=== PATIENT | female | born 1945 | race Caucasian/White ===

== ENCOUNTER 2023-08-15 18:01 | Inpatient (IN) | payer OTHER, SELFPAY ==
--- NOTE | ~2023-08-15 | XR_ITS ---
EXAMINATION: XR CHEST CLINICAL INFORMATION: Tachycardia, rule out pneumonia COMPARISON: None available. TECHNIQUE: Frontal view of the chest was obtained. FINDINGS: The heart and mediastinal borders are normal. No pleural effusion. No focal consolidation. Bilateral glenohumeral degenerative changes. XR/XR chest 1V IMPRESSION: No focal consolidation to suggest pneumonia.
[2023-08-15 18:45] VITALS: BP 177/85; PULSE 82; RESP 15; TEMP 36.7; O2SAT 97
[2023-08-15 18:50] VITALS: BMI 29.1
[2023-08-15 20:00] VITALS: BP 139/69; PULSE 82; RESP 18; TEMP 36.8; O2SAT 97
--- NOTE | 2023-08-15 22:15 | PC.ADMIT ---
patient arrived on unit via stretcher 08/15/23 at 1842, patient had been endorsing SI before arriving at [facility], Patient says Zoloft had not been helping with her depression, she says she feels depressed, patient said she had a fall last week, got stuck and couldn't get up. she said she was laying there thinking how she could end her life. she says she gas been upset since. Med Hx RA, Glaucoma, patient contracts for safety, says she wants to sleep and will do assessments in morning.
--- NOTE | 2023-08-16 | ECG_ITS ---
Test Reason : R/O qtc elongation Blood Pressure : / mmHG Vent. Rate : 171 BPM Atrial Rate : 000 BPM P-R Int : 000 ms QRS Dur : 064 ms QT Int : 232 ms P-R-T Axes : 000 046 -88 degrees QTc Int : [address] depression, consider subendocardial injury Nonspecific T wave abnormality Abnormal ECG No previous ECGs available Referred By: Espinoza Ferguson Electronically Signed By:CHRISTY YU MD
--- NOTE | 2023-08-16 07:05 | HO.PSYADMNOT ---
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 She was rushed to [facility] medically cleared. Apparently the patient had been more depressed and in the last days her psychiatrist started on a low dose of Zoloft but apparently worked only for the 1st days and she felt more depressed. While she was at [facility] she disclosed suicidal ideation without a clear plan or intent and she was transferring to this facility for psychiatric stabilization. On the intake interview, the patient reported that she had been feeling depressed with depressed mood, anhedonia, lack of energy, feelings of hopelessness and recently with suicidal ideation after a short trial of Zoloft 25 p.o. daily. She denies prior psychiatric history, she adamantly denies psychotic symptoms and she is able to contract for safety in the facility. While we were interviewing her, she reported that she was feeling very dizzy even though that her vital signs were stable. We order CBC, UA and an EKG on top of her regular blood work that was done today in the morning. We discussed risks, benefits, side-effects and alternatives and she agreed to continue treatment. We will try to gather more collateral information. Past Psychiatric History: She denies prior psychiatric admissions, she started Zoloft recently by his primary care physician. Medical Evaluation Reviewed: Hospitalist Jean Pending [facility] Family History: Denies Social History: The patient is the 2nd of 3 children, her milestones were achieved at expected age and she was raised by her parents. 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 She has never been she does not have any children. Substance History: Denies current substance abuse Trauma History: Denies Diagnostics Vital Signs (24Hr): Vital Signs - 24 hr 08/15/23 18:45 08/15/23 20:00 Temperature 98.1 F 98.3 F Pulse Rate 82 82 Respiratory Rate 15 18 Blood Pressure 177/85 H 139/69 Pulse Oximetry 97 97 Oxygen Delivery Method Room Air Room Air BMI result Body Mass Index 29.1 Labs 08/16/23 06:51 Meds/Allergies Meds Home Medications ?Medication ?Instructions ?Recorded ?Confirmed ?Type aspirin 325 mg tablet 325 mg PO BID 08/15/23 08/15/23 History celecoxib 200 mg capsule 200 mg PO DAILY 08/15/23 08/15/23 History docusate sodium 100 mg capsule 100 mg PO 08/15/23 History (Colace) folic acid 1 mg tablet 1 mg PO DAILY 08/15/23 08/15/23 History latanoprost 0.005 % eye drops 1 drp ophthalmic (eye) BEDTIME 08/15/23 08/15/23 History leflunomide 20 mg tablet 20 mg PO DAILY 08/15/23 08/15/23 History methotrexate 25 subcut QWEEK 08/15/23 History pantoprazole 40 mg tablet,delayed 40 mg PO DAILY 08/15/23 08/15/23 History release polyethylene glycol 3350 PO DAILY 08/15/23 History senna 187 mg tablet mg PO 08/15/23 History Allergies Allergies Allergy/AdvReac Type Severity Reaction Status Date / Time etanercept [From Enbrel] Allergy Unknown Unknown Verified 08/15/23 18:23 Mental Status Exam Mental Status Exam Patient Appearance: Well Grooomed and Appropriate (On hospital gowns) Patient Orientation: Person, Place and Situation Level of Consciousness: Awake and Appropriate Patient Behavior: Appropriate and Passive Mood Description: Calm Affect Description: Constricted Patient Cognition Impaired: No Ability to Follow Directions: Good Speech Pattern: Clear Hallucinations: None Delusions: Not Present Thought Process: Distracted and Slowed Thinking Thought Content: positive for Keavy and positive for Circumstantial Judgement: Fair Assessment & Plan Assessment & Plan (1) Major depressive disorder: Status: Acute Code(s): F32.9 - Major depressive disorder, single episode, unspecified Plan The patient is an elderly female single, with no children with no prior psychiatric history who was referred from another hospital for suicidal ideation in the context of exacerbation of depressive symptoms. She was recently started on a low dose of Zoloft. On intake, she adamantly denies psychotic symptoms and she was able to contract for safety. Plan 1. Gather collateral information. 2. The patient agreed to contract for safety and we will change her observation to 15 minutes checks. 3. Continue Zoloft 25 p.o. daily. 4. Medical workout. We are ordering CBC, EKG and a UA since the patient was feeling dizzy the moment of the interview. 5. Reassessment with results. Patient educated on: diagnosis and therapeutic strategies Informed Consent: understands Reason for continued inpatient stay Substantial Risk for: inability to function, rapid decompensation and med/psych decompensation Statement Statement: I have reviewed the history and physical and performed a pertinent examination on my patient. No changes have occurred unless specified. If the History and Physical was not performed prior to admission, the Hospitalist's service will be consulted for completing the admission physical. Time Spent With Patient Time: Total time managing care of this patient today __45__ minutes.
[2023-08-16 07:55] LABS: Alanine Aminotransferase 22 U/L (0-31); Albumin Level 2.9 g/dL (3.5-5.0); Alkaline Phosphatase 85 U/L (39-117); Anion Gap 14 (12-20); Aspartate Amino Transferase 31 U/L (5-31); Bilirubin Total 0.7 mg/dL (0.0-1.0); Blood Urea Nitrogen 10 mg/dL (9-16); Carbon Dioxide 19 mmol/L (22-29); Chloride 105 mmol/L (96-108); Cholesterol 117 mg/dL (<200); Creatinine Clr Calc Pharmacy 56.8; Estimated Glomerular Filt Rate > 60; Glucose Fasting 131 mg/dL (60-99); HDL Cholesterol 37 mg/dL (>40); LDL Cholesterol Calculated 66 mg/dL (<100); Potassium 4.1 mmol/L (3.3-5.1); Sodium 134 mmol/L (135-145); Triglycerides 71 mg/dL (<150)
[2023-08-16 08:28] VITALS: BP 99/56; PULSE 81; RESP 15; TEMP 36.9; O2SAT 96
[2023-08-16] MEDS: Leflunomide 10 MG TABLET 20 MG PO (08:33)
[2023-08-16] MEDS: Folic Acid 1 MG TABLET PO (08:33)
[2023-08-16] MEDS: Celecoxib 200 MG CAPSULE PO (08:33)
[2023-08-16] MEDS: Aspirin 325 MG TABLET PO ×2 (08:46→20:53)
--- NOTE | 2023-08-16 10:02 | PC.NURSE ---
Pt suddenly became very sweaty, dizzy, and reported that she felt liike she was going to pass out . VSS. Reported to Dr. Ferguson who came out to see pt and stated he will order blood and urine work.
[2023-08-16 10:03] VITALS: BP 122/62; PULSE 90; RESP 16; TEMP 36.9; O2SAT 94
[2023-08-16 11:10] LABS: Hematocrit 37.8 % (37.0-47.0); Hemoglobin 12.4 g/dl (12.0-16.0); Mean Corpuscular HGB Conc 32.8 g/dl (31.0-35.0); Mean Corpuscular Hemoglobin 29.7 pg (27.0-33.0); Mean Corpuscular Volume 90.6 fL (80.0-98.0); Mean Platelet Volume 10.5 fL (9.4-12.3); Platelet Count 232 X10*3/uL (160-400); Red Blood Count 4.17 X10*6/uL (4.20-5.50); Red Cell Distribution Width 17.1 % (11.0-16.0); White Blood Count 10.8 X10*3/uL (4.8-10.8)
[2023-08-16 11:42] LABS: Appearance Urine Clear; Color Urine Yellow; Glucose Urine UA Negative (Negative); Leukocyte Esterase Urine Moderate (2+) (Negative); Nitrite Urine Negative (Negative); PH 6.5 (5.0-9.0); UMIC TRIGGER UACC YES; Urine Blood Negative (Negative); Urine Ketones Negative (Negative); Urine Protein Trace mg/dL (Neg-Trace)
[2023-08-16 11:50] LABS: SLIDE REVIEW MANUAL DIFF
[2023-08-16] MEDS: LORazepam 0.5 MG TABLET 0.25 MG PO (12:11)
[2023-08-16 12:12] VITALS: BP 101/60; PULSE 76
[2023-08-16] MEDS: Metoprolol Tartrate 25 MG TABLET PO (12:12)
[2023-08-16 12:15] LABS: Atypical Lymph Absolute Manual 0.4 x10*3/uL; Atypical Lymphs Percent Manual 4 % (0-6); Band Neutrophils Percent 4 % (3-5); Lymphocytes Absolute Manual 2.5 X10*3/uL (1.2-4.9); Lymphocytes Percent Manual 23 % (20-40); Metamyelocytes Absolute 0.1 X10*3/uL; Metamyelocytes Percent 1 %; Monocytes Absolute Manual 0.2 X10*3/uL (0.1-1.2); Monocytes Percent Manual 2 % (2-11); Neutrophils Absolute Manual 7.6 X10*3/uL (2.0-8.3); Neutrophils Percent Manual 66 % (45-73)
[2023-08-16 12:16] LABS: Platelet Estimate NORMAL (NORMAL); Platelet Morphology Comment NORMAL; RBC Morphology NORMAL; Smudge Cells PRESENT
--- NOTE | 2023-08-16 12:20 | PC.NURSE ---
Pt had EKG in response to symptoms-see previous note for additional information. EKG showed several concerns (see cardiac for reading) and a rapid response was called. This commercial insurance underwriter as well as Rocio Estrada (nursing sup dungeon master) questioned Niki Quinn with his decision to not send pt to [facility] for additional monitoring. He decided to keep pt on this floor. Pt will continue to be monitored.
[2023-08-16 12:53] LABS: Bacteria Urine Trace (None Seen); Hyaline Casts Urine 0-2 /LPF (0-2); RBC Urine 0-2 /HPF (0-2); UACC Culture Trigger YES
--- NOTE | 2023-08-16 13:07 | P.CONHOSP_ITS ---
History of Present Illness Data of Consult Service Date: 08/16/23 Primary Care Provider: Noe Dejesus MD HPI Reason for consult: Admission H&P and Rapid Response for abdnormal EKG Pt is a 77-year-old female with a PMH significant for?mild intermittent astham, rheumatoid arthritis, glaucoma, and depression who is admitted to [facility] for increasing depression with SI with plans for overdosing on her home medications. Initial medical consult for admission H&P. ?However, before patient could be seen a rapid response was called for abnormal EKG and elevated heart rate. Patient was sitting in the common area when she began to feel hot, diaphoretic, lightheaded, and felt like her heart was racing. Nursing noted elevated heart rate and EKG was done which showed sinus tachycardia of 171 but no evidence of significant ischemia. During this time patient denied chest pain or pressure and other vitals were stable, including BP. No shortness a breath or difficulty breathing. Repeat EKG was taken which showed sinus rhythm of 86 with PACs. Patient was given metoprolol 25 mg p.o. patient denies any other acute medical complaints. No nausea, vomiting, abdominal pain. No shortness a breath or difficulty breathing. No orthopnea. Denies polyuria or dysuria. States she was recently started on Zoloft last and initially had some improvement which did not last and she stopped taking it. Also notes she is on leflunomide and methotrexate for rheumatoid arthritis, though has missed her past two methotrexate weekly injections due to scheduling conflicts. Denies any significant cardiovascular history. Denies experiencing similar feelings before. Review of [facility] records show EKG with sinus rhythm of 83 with PACs, similar to repeat EKG here. Review of Systems 2 Review of Systems: Hot, diaphoretic Lightheadedness Palpitations/racing heart Denies chest pain/pressure No nausea, vomiting, abdominal pain Denies shortness of breath or difficulty breathing No headache or acute vision changes Denies changes to bowel or bladder habits. PMFSH Social History Household Members: None Housing: House Do you presently have visiting nurse or other home services: No Patient Tobacco Use Status: Never used Tobacco e-Cigarette/Vaping Use: Never Used Patient Interested in Nicotine Replacement: No Substance Use Type: Marijuana Substance Use Frequency: Monthly Last Used Substance: Weeks (ago) Currently Displaying Signs/Symptoms of Drug Intoxication Withdrawal: No Any prior treatment program specific to substance use: No Have you been hit, kicked, punched, or otherwise hurt by someone within the past year? If so, by whom?: No Do you feel safe in your current relationship?: No Current Relationship Is there a partner from a previous relationship who is making you feel unsafe now?: No Are you made to feel afraid or neglected: No Spiritual Healthcare Practices: Yoga Advance Directives: No Advance Directives Information Provided: No Do you have thoughts of harming others: None Do you have a plan to hurt others: No Plan Recently lost weight without trying: Yes How much weight loss: 2-13 pounds Eating poorly because of decreased appetite: Yes Nutrition screen score: 4 Nutrition Risks: No Nutritional Risk Patient : No : No Poor oral hygiene: No Meds Allergies Allergy/AdvReac Type Severity Reaction Status Date / Time etanercept [From Enbrel] Allergy Unknown Unknown Verified 08/15/23 18:23 Active Medications: Current Medications Acetaminophen (Acetaminophen 325 Mg Tablet) 650 mg PO Q6H PRN PRN Reason: Headache/Pain Mild Scale (1-3) Al Hydroxide/Mg Hydroxide (Magnesium Hydrox/Alum Hydrox 30 Ml Oral.Susp) 30 ml PO Q6H PRN PRN Reason: Heartburn/Nausea Aspirin (Aspirin 325 Mg Tablet) 325 mg PO BID [facility] Last Admin: 08/16/23 08:46 Dose: 325 mg Celecoxib (Celecoxib 200 Mg Capsule) 200 mg PO DAILY [facility] Last Admin: 08/16/23 08:33 Dose: 200 mg Folic Acid (Folic Acid 1 Mg Tablet) 1 mg PO DAILY [facility] Last Admin: 08/16/23 08:33 Dose: 1 mg Hydroxyzine HCl (Hydroxyzine Hcl 25 Mg Tablet) 25 mg PO Q6H PRN PRN Reason: Anxiety Latanoprost (Latanoprost 0.005 % Ophth Susana 2.5 Ml Drops) 1 drop EYE-BOTH BEDTIME [facility] Leflunomide (Leflunomide 10 Mg Tablet) 20 mg PO DAILY [facility] Last Admin: 08/16/23 08:33 Dose: 20 mg Magnesium Hydroxide (Milk Of Magnesia 30 Ml Oral.Susp) 30 ml PO DAILY PRN PRN Reason: Constipation Omeprazole (Omeprazole 20 Mg Capsule.Dr) 40 mg PO DAILY [facility] Last Admin: 08/16/23 08:31 Dose: Not Given Trazodone HCl (Trazodone Hcl 50 Mg Tablet) 50 mg PO BEDTIME MRX1 PRN PRN Reason: Insomnia Home Medications ?Medication ?Instructions ?Recorded ?Confirmed ?Last Taken ?Type aspirin 325 mg tablet 325 mg PO BID 08/15/23 08/15/23 Unknown History celecoxib 200 mg capsule 200 mg PO DAILY 08/15/23 08/15/23 Unknown History docusate sodium 100 mg capsule 100 mg PO 08/15/23 Unknown History (Colace) folic acid 1 mg tablet 1 mg PO DAILY 08/15/23 08/15/23 Unknown History latanoprost 0.005 % eye drops 1 drp ophthalmic (eye) BEDTIME 08/15/23 08/15/23 Unknown History leflunomide 20 mg tablet 20 mg PO DAILY 08/15/23 08/15/23 Unknown History methotrexate 25 subcut QWEEK 08/15/23 Unknown History pantoprazole 40 mg tablet,delayed 40 mg PO DAILY 08/15/23 08/15/23 Unknown History release polyethylene glycol 3350 PO DAILY 08/15/23 Unknown History senna 187 mg tablet mg PO 08/15/23 Unknown History Physical Exam 2 Vital Signs and Narrative: Vital Signs: Last Vital Signs Temp 98.4 F 08/16/23 10:03 Pulse 76 08/16/23 12:12 Resp 16 08/16/23 10:03 BP 101/60 08/16/23 12:12 Pulse Ox 94 08/16/23 10:03 O2 Del Method Room Air 08/16/23 10:03 BMI result Body Mass Index 29.1 General: AOx3, no acute distress Resp: CTA bilaterally CVS: S1, S2, RRR GI: +BS, NT, no distention Skin: Warm, dry Neuro: Cranial nerves II-XII grossly intact bilaterally. Motor grossly intact bilaterally Extremities: 1+ pitting edema Psych: Appropriate affect Results Labs 08/16/23 10:58 08/16/23 06:51 Labs: Laboratory Results - last 24 hr 08/16/23 08/16/23 08/16/23 06:51 10:58 11:10 MCV 90.6 MCH 29.7 MCHC 32.8 RDW 17.1 H Plt Count 232 MPV 10.5 Immature Gran % (Auto) Cancelled Neut % (Auto) Cancelled Lymph % (Auto) Cancelled Larimer % (Auto) Cancelled Eos % (Auto) Cancelled Baso % (Auto) Cancelled Lymph # (Auto) Cancelled Larimer # (Auto) Cancelled Eos # (Auto) Cancelled Baso # (Auto) Cancelled Abs Immat Gran (auto) Cancelled Absolute Neuts (auto) Cancelled Absolute Nucleated RBC 0.000 Nucleated RBC % (auto) 0.0 Neutrophils % (Manual) 66 Band Neutrophils % 4 Lymphocytes % (Manual) 23 Atypical Lymphs % (Man) 4 Monocytes % (Manual) 2 Metamyelocytes % 1 Abs Neuts (Manual) 7.6 Lymphocytes # (Manual) 2.5 Atyp Lymphs # (Manual) 0.4 Monocytes # (Manual) 0.2 Metamyelocytes # 0.1 Smudge Cells PRESENT Platelet Estimate NORMAL Plt Morphology Comment NORMAL RBC Morphology NORMAL Smear Tech's Comments MANUAL DIFF Anion Gap 14 Estim Creat Clear Calc 56.8 Estimated GFR > 60 Fasting Glucose 131 H Calcium 8.0 L Total Bilirubin 0.7 AST 31 ALT 22 Alkaline Phosphatase 85 Total Protein 6.0 L Albumin 2.9 L Triglycerides 71 Cholesterol 117 LDL Cholesterol, Calc 66 HDL Cholesterol 37 L Urine Color Yellow Urine Appearance Clear Urine pH 6.5 Ur Specific Ulysses 1.010 Urine Protein Trace Urine Glucose (UA) Negative Urine Ketones Negative Urine Blood Negative Urine Nitrite Negative Ur Leukocyte Esterase Moderate (2+) H Urine RBC 0-2 Urine WBC 11-20 H Ur Squamous Epith Cells 3-5 Urine Bacteria Trace Hyaline Casts 0-2 Assessment and Plan (1) Tachycardia: Status: Acute Plan Pt is a 77-year-old female with a PMH significant for?mild intermittent asthma, rheumatoid arthritis, glaucoma, and depression who is admitted to [facility] for increasing depression with SI with plans for overdosing on her home medications. Initial medical consult for admission H&P. ?However, before patient could be seen a rapid response was called for abnormal EKG and elevated heart rate. Tachycardia/abnormal EKG Pt with episode of diaphoresis, lightheadedness, palpitations Initial EKG sinus tachycardia into 170s without evidence of significant ischemia Subsequent EKG showed sinus rhythm of 86 with PACs, similar to prior EKG at [facility] Patient was given 25 mg metoprolol p.o. CBC, CMP grossly unremarkable TSH 1.58 at [facility] yesterday UA today positive for leukocyte esterase, WBCs 11-20, epithelial cells 3-5, and trace bacteria UA yesterday at [facility] negative Will empirically treat with Ceftin 250mg p.o. bid x3 days Follow urine cultures Mood disorder Plan as per psychiatry Rheumatoid arthritis Continue leflunomide, methotrexate Glaucoma Continue latanoprost GERD Continue PPI Mild intermittent asthma Not in acute exacerbation Patient not on home inhalers Patient appears stable and back to baseline. Currently no need to bring patient to the medical floor. We will continue following for now and monitoring patient's heart rate and other vitals along with you. If additional episode of tachycardia and palpitations occur, will have a low threshold for admitting to medicine.
[2023-08-16] MEDS: cefuroxime axetiL 250 MG TABLET PO (14:51)
[2023-08-16 16:23] LABS: Glucose, Whole Blood 142 mg/dL (60-115)
[2023-08-16 17:30] LABS: Amphetamine Screen Urine Not Detected (Not Detect); Barbiturates, Urine Not Detected (Not Detect); Benzodiazepines Screen Urine Not Detected (Not Detect); Buprenorphine Scr Not Detected (Not Detect); Cannabinoid Screen Urine Not Detected (Not Detect); Cocaine Screen Urine Not Detected (Not Detect); Fentanyl, urine Not Detected (Not Detect); Methadone Screen, Urine Not Detected (Not Detect); Opiate Screen Urine Not Detected (Not Detect); Oxycodone Screen Urine Not Detected (Not Detect); Phencyclidine Screen Urine Not Detected (Not Detect)
[2023-08-16 20:00] VITALS: BP 121/66; PULSE 79; RESP 18; TEMP 36.3; O2SAT 97
[2023-08-16] MEDS: Latanoprost 0.005 % Ophth Sol 2.5 ML DROPS 1 DROP EYE-BOTH (20:54)
[2023-08-17] MEDS: cefuroxime axetiL 250 MG TABLET PO ×2 (03:49→13:26)
[2023-08-17 06:52] LABS: Thyroid Stimulating Hormone 1.46 uIU/mL (0.32-4.0)
[2023-08-17 08:06] VITALS: BP 123/63; PULSE 90; RESP 18; TEMP 36.2; O2SAT 97
--- NOTE | 2023-08-17 09:26 | HO.PSYCHPN ---
Subjective Subjective Date of Service: 08/17/23 Reason For Visit: Unspecified depressive disorder Subjective Notes: Section 12B Interim History: The nursing staff reported the patient slept well last night. Yesterday we had a code because she was feeling dizzy and the EKG showed SVT she received 1 time metoprolol with resolution of symptoms and Ativan 0.25. Later on she stated that Ativan helped for a lot and requested for more. Later on yesterday, a friend came and visited her and provided some collateral information. Apparently she had been abusing of marijuana in the past and probably she was psychotic due to THC. On interview the patient reported that she slept well she was mildly anxious after the SVT episode. We are going to follow her closely. Mental Status Exam Mental Status Exam Patient Appearance: Well Grooomed and Appropriate Patient Orientation: Person and Situation Level of Consciousness: Awake and Appropriate Patient Behavior: Guarded and Passive Mood Description: Withdrawn Affect Description: Constricted Patient Cognition Impaired: Yes Ability to Follow Directions: Good Speech Pattern: Clear Hallucinations: None Delusions: Ideas of Reference Thought Process: Distracted and Slowed Thinking Thought Content: positive for [place] and positive for Poverty of Content Judgement: Fair Diagnostics Vital Signs (24Hr): Vital Signs - 24 hr 08/16/23 10:03 08/16/23 12:12 08/16/23 20:00 Temperature 98.4 F 97.4 F Pulse Rate 90 76 79 Respiratory Rate 16 18 Blood Pressure 122/62 101/60 121/66 Pulse Oximetry 94 97 Oxygen Delivery Method Room Air Room Air BMI result Body Mass Index 29.1 Labs 08/16/23 10:58 08/16/23 06:51 Labs: Laboratory Results - last 48 hr 08/16/23 08/16/23 08/16/23 06:51 10:58 11:10 WBC 10.8 RBC 4.17 L Hgb 12.4 Hct 37.8 MCV 90.6 MCH 29.7 MCHC 32.8 RDW 17.1 H Plt Count 232 MPV 10.5 Immature Gran % (Auto) Cancelled Neut % (Auto) Cancelled Lymph % (Auto) Cancelled [place] % (Auto) Cancelled Eos % (Auto) Cancelled Baso % (Auto) Cancelled Lymph # (Auto) Cancelled [place] # (Auto) Cancelled Eos # (Auto) Cancelled Baso # (Auto) Cancelled Abs Immat Gran (auto) Cancelled Absolute Neuts (auto) Cancelled Absolute Nucleated RBC 0.000 Nucleated RBC % (auto) 0.0 Neutrophils % (Manual) 66 Band Neutrophils % 4 Lymphocytes % (Manual) 23 Atypical Lymphs % (Man) 4 Monocytes % (Manual) 2 Metamyelocytes % 1 Abs Neuts (Manual) 7.6 Lymphocytes # (Manual) 2.5 Atyp Lymphs # (Manual) 0.4 Monocytes # (Manual) 0.2 Metamyelocytes # 0.1 Smudge Cells PRESENT Platelet Estimate NORMAL Plt Morphology Comment NORMAL RBC Morphology NORMAL Smear Tech's Comments MANUAL DIFF Hold Purple Top Sodium 134 L Potassium 4.1 Chloride 105 Carbon Dioxide 19 L Anion Gap 14 BUN 10 Creatinine 0.66 Estim Creat Clear Calc 56.8 Estimated GFR > 60 POC Glucose Fasting Glucose 131 H Calcium 8.0 L Total Bilirubin 0.7 AST 31 ALT 22 Alkaline Phosphatase 85 Total Protein 6.0 L Albumin 2.9 L Triglycerides 71 Cholesterol 117 LDL Cholesterol, Calc 66 HDL Cholesterol 37 L TSH Free T4 Cancelled Urine Color Yellow Urine Appearance Clear Urine pH 6.5 Ur Specific [place] 1.010 Urine Protein Trace Urine Glucose (UA) Negative Urine Ketones Negative Urine Blood Negative Urine Nitrite Negative Ur Leukocyte Esterase Moderate (2+) H Urine RBC 0-2 Urine WBC 11-20 H Ur Squamous Epith Cells 3-5 Urine Bacteria Trace Hyaline Casts 0-2 Urine Opiates Screen Not Detected Ur Buprenorphine Scrn Not Detected Ur Oxycodone Screen Not Detected Urine Methadone Screen Not Detected Urine Fentanyl Screen Not Detected Ur Barbiturates Screen Not Detected Ur Phencyclidine Scrn Not Detected Ur Amphetamines Screen Not Detected U Benzodiazepines Scrn Not Detected Urine Cocaine Screen Not Detected U Marijuana (THC) Screen Not Detected 08/16/23 08/17/23 08/17/23 11:31 06:03 06:08 WBC RBC Hgb Hct MCV MCH MCHC RDW Plt Count MPV Immature Gran % (Auto) Neut % (Auto) Lymph % (Auto) [place] % (Auto) Eos % (Auto) Baso % (Auto) Lymph # (Auto) [place] # (Auto) Eos # (Auto) Baso # (Auto) Abs Immat Gran (auto) Absolute Neuts (auto) Absolute Nucleated RBC Nucleated RBC % (auto) Neutrophils % (Manual) Band Neutrophils % Lymphocytes % (Manual) Atypical Lymphs % (Man) Monocytes % (Manual) Metamyelocytes % Abs Neuts (Manual) Lymphocytes # (Manual) Atyp Lymphs # (Manual) Monocytes # (Manual) Metamyelocytes # Smudge Cells Platelet Estimate Plt Morphology Comment RBC Morphology Smear Tech's Comments Hold Purple Top SEE NOTE Sodium Potassium Chloride Carbon Dioxide Anion Gap BUN Creatinine Estim Creat Clear Calc Estimated GFR POC Glucose 142 H Fasting Glucose Calcium Total Bilirubin AST ALT Alkaline Phosphatase Total Protein Albumin Triglycerides Cholesterol LDL Cholesterol, Calc HDL Cholesterol TSH 1.46 Free T4 Urine Color Urine Appearance Urine pH Ur Specific [place] Urine Protein Urine Glucose (UA) Urine Ketones Urine Blood Urine Nitrite Ur Leukocyte Esterase Urine RBC Urine WBC Ur Squamous Epith Cells Urine Bacteria Hyaline Casts Urine Opiates Screen Ur Buprenorphine Scrn Ur Oxycodone Screen Urine Methadone Screen Urine Fentanyl Screen Ur Barbiturates Screen Ur Phencyclidine Scrn Ur Amphetamines Screen U Benzodiazepines Scrn Urine Cocaine Screen U Marijuana (THC) Screen Imaging Radiology Impressions: ITS Impressions Chest X-Ray 08/16/23 12:05 IMPRESSION: No focal consolidation to suggest pneumonia. Medications Medications Current Medications Acetaminophen (Acetaminophen 325 Mg Tablet) 650 mg PO Q6H PRN PRN Reason: Headache/Pain Mild Scale (1-3) Al Hydroxide/Mg Hydroxide (Magnesium Hydrox/Alum Hydrox 30 Ml Oral.Susp) 30 ml PO Q6H PRN PRN Reason: Heartburn/Nausea Aspirin (Aspirin 325 Mg Tablet) 325 mg PO BID [facility] Last Admin: 08/16/23 20:53 Dose: 325 mg Cefuroxime Axetil (Cefuroxime Axetil 250 Mg Tablet) 250 mg PO Q12H [facility] Stop: 08/19/23 13:59 Last Admin: 08/17/23 03:49 Dose: 250 mg Celecoxib (Celecoxib 200 Mg Capsule) 200 mg PO DAILY [facility] Last Admin: 08/16/23 08:33 Dose: 200 mg Folic Acid (Folic Acid 1 Mg Tablet) 1 mg PO DAILY [facility] Last Admin: 08/16/23 08:33 Dose: 1 mg Hydroxyzine HCl (Hydroxyzine Hcl 25 Mg Tablet) 25 mg PO Q6H PRN PRN Reason: Anxiety Latanoprost (Latanoprost 0.005 % Ophth Susana 2.5 Ml Drops) 1 drop EYE-BOTH BEDTIME [facility] Last Admin: 08/16/23 20:54 Dose: 1 drop Leflunomide (Leflunomide 10 Mg Tablet) 20 mg PO DAILY [facility] Last Admin: 08/16/23 08:33 Dose: 20 mg Magnesium Hydroxide (Milk Of Magnesia 30 Ml Oral.Susp) 30 ml PO DAILY PRN PRN Reason: Constipation Omeprazole (Omeprazole 20 Mg Capsule.Dr) 40 mg PO DAILY [facility] Last Admin: 08/16/23 08:31 Dose: Not Given Trazodone HCl (Trazodone Hcl 50 Mg Tablet) 50 mg PO BEDTIME MRX1 PRN PRN Reason: Insomnia Allergies Allergies Allergy/AdvReac Type Severity Reaction Status Date / Time etanercept [From Enbrel] Allergy Unknown Unknown Verified 08/15/23 18:23 Assessment & Plan Assessment & Plan (1) Tachycardia: Status: Acute Code(s): R00.0 - Tachycardia, unspecified Plan Pt is a 77-year-old female with a PMH significant for?mild intermittent asthma, rheumatoid arthritis, glaucoma, and depression who is admitted to [facility] for increasing depression with SI with plans for overdosing on her home medications. Initial medical consult for admission H&P. ?However, before patient could be seen a rapid response was called for abnormal EKG and elevated heart rate. Tachycardia/abnormal EKG Pt with episode of diaphoresis, lightheadedness, palpitations Initial EKG sinus tachycardia into 170s without evidence of significant ischemia Subsequent EKG showed sinus rhythm of 86 with PACs, similar to prior EKG at [facility] Patient was given 25 mg metoprolol p.o. CBC, CMP grossly unremarkable TSH 1.58 at [facility] yesterday UA today positive for leukocyte esterase, WBCs 11-20, epithelial cells 3-5, and trace bacteria UA yesterday at [facility] negative Will empirically treat with Ceftin 250mg p.o. bid x3 days Follow urine cultures Mood disorder Plan as per psychiatry Rheumatoid arthritis Continue leflunomide, methotrexate Glaucoma Continue latanoprost GERD Continue PPI Mild intermittent asthma Not in acute exacerbation Patient not on home inhalers Patient appears stable and back to baseline. Currently no need to bring patient to the medical floor. We will continue following for now and monitoring patient's heart rate and other vitals along with you. If additional episode of tachycardia and palpitations occur, will have a low threshold for admitting to medicine. Plan 1. Gather collateral information. 2. Continue with Zoloft 25 mg p.o. daily. 3. Apparently the patient had an SVT episode and we will follow closely with Medicine. Reason for continued inpatient stay Substantial Risk for: inability to function, rapid decompensation and med/psych decompensation Time Spent With Patient Time: Total time managing care of this patient today __20__ minutes.
[2023-08-17] MEDS: Omeprazole 20 MG CAPSULE.DR 40 MG PO (09:40)
[2023-08-17] MEDS: Aspirin 325 MG TABLET PO (09:40)
[2023-08-17] MEDS: Celecoxib 200 MG CAPSULE PO (09:40)
[2023-08-17] MEDS: Folic Acid 1 MG TABLET PO (09:40)
[2023-08-17] MEDS: Leflunomide 10 MG TABLET 20 MG PO (09:41)
[2023-08-17 12:50] VITALS: BP 113/71; PULSE 173; RESP 18; TEMP 36.7; O2SAT 97
--- NOTE | 2023-08-17 13:03 | ECG_ITS ---
Test Reason : Tachycardia Blood Pressure : / mmHG Vent. Rate : 168 BPM Atrial Rate : 000 BPM P-R Int : 000 ms QRS Dur : 070 ms QT Int : 280 ms P-R-T Axes : 000 050 090 degrees QTc Int : 468 ms Supraventricular tachycardia Nonspecific ST and T wave abnormality Abnormal ECG When compared with ECG of 17-AUG-2023 13:00, No significant changes seen Referred By: Espinoza Ferguson Electronically Signed By:GUY ABBOTT
[2023-08-17 13:26] VITALS: BP 113/71; PULSE 99
[2023-08-17] MEDS: Metoprolol Tartrate 25 MG TABLET PO (13:26)
--- NOTE | 2023-08-17 13:26 | PM.PSYDC ---
DS: Providers Provider Date of Service: 08/17/23 Date of admission: 08/15/23 18:01 Date of discharge: 08/17/23 Primary care physician: Noe Dejesus MD Consults: 08/15/23 18:23 Consult to Hospitalist Routine Comment: Consulting Provider: Hospitalist Reason For Exam: Direct admission DS: Diagnosis Discharge Diagnosis (1) Tachycardia: Status: Acute DS: Medications Discharge Medications Home Medications: Home Medications ?Medication ?Instructions ?Recorded ?Confirmed aspirin 325 mg tablet 325 mg PO BID 08/15/23 08/15/23 celecoxib 200 mg capsule 200 mg PO DAILY 08/15/23 08/15/23 docusate sodium 100 mg capsule 100 mg PO 08/15/23 (Colace) folic acid 1 mg tablet 1 mg PO DAILY 08/15/23 08/15/23 latanoprost 0.005 % eye drops 1 drp ophthalmic (eye) BEDTIME 08/15/23 08/15/23 leflunomide 20 mg tablet 20 mg PO DAILY 08/15/23 08/15/23 methotrexate 25 subcut QWEEK 08/15/23 pantoprazole 40 mg tablet,delayed 40 mg PO DAILY 08/15/23 08/15/23 release polyethylene glycol 3350 PO DAILY 08/15/23 senna 187 mg tablet mg PO 08/15/23 Mental Status Exam Mental Status Exam Patient Appearance: Well Grooomed and Appropriate Patient Orientation: Person, Place, Time and Situation Level of Consciousness: Awake and Appropriate Patient Behavior: Appropriate and Cooperative Mood Description: Withdrawn Affect Description: Constricted Patient Cognition Impaired: No Ability to Follow Directions: Good Speech Pattern: Clear Hallucinations: None Delusions: Not Present Thought Process: Distracted and Linear Thought Content: positive for Circumstantial Judgement: Fair Data Data Completed and Pending Completed studies during hospitalization [Text1]: 08/16/23 08/16/23 08/16/23 06:51 10:58 11:10 WBC 10.8 RBC 4.17 L Hgb 12.4 Hct 37.8 MCV 90.6 MCH 29.7 MCHC 32.8 RDW 17.1 H Plt Count 232 MPV 10.5 Immature Gran % (Auto) Cancelled Neut % (Auto) Cancelled Lymph % (Auto) Cancelled [place] % (Auto) Cancelled Eos % (Auto) Cancelled Baso % (Auto) Cancelled Lymph # (Auto) Cancelled [place] # (Auto) Cancelled Eos # (Auto) Cancelled Baso # (Auto) Cancelled Abs Immat Gran (auto) Cancelled Absolute Neuts (auto) Cancelled Absolute Nucleated RBC 0.000 Nucleated RBC % (auto) 0.0 Neutrophils % (Manual) 66 Band Neutrophils % 4 Lymphocytes % (Manual) 23 Atypical Lymphs % (Man) 4 Monocytes % (Manual) 2 Metamyelocytes % 1 Abs Neuts (Manual) 7.6 Lymphocytes # (Manual) 2.5 Atyp Lymphs # (Manual) 0.4 Monocytes # (Manual) 0.2 Metamyelocytes # 0.1 Smudge Cells PRESENT Platelet Estimate NORMAL Plt Morphology Comment NORMAL RBC Morphology NORMAL Smear Tech's Comments MANUAL DIFF Hold Purple Top Sodium 134 L Potassium 4.1 Chloride 105 Carbon Dioxide 19 L Anion Gap 14 BUN 10 Creatinine 0.66 Estim Creat Clear Calc 56.8 Estimated GFR > 60 POC Glucose Fasting Glucose 131 H Calcium 8.0 L Total Bilirubin 0.7 AST 31 ALT 22 Alkaline Phosphatase 85 Total Protein 6.0 L Albumin 2.9 L Triglycerides 71 Cholesterol 117 LDL Cholesterol, Calc 66 HDL Cholesterol 37 L TSH Free T4 Cancelled Urine Color Yellow Urine Appearance Clear Urine pH 6.5 Ur Specific [place] 1.010 Urine Protein Trace Urine Glucose (UA) Negative Urine Ketones Negative Urine Blood Negative Urine Nitrite Negative Ur Leukocyte Esterase Moderate (2+) H Urine RBC 0-2 Urine WBC 11-20 H Ur Squamous Epith Cells 3-5 Urine Bacteria Trace Hyaline Casts 0-2 Urine Opiates Screen Not Detected Ur Buprenorphine Scrn Not Detected Ur Oxycodone Screen Not Detected Urine Methadone Screen Not Detected Urine Fentanyl Screen Not Detected Ur Barbiturates Screen Not Detected Ur Phencyclidine Scrn Not Detected Ur Amphetamines Screen Not Detected U Benzodiazepines Scrn Not Detected Urine Cocaine Screen Not Detected U Marijuana (THC) Screen Not Detected 08/16/23 08/17/23 08/17/23 11:31 06:03 06:08 WBC RBC Hgb Hct MCV MCH MCHC RDW Plt Count MPV Immature Gran % (Auto) Neut % (Auto) Lymph % (Auto) [place] % (Auto) Eos % (Auto) Baso % (Auto) Lymph # (Auto) [place] # (Auto) Eos # (Auto) Baso # (Auto) Abs Immat Gran (auto) Absolute Neuts (auto) Absolute Nucleated RBC Nucleated RBC % (auto) Neutrophils % (Manual) Band Neutrophils % Lymphocytes % (Manual) Atypical Lymphs % (Man) Monocytes % (Manual) Metamyelocytes % Abs Neuts (Manual) Lymphocytes # (Manual) Atyp Lymphs # (Manual) Monocytes # (Manual) Metamyelocytes # Smudge Cells Platelet Estimate Plt Morphology Comment RBC Morphology Smear Tech's Comments Hold Purple Top SEE NOTE Sodium Potassium Chloride Carbon Dioxide Anion Gap BUN Creatinine Estim Creat Clear Calc Estimated GFR POC Glucose 142 H Fasting Glucose Calcium Total Bilirubin AST ALT Alkaline Phosphatase Total Protein Albumin Triglycerides Cholesterol LDL Cholesterol, Calc HDL Cholesterol TSH 1.46 Free T4 Urine Color Urine Appearance Urine pH Ur Specific [place] Urine Protein Urine Glucose (UA) Urine Ketones Urine Blood Urine Nitrite Ur Leukocyte Esterase Urine RBC Urine WBC Ur Squamous Epith Cells Urine Bacteria Hyaline Casts Urine Opiates Screen Ur Buprenorphine Scrn Ur Oxycodone Screen Urine Methadone Screen Urine Fentanyl Screen Ur Barbiturates Screen Ur Phencyclidine Scrn Ur Amphetamines Screen U Benzodiazepines Scrn Urine Cocaine Screen U Marijuana (THC) Screen 08/16/23 Unknown Urine clean catch - Urine desai top Urine Culture - Final Imaging Diagnostic Imaging Impressions Chest X-Ray 08/16/23 12:05 IMPRESSION: No focal consolidation to suggest pneumonia. DS: Summary Hospital Course Hospital Course: The patient is a 77-year-old female with a past history of depression who was recently started on Zoloft. The patient reported that she felt ECT on her home and she felt more dysphoric with suicidal ideation. She was assessed in the emergency room of another hospital medically stabilized and transferring to this facility for psychiatric stabilization. On the intake, the patient was able to contract for safety she reported that she was feeling depressed but there were no evidence of psychosis. On the 1st 24 hours of admission the patient had an episode of dizziness with tachycardia, a code was called and it was clear that the patient had an SVT. Later on 24 hours after she had a similar episode in the medical team decided to transfer her to Medicine. Time spent discussing smoking cessation with patient: 3 to 10 minutes Status at Discharge Cognitive/behavioral status at discharge: At baseline Functional status at discharge: independent ambulation Overall status at discharge: other (The patient had an episode of dizziness and EKG showed SVTs, needs to be monitored in Medicine) Time Spent with Patient Time attestation: Total time managing care of this patient today ___30_ minutes. Time spent: Less than 30 minutes Discharge Plan Discharge Anticipated Discharge Date/Time: 08/17/23 13:29 Patient Disposition: Xfer Acute Care Hospital Discharge Diagnosis: Major depressive disorder SVT Referrals: Noe Dejesus MD [Primary Care Provider] - 1 Week Discharge Medications: New cefuroxime axetil 250 mg Tablet 250 mg PO Q12H 5 Days Qty: 10 0RF Continued celecoxib 200 mg Capsule 200 mg PO DAILY 30 Days Qty: 30 0RF latanoprost 0.005 % drops 1 drp ophthalmic (eye) BEDTIME 30 Days Qty: 5 0RF aspirin 325 mg Tablet 325 mg PO BID Qty: 60 0RF leflunomide 20 mg tablet 20 mg PO DAILY 30 Days Qty: 30 0RF pantoprazole 40 mg Tablet,Delayed Release (Dr/Ec) 40 mg PO DAILY 30 Days Qty: 30 0RF folic acid 1 mg tablet 1 mg PO DAILY 30 Days Qty: 30 0RF Discontinued docusate sodium [Colace] 100 mg Capsule 100 mg PO Rx Instructions: hold for loose stools methotrexate 25 mg 25 subcut QWEEK polyethylene glycol 3350 PO DAILY senna 187 mg Tablet PO Discharge Orders: Discharge Order (Routine); Ordered 08/17/23 Ordered By: Espinoza Ferguson Diet: Advance to usual diet Activity on Discharge: As tolerated Stand Alone Forms: Patient Portal Discharge page Print Language: Greenlandic Care Plan Goals: The patient was transferred to Medicine since she had another SVT Health Concerns: The patient was transferred to Medicine since she had another SVT Plan of Treatment: The patient was transferred to Medicine since she had another SVT Assessment: The patient is an elderly female with a past history of major depressive disorder was transferring to this facility for suicidality but while she was in the unit she presented with SVTs twice and on the 2nd occasion 24 hours after the 1st 1, the medical team decided to transfer her to Medicine for monitoring.
--- NOTE | 2023-08-17 14:16 | PC.NURSE ---
This narrative writer was notified by another RN that Fatmata felt hot and funny like she did the day previously with the incident where she was in SVT. Her HR was in the 170s however her other vital signs were stable and she denied chest pain, dizziness/lightheadedness and shortness of breath. Temp 98, RR 18, BP 113/71, and o2 sat 97%. MD Ferguson notified and airflight attendants supervisor Rocio Dotson was on the unit and contacted hospitalist and Tessa Cadena came to bedside to assess patient and stat EKG performed. HR in and out of 150s-170s and appeared irregular at times. She was given metoprolol 25mg x 1 and sent to medical telemetry unit. Report given to CEZAR Tapia on [employer].
== END 2023-08-17 13:42 | disposition short-term general hospital (02) | DRG 881 ==
PROVIDERS: Student in an Organized Health Care Education/Training Program; Admitting Provider Psychiatry & Neurology Psychiatry; PCP Internal Medicine; Visit Provider Psychiatry & Neurology Psychiatry
DX: F32.9 Major depressive disorder, single episode, unspecified (principal); I47.10 Supraventricular tachycardia, unspecified; M06.9 Rheumatoid arthritis, unspecified; K21.9 Gastro-esophageal reflux disease without esophagitis; H40.9 Unspecified glaucoma; J45.20 Mild intermittent asthma, uncomplicated; Z79.82 Long term (current) use of aspirin; Z79.631 Long term (current) use of antimetabolite agent; Z79.899 Other long term (current) drug therapy
CPT/HCPCS: 36415; 71045; 80053; 80061; 80307; 81001; 82947; 84443; 85007; 85027; 87086; 93005

== ENCOUNTER 2023-08-15 18:01 | Outpatient (BNV) | payer MEDICARE, SELFPAY | END 2023-08-16 11:22 | PROVIDERS: Admitting Provider Psychiatry & Neurology Psychiatry; PCP Internal Medicine; Visit Provider Internal Medicine Cardiovascular Disease | DX: I47.10 Supraventricular tachycardia, unspecified (principal); R94.31 Abnormal electrocardiogram [ECG] [EKG] | CPT/HCPCS: 93010 ==

== ENCOUNTER → 2023-08-15 18:01 | Outpatient (BNV) | payer MEDICARE, SELFPAY | PROVIDERS: Admitting Provider Psychiatry & Neurology Psychiatry; PCP Internal Medicine; Visit Provider Student in an Organized Health Care Education/Training Program | DX: R00.0 Tachycardia, unspecified (principal) | CPT/HCPCS: 99222 ==

== ENCOUNTER → 2023-08-15 18:01 | Outpatient (BNV) | payer MEDICARE, SELFPAY | PROVIDERS: Admitting Provider Psychiatry & Neurology Psychiatry; PCP Internal Medicine; Visit Provider Psychiatry & Neurology Psychiatry | DX: F32.2 Major depressive disorder, single episode, severe without psychotic features (principal) | CPT/HCPCS: 90792; 99238; 99499 ==

== ENCOUNTER 2023-08-17 13:45 | Inpatient (IN) | payer MEDICARE, SELFPAY ==
--- NOTE | ~2023-08-17 | XR_ITS ---
EXAMINATION: PORTABLE CHEST 1 VIEW CLINICAL INFORMATION: fever. COMPARISON: No recent pertinent prior studies are available for comparison. TECHNIQUE: Portable frontal view of the chest was obtained. FINDINGS: The lungs are hypoexpanded. No focal infiltrate, effusion, edema, or pneumothorax. Cardiac and mediastinal silhouettes are within normal limits for technique. Degenerative changes in the spine and shoulders. No acute bony abnormality seen. XR/XR chest 1V IMPRESSION: Hypoexpanded but otherwise no evidence of acute disease.
--- NOTE | ~2023-08-17 | CT_ITS ---
EXAMINATION: CT HEAD WITHOUT CONTRAST CLINICAL INFORMATION: Fall, fever COMPARISON: None available. TECHNIQUE: Contiguous axial imaging was performed from the skull base to vertex without intravenous administration of contrast. This CT examination was performed using dose optimization techniques as appropriate, variously including the following: *Automated exposure control *Adjustment of mA and/or kV according to patient size (this includes techniques or standardized protocols for targeted exams where dose is matched to indication/reason for exam; i.e. extremities or head) *Use of iterative reconstruction technique DLP: 633 mGy-cm FINDINGS: CT examination of the brain shows age-related involutional changes with prominence of the ventricles and sulci. Periventricular white matter hypodensities are evident, likely on the basis of chronic microvascular ischemic disease. There is an old right anterior internal capsule lacunar infarct. No acute hemorrhage, mass effect or shift is evident. In the posterior fossa, the brainstem, cerebellum and fourth ventricle are unremarkable. The bony calvarium is intact. Mucosal thickening is evident within the left sphenoid sinus. No air-fluid levels are evident. The mastoid air cells are well pneumatized and clear. The orbits are aphakic. CT/CT head/brain wo IV con IMPRESSION: 1. Age-related involutional changes and microvascular disease. Old right lacunar infarct. 2. No acute hemorrhage, mass effect, shift or acute intracranial pathology.
[2023-08-17 13:59] VITALS: BP 128/60; PULSE 78; RESP 18; TEMP 36.7; O2SAT 99
[2023-08-17 14:16] VITALS: BMI 28.9
--- NOTE | 2023-08-17 14:33 | PHA.MEDREC ---
Pharmacy Consult ? Medication Reconciliation Pharmacy has completed the medication reconciliation. Patient is direct admit from Psych. Utilized Dr. Ferguson's discharge summary.
--- NOTE | 2023-08-17 15:23 | PC.NURSE ---
Direct admission from [facility] to room 443 . Pt arrived by stretcher, transferred to bed with 1 assist , steady gait, alert and oriented x4 calm ,cooperative denied sob, no chest pain no palpitation , bus monitor applied :NSR HR 70's . LS clear , positive BS x Quad , last BM today. Skin intact , some bruises to right lower arm . IV #20 placed to lt hand. Ambulated to the bathroom with supervision
[2023-08-17] MEDS: Enoxaparin Sodium 40 MG/0.4 ML SYRINGE SUBCUT (15:38)
[2023-08-17] MEDS: 0.9 % Sodium Chloride Flush 3 ML SYRINGE IVFLUSH ×2 (15:39→22:22)
--- NOTE | 2023-08-17 15:47 | PM.IMHP ---
History of Present Illness Date of Service: 08/17/23 Attending physician on admission: Niki Quinn Chief Complaint: Palpitations Pt is a 77-year-old female with a PMH significant for?mild intermittent asthma, rheumatoid arthritis, glaucoma, and depression who was admitted to [facility] for increasing depression with SI with plans for overdosing on home medications. Yesterday patient was seen and evaluated for rapid response for abnormal EKG and elevated heart rate. Initial EKG showed supraventricular with mild, diffuse ST depressions, and repeat EKG showed sinus rhythm of wine a 6 with PACs, similar to previous [place] [facility] [place] Patient was given metoprolol 25 mg p.o.. During this time patient remained largely asymptomatic: Reports still felt flushed, but denied chest pain or pressure. No shortness of breath or difficulty breathing. This afternoon after lunch, patient had repeat episode of feeling hot, lightheaded, diaphoretic, ?spacey?, and like her was racing. EKG was taken which showed AFib with RVR 117. Patient was placed on continuous monitoring on EKG machine, and rhythm strip occasionally going in and out of what appeared to be other episodes of SVT into the 160s. Patient again denied chest pain or pressure during this time. Denies any significant past cardiac history or similar episodes. Was again given metoprolol 25 mg p.o.. Lab work yesterday showed low albumin of 2.9 and slightly low sodium of 134, otherwise grossly unremarkable. No leukocytosis. Stable H&H. No significant electrolyte abnormalities. UA negative for UTI. Tox screen negative. CXR negative for focal consolidation. Given repeat episodes of symptomatic tachycardia, patient will be brought to the hospital floor for further treatment and evaluation of intermittent SVT versus new onset AFib. Review of Systems Review of Systems: Feeling flushed, diaphoretic Palpitations Lightheaded Denies chest pain/pressure, palpitations No shortness a breath or difficulty breathing Denies fever, chills, nausea, vomiting, abdominal pain PMFSH Medical History Depression Macular degeneration Glaucoma Urinary tract infection Asthma Family History (Updated 08/18/23 @ 09:25 by Omar Gimenez MD) Father H/O heart surgery Surgical History History of hysterectomy History of total knee replacement Social History Household Members: None Housing: House Do you presently have visiting nurse or other home services: No Patient Tobacco Use Status: Never used Tobacco e-Cigarette/Vaping Use: Never Used Use of substances other than those prescribed or required for medical reasons: Yes Substance Use Type: Marijuana Substance Use Frequency: Occasionally Last Used Substance: Weeks (ago) Currently Displaying Signs/Symptoms of Drug Intoxication Withdrawal: No Have you been hit, kicked, punched, or otherwise hurt by someone within the past year? If so, by whom?: No Do you feel safe in your current relationship?: Yes Is there a partner from a previous relationship who is making you feel unsafe now?: No Are you made to feel afraid or neglected: No Advance Directives: No Advance Directives Information Provided: No Do you have a plan to hurt others: No Plan Recently lost weight without trying: Yes How much weight loss: 2-13 pounds Eating poorly because of decreased appetite: Yes Nutrition screen score: 4 Nutrition Risks: No Nutritional Risk Patient : No : No Poor oral hygiene: No service: No Meds Allergies Allergy/AdvReac Type Severity Reaction Status Date / Time etanercept [From Enbrel] Allergy Unknown Unknown Verified 08/15/23 18:23 Active Medications: Current Medications Acetaminophen (Acetaminophen 325 Mg Tablet) 650 mg PO Q6H PRN PRN Reason: Pain, Mild (Pain Scale 1-3), fever or headache Benzonatate (Benzonatate 100 Mg Capsule) 100 mg PO TID PRN PRN Reason: Cough Calcium Carbonate (Calcium Carbonate 750 Mg Tab.Chew) 750 mg PO Q4H PRN PRN Reason: Heartburn Enoxaparin Sodium (Enoxaparin Sodium 40 Mg/0.4 Ml Syringe) 40 mg SUBCUT Q24H ADWOA Last Admin: 08/17/23 15:38 Dose: 40 mg Magnesium Hydroxide (Milk Of Magnesia 30 Ml Oral.Susp) 30 ml PO DAILY PRN PRN Reason: Constipation Melatonin (Melatonin 3 Mg Tablet) 6 mg PO BEDTIME PRN PRN Reason: Insomnia Ondansetron HCl (Ondansetron Hcl 4 Mg/2 Ml Vial) 4 mg IVPUSH Q8H PRN PRN Reason: Nausea and Vomiting Sodium Chloride (0.9 % Sodium Chloride Flush 3 Ml Syringe) 3 ml IVFLUSH QSHIFT ADWOA Last Admin: 08/17/23 15:39 Dose: 3 ml Home Medications ?Medication ?Instructions ?Recorded ?Confirmed ?Last Taken ?Type pantoprazole 40 mg tablet,delayed 40 mg PO DAILY@0630 08/17/23 08/17/23 Unknown History release Physical Exam Vital Signs and Narrative: Vital Signs: Last Vital Signs Temp 98.0 F 08/17/23 13:59 Pulse 78 08/17/23 13:59 Resp 18 08/17/23 13:59 BP 128/60 08/17/23 13:59 Pulse Ox 99 08/17/23 13:59 O2 Del Method Room Air 08/17/23 13:59 BMI result Body Mass Index 28.9 Constitutional: Alert, in no acute distress. Mental Status: Oriented to person, place and time. Eyes: Pupils are equal, round, and reactive to light. Ear, Nose, and Throat: Oropharynx clear, mucous membranes moist. Ears and nose without deformities. Trachea midline. Respiratory: Clear to auscultation bilaterally. No wheezing, rales, or rhonchi. Cardiovascular: Regularly irregular rhythm. No murmurs, rubs, or gallops. Gastrointestinal: Abdomen soft, non-tender, non-distended. Normal bowel sounds. Neurologic: Cranial nerves II-XII are grossly intact bilaterally. No focal neurological deficits. Moves all extremities spontaneously. Skin: Warm, dry. Musculoskeletal: No cyanosis or clubbing. Extremities: No edema. Psychiatric: Normal mood and affect. Results Labs 08/18/23 06:04 08/18/23 06:04 Assessment and Plan (1) Tachycardia: Status: Acute Plan Pt is a 77-year-old female with a PMH significant for?mild intermittent asthma, rheumatoid arthritis, glaucoma, and depression who was admitted to [facility] psych for increasing depression with SI with plans for overdosing on home medications. Yesterday patient was seen and evaluated for rapid response for abnormal EKG and elevated heart rate. Today patient had repeat episode with EKG concerning for SVT versus AFib. Patient will be brought to medical floor for treatment and further evaluation of symptomatic tachycardia concerning for SVT versus new onset AFib with RVR. Symptomatic tachycardia Patient with runs of tachycardia into the 170s yesterday and today EKGs showing SVT in 160s and AFib with RVR Pt received metoprolol 25 mg p.o. SVT initially broken by patient bearing down Cardiology consult Monitor on telemetry Question of UTI UA yesterday positive for leukocyte esterase, wbc's 11-20, epithelial cells 3-5, and trace bacteria Patient denies polyuria or dysuria Patient was prophylactically started on cefuroxime 250 b.i.d. x5 days UA cultures showed mixed bacterial angie characteristic of urogenital contamination Will discontinue antibiotics at this time Glaucoma Continue latanoprost Rheumatoid arthritis Continue leflunomide GERD Continue PPI Full Code Attending:? DVT Prophylaxis: Lovenox Pt will require a hospitalization of at least two nights for treatment of?symptomatic tachycardia concerning for SVT versus new onset AFib with RVR. Quality Stroke Does the patient have a stroke diagnosis?: No VTE Prior VTE?: No VTE Risk Level:: Medical - moderate - high VTE Device Contraindication: Treatment Not Indicated VTE Drug Contraindication: N/A - Med Ordered
[2023-08-17 16:00] VITALS: BP 110/61; PULSE 68; RESP 18; TEMP 36.2; O2SAT 96
[2023-08-17 20:00] VITALS: BP 129/60; PULSE 74; RESP 18; TEMP 37.1; O2SAT 96
[2023-08-17 23:22] VITALS: BP 136/74; PULSE 80; RESP 18; TEMP 37.3; O2SAT 98
--- NOTE | 2023-08-18 | ECG_ITS ---
Test Reason : cp Blood Pressure : / mmHG Vent. Rate : 103 BPM Atrial Rate : 103 BPM P-R Int : 144 ms QRS Dur : 062 ms QT Int : 326 ms P-R-T Axes : 043 028 057 degrees QTc Int : 427 ms Sinus tachycardia with Premature atrial complexes with Aberrant conduction Otherwise normal ECG When compared with ECG of 17-AUG-2023 13:01, Sinus rhythm has replaced Atrial fibrillation Vent. rate has decreased BY [address] no longer depressed in Anterior leads Nonspecific T wave abnormality no longer evident in Inferior leads Referred By: Niki Quinn Electronically Signed By:GUY ABBOTT
[2023-08-18 03:50] VITALS: BP 159/83; PULSE 98; RESP 18; TEMP 36.4; O2SAT 94
[2023-08-18 06:44] LABS: Hematocrit 33.3 % (37.0-47.0); Hemoglobin 10.9 g/dl (12.0-16.0); Mean Corpuscular HGB Conc 32.7 g/dl (31.0-35.0); Mean Corpuscular Hemoglobin 29.9 pg (27.0-33.0); Mean Corpuscular Volume 91.2 fL (80.0-98.0); Mean Platelet Volume 11.2 fL (9.4-12.3); Platelet Count 156 X10*3/uL (160-400); Red Blood Count 3.65 X10*6/uL (4.20-5.50); Red Cell Distribution Width 16.5 % (11.0-16.0); White Blood Count 6.8 X10*3/uL (4.8-10.8)
[2023-08-18 06:58] LABS: Anion Gap 12 (12-20); Blood Urea Nitrogen 12 mg/dL (9-16); Calcium 8.3 mg/dL (8.4-10.2); Carbon Dioxide 23 mmol/L (22-29); Chloride 106 mmol/L (96-108); Creatinine Clr Calc Pharmacy 58.3; Estimated Glomerular Filt Rate > 60; Glucose Random 119 mg/dL (60-115); Potassium 3.9 mmol/L (3.3-5.1); Sodium 137 mmol/L (135-145)
--- NOTE | 2023-08-18 07:00 | CA_ITS ---
Transthoracic Echocardiogram Patient (Last, First, Middle): Fatmata Talbert, Gender: Female Date of : 1945 Age: 77 Procedure Date: 08/18/2023 Procedure Type: Transthoracic E[place]ogram [place] [facility] [place]: 149.86 cm Weight: 64.41 kg BSA: 1.59 m2 Heart Rate: bpm BP: 140 / 79 mmHg Breading Machine Tender: Referring MD: Omar Gimenez MD Symptoms: SVT Study Quality: Adequate ECG Rhythm: Sinus Conclusions: - The left ventricular systolic function is normal. The calculated ejection fraction is 64% by biplane method. - No obvious valvular pathology seen on this study. Findings Left Ventricle Normal left ventricular cavity size. There is normal left ventricular wall thickness. The left ventricular systolic function is normal. The calculated ejection fraction is 64% by biplane method. There is no evidence of regional wall motion abnormalities. Evidence suggests grade I (mild) diastolic dysfunction. Right Ventricle Normal right ventricular cavity size and systolic function. Atria Both atria are normal in size. Aortic Valve There is a normal trileaflet aortic valve. There is no aortic valve stenosis. There is no aortic valve regurgitation. Mitral Valve The mitral valve appears normal. There is trace mitral valve regurgitation. There is no mitral valve stenosis. Pulmonic Valve The pulmonic valve is likely normal. Tricuspid Valve There is mild tricuspid valve regurgitation. There is no evidence of pulmonary hypertension. Great Vessels The asc aorta is normal in size. Venous The inferior vena cava is normal in size and collapses greater than 50% with inspiration. Pericardium/Pleural There is no evidence of pericardial effusion. Prior Study Comparison No prior study available for comparison. Recommendations, Care & Conclusions No obvious valvular pathology seen on this study. Measurements 2D Linear Measurements IVSd: 0.92 0.6-0.9/0.6-1.0 cm LVIDd: 3.84 3.9-5.3/4.2-5.9 cm LVIDd Index: 2.42 2.4-3.2/2.2-3.1 cm/m2 LVIDs: 2.56 2.0-3.6 cm LVPWd: 0.92 0.7-1.1 cm LA Diam: 2.50 2.7-3.8/3.0-4.0 cm LAIDs Index: 1.57 1.5-2.3 cm/m2 LV Mass: 132.10 67-162/88-224 g LV Mass Index: 83.08 43-95/49-115 g/m2 LVOT Diam: 2.00 3.0+(-)1.3 cm 2D Systolic Function EF 4C: 54.70 >55% EF 2C: 71.20 >55% EF BiP: 64.10 >55% Mitral Valve MV Pk E: 0.75 MV PK A: 1.20 MV Decel Time: 144.00 E/A: 0.60 E'Lateral: 9.79 E'Medial: 8.49 E/E' Med: 8.90 E/E' Lat: 7.70 PHT: 42.00 MVA PHT: 5.24 Decel [place]: 5.23 Aortic Valve AoV Pk Ar: 1.90 AoV Mn Ar: 1.14 AoV VTI: 0.39 AoV Pk Grad: 14.00 Aov Mn Grad: 7.00 [place] Cont.VTI: 1.95 LVOT LVOT Pk Ar: 1.10 LVOT Mn Ar: 0.74 LVOT VTI: 0.24 LVOT Pk Grad: 5.00 LVOT Mn Grad: 3.00 LVOT Diam: 2.00 LVOT Area: 3.14 Diastolic Function MV Pk E: 0.75 MV Pk A: 1.20 E/A: 0.60 E'Medial: 8.49 E/E' Med: 8.90 E' Laterial: 9.79 E/E' Lat: 7.70 Right Ventricle TAPSE (mm): 18.40 TVS' Ar: 13.30 Tricuspid Valve TR Pk Ar: 2.42 TR Pk Grad: 23.00 Great Vessels Aorta Sinus of Valsalva: 3.20 2.0-3.5 cm Ao Asc: 3.20 2.1-3.4 cm Pulmonary Valve PV Pk Ar: 1.15 Peak PV Grad: 5.00 Updated in Other Vendor System with Status of Final Omar Gimenez MD electronically signed on 08/18/2023 4:43:49 PM with status of Final
[2023-08-18 08:00] VITALS: BP 140/79; PULSE 98; RESP 18; TEMP 36.9; O2SAT 96
--- NOTE | 2023-08-18 08:44 | MHC.CM.PN ---
CM met with Patient at bedside and addressed IMM with her, providing Patient with the originals and a copy has been placed on the chart. [place] [facility] [place] [facility] but her goal is not to return to [facility]; she wants to go home. 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 Home/self care pending Care Team Consult is the Patient's goal; CM has initiated and will follow for dc planning.PCP is Dr. Noe Dejesus and HCP Iban/Nikki Sexton.
[2023-08-18] MEDS: 0.9 % Sodium Chloride Flush 3 ML SYRINGE IVFLUSH ×3 (08:47→20:36)
[2023-08-18] MEDS: Metoprolol Tartrate 12.5 MG HALFTAB PO (08:47)
--- NOTE | 2023-08-18 09:23 | PM.CNCAR ---
History of Present Illness History of Present Illness Date of Service: 08/18/23 Chief complaint: SVT Narrative: This is a cardiology consultation regarding tachycardia. Patient with a history of asthma, rheumatoid arthritis, glaucoma depression. It seems that she was admitted to [facility] for depression with suicidal ideation with plans for overdosing on home medications. In this context, she was seen due to abnormal EKG and elevated heart rate by the hospitalist service. Patient herself does not have any clear-cut cardiac symptoms like angina or shortness of breath or anything else. There is question of SVT versus atrial fibrillation and it seems that she got beta-blockers. Subsequently, she has been transferred to telemetry for further care. Otherwise, patient denies any history of coronary artery disease or myocardial infarction or cardiomyopathy or in fact any other cardiac concerns in the past. Currently, she states she feels fine. Denies any cardiac symptoms. Review of Systems Review of Systems: Yes all other systems are reviewed and are negative Constitutional: Constitutional: Reports as per HPI and Reports no additional constitutional complaints Eyes: Eyes: Reports as per HPI and Denies no additional eye complaints ENT: Denies system reviewed and no additional complaints, except as documented and Reports as per HPI Cardiovascular: Cardiovascular: Reports as per HPI, Reports no additional cardiovascular complaints, Denies acrocyanosis, Denies cool extremities, Denies chest pain, Denies leg edema, Denies lightheadedness, Denies palpitations and Denies dyspnea Respiratory: Respiratory: Reports as per HPI, Denies no additional respiratory complaints and Denies dyspnea Gastrointestinal: Gastrointestinal: Reports as per HPI and Denies no additional gastrointestinal complaints Genitourinary: Genitourinary: Reports as per HPI Musculoskeletal: Musculoskeletal: Reports no additional musculoskeletal complaints and Reports as per HPI Integumentary/Breasts: Skin/Breast: Reports system reviewed and no additional complaints, except as docu Neurologic: Reports system reviewed and no additional complaints, except as documented and Reports as per HPI Psychiatric: Psychiatric: Reports no additional psychiatric complaints and Reports as per HPI Endocrine: Endocrine: Reports no additional endocrine complaints, Reports as per HPI and Denies palpitations Hematologic/Lymphatic: Hematologic/Lymphatic: Reports no additional hematologic/lymphatic complaints and Reports as per HPI Allergic/Immunologic: Allergic/Immunologic: Reports no additional allergic/immunologic complaints and Reports as per HPI [facility] Past Medical History Medical History Depression Macular degeneration Glaucoma Urinary tract infection Asthma Family History Family History (Updated 08/18/23 @ 09:25 by Omar Gimenez MD) Father H/O heart surgery Surgical History Surgical History History of hysterectomy History of total knee replacement Social History Social History Household Members: None Housing: House Do you presently have visiting nurse or other home services: No Patient Tobacco Use Status: Never used Tobacco e-Cigarette/Vaping Use: Never Used Use of substances other than those prescribed or required for medical reasons: Yes Substance Use Type: Marijuana Substance Use Frequency: Occasionally Last Used Substance: Weeks (ago) Currently Displaying Signs/Symptoms of Drug Intoxication Withdrawal: No Have you been hit, kicked, punched, or otherwise hurt by someone within the past year? If so, by whom?: No Do you feel safe in your current relationship?: Yes Is there a partner from a previous relationship who is making you feel unsafe now?: No Are you made to feel afraid or neglected: No Advance Directives: No Advance Directives Information Provided: No Do you have a plan to hurt others: No Plan Recently lost weight without trying: Yes How much weight loss: 2-13 pounds Eating poorly because of decreased appetite: Yes Nutrition screen score: 4 Nutrition Risks: No Nutritional Risk Patient : No : No Poor oral hygiene: No service: No Meds Allergies Allergy/AdvReac Type Severity Reaction Status Date / Time etanercept [From Enbrel] Allergy Unknown Unknown Verified 08/15/23 18:23 Active Medications: Current Medications Acetaminophen (Acetaminophen 325 Mg Tablet) 650 mg PO Q6H PRN PRN Reason: Pain, Mild (Pain Scale 1-3), fever or headache Benzonatate (Benzonatate 100 Mg Capsule) 100 mg PO TID PRN PRN Reason: Cough Calcium Carbonate (Calcium Carbonate 750 Mg Tab.Chew) 750 mg PO Q4H PRN PRN Reason: Heartburn Enoxaparin Sodium (Enoxaparin Sodium 40 Mg/0.4 Ml Syringe) 40 mg SUBCUT Q24H ADWOA Last Admin: 08/17/23 15:38 Dose: 40 mg Magnesium Hydroxide (Milk Of Magnesia 30 Ml Oral.Susp) 30 ml PO DAILY PRN PRN Reason: Constipation Melatonin (Melatonin 3 Mg Tablet) 6 mg PO BEDTIME PRN PRN Reason: Insomnia Metoprolol Tartrate (Metoprolol Tartrate 12.5 Mg Halftab) 12.5 mg PO BID [facility]; Protocol Last Admin: 08/18/23 08:47 Dose: 12.5 mg Ondansetron HCl (Ondansetron Hcl 4 Mg/2 Ml Vial) 4 mg IVPUSH Q8H PRN PRN Reason: Nausea and Vomiting Sodium Chloride (0.9 % Sodium Chloride Flush 3 Ml Syringe) 3 ml IVFLUSH QSHIFT [facility] Last Admin: 08/18/23 08:47 Dose: 3 ml Home Medications ?Medication ?Instructions ?Recorded ?Confirmed ?Last Taken ?Type pantoprazole 40 mg tablet,delayed 40 mg PO DAILY@0630 08/17/23 08/17/23 Unknown History release Physical Exam Vital Signs: Vital Signs: Last Vital Signs Temp 98.4 F 08/18/23 08:00 Pulse 98 08/18/23 08:00 Resp 18 08/18/23 08:00 BP 140/79 H 08/18/23 08:00 Pulse Ox 96 08/18/23 08:00 O2 Del Method Room Air 08/18/23 08:00 BMI result Body Mass Index 28.9 Const: General: comfortable and no acute distress Orientation/consciousness: patient oriented x3 HEENT: Other: Unremarkable Head: Yes normal to inspection Neck: Neck: Yes normal visual inspection Chest: Chest palpation & inspection: normal inspection of the chest Resp: Auscultation: clear to auscultation bilaterally Cardio: Palpation: normal PMI Heart sounds: S1 normal heart sound present, S2 normal heart sound present, no gallops, no murmurs and no rubs GI: Palpation (GI): Soft to palpation Back/Spine/Pelvis: Other: unremarkable Skin: General skin exam: no rashes or lesions noted Neuro: General: patient oriented x3 Extrem: General: Yes normal to inspection Psych: Mental Status: mental status grossly normal Objective Labs and Meds 08/18/23 06:04 08/18/23 06:04 Lab results: Laboratory Results - last 24 hr 08/18/23 06:04 WBC 6.8 RBC 3.65 L Hgb 10.9 L Hct 33.3 L MCV 91.2 MCH 29.9 MCHC 32.7 RDW 16.5 H Plt Count 156 L D MPV 11.2 Absolute Nucleated RBC 0.000 Nucleated RBC % (auto) 0.0 Sodium 137 Potassium 3.9 Chloride 106 Carbon Dioxide 23 Anion Gap 12 BUN 12 Creatinine 0.64 Estim Creat Clear Calc 58.3 Estimated GFR > 60 Random Glucose 119 H Calcium 8.3 L ECG Interpretation: EKGs reviewed. Initial EKG suggestive of possibly supraventricular tachycardia at a rate of 171/Min with nonspecific diffuse ST-T depression. Repeat EKG is also somewhat similar. Do not believe it is atrial fibrillation as reported. Last EKG shows sinus rhythm with PACs/aberrant conduction. Assessment and Plan (1) SVT (supraventricular tachycardia): Status: Acute Plan EKG as well as telemetry suggestive of short runs of supraventricular tachycardia. Less likely other atrial arrhythmias. Clinically, she has got absolutely no symptoms. Can take metoprolol tartrate 50 mg b.i.d.. Check echocardiogram. Check troponins. We will follow up with you. Procedures Date of Service Date of Service: 08/18/23
--- NOTE | 2023-08-18 10:20 | MHC.CM.PN ---
Per ROUNDS discussion, Patient is still having episodes of Tachycardia and is not yet medically cleared for dc.CM will follow.
[2023-08-18] MEDS: Metoprolol Tartrate 50 MG TABLET PO ×2 (10:31→20:35)
[2023-08-18 10:52] LABS: Troponin-I High Sensitivity 9.9 ng/L (<3.5-17.0)
[2023-08-18 11:33] VITALS: BP 128/61; PULSE 68; RESP 18; TEMP 36.9; O2SAT 96
--- NOTE | 2023-08-18 14:17 | P.PNIM_ITS ---
Subjective Subjective Date of Service: 08/18/23 Interval History: seen and evaluated this morning HR better controlled but has episodes of SVT no complaints Review of Systems Review of Systems: Yes all other systems are reviewed and are negative Physical Exam 2 Vital Signs: Vital Signs: Last Vital Signs Temp 98.4 F 08/18/23 11:33 Pulse 68 08/18/23 11:33 Resp 18 08/18/23 11:33 BP 128/61 08/18/23 11:33 Pulse Ox 96 08/18/23 11:33 O2 Del Method Room Air 08/18/23 11:33 BMI result Body Mass Index 28.9 Const: Other: Constitutional : Awake, interactive, not in distress Neck : Normal inspection, Supple Cardiovascular : regularly irregular , no JVP, no lower extremity edema Respiratory : good bilateral air entry, no crackles, wheezes or rhonchi Gastrointestinal: soft, lax, Normal bowel sounds, Non tender Skin : Warm, Dry Neurological : Alert & oriented x3, No focal deficit Objective Data Active Medications Acetaminophen (Acetaminophen 325 Mg Tablet) 650 mg PO Q6H PRN PRN Reason: Pain, Mild (Pain Scale 1-3), fever or headache Benzonatate (Benzonatate 100 Mg Capsule) 100 mg PO TID PRN PRN Reason: Cough Calcium Carbonate (Calcium Carbonate 750 Mg Tab.Chew) 750 mg PO Q4H PRN PRN Reason: Heartburn Enoxaparin Sodium (Enoxaparin Sodium 40 Mg/0.4 Ml Syringe) 40 mg SUBCUT Q24H [facility] Last Admin: 08/17/23 15:38 Dose: 40 mg Documented By: BEREKET Magnesium Hydroxide (Milk Of Magnesia 30 Ml Oral.Susp) 30 ml PO DAILY PRN PRN Reason: Constipation Melatonin (Melatonin 3 Mg Tablet) 6 mg PO BEDTIME PRN PRN Reason: Insomnia Metoprolol Tartrate (Metoprolol Tartrate 50 Mg Tablet) 50 mg PO BID [facility]; Protocol Last Admin: 08/18/23 10:31 Dose: 50 mg Documented By: NITHYA Ondansetron HCl (Ondansetron Hcl 4 Mg/2 Ml Vial) 4 mg IVPUSH Q8H PRN PRN Reason: Nausea and Vomiting Sodium Chloride (0.9 % Sodium Chloride Flush 3 Ml Syringe) 3 ml IVFLUSH QSHIFT [facility] Last Admin: 08/18/23 08:47 Dose: 3 ml Documented By: NITHYA Labs 08/18/23 06:04 08/18/23 06:04 Labs: Laboratory Results - last 24 hr 08/18/23 08/18/23 06:04 10:30 MCV 91.2 MCH 29.9 MCHC 32.7 RDW 16.5 H Plt Count 156 L D MPV 11.2 Absolute Nucleated RBC 0.000 Nucleated RBC % (auto) 0.0 Anion Gap 12 Estim Creat Clear Calc 58.3 Estimated GFR > 60 Random Glucose 119 H Calcium 8.3 L Troponin I High Sens 9.9 Assessment and Plan (1) SVT (supraventricular tachycardia): Status: Acute (2) Tachycardia: Status: Acute (3) Major depressive disorder: Status: Acute Plan Pt is a 77-year-old female with a PMH significant for?mild intermittent asthma, rheumatoid arthritis, glaucoma, and depression who was admitted to [facility] psych for increasing depression with SI with plans for overdosing on home medications. Yesterday patient was seen and evaluated for rapid response for abnormal EKG and elevated heart rate. Today patient had repeat episode with EKG concerning for SVT versus AFib. Patient will be brought to medical floor for treatment and further evaluation of symptomatic tachycardia concerning for SVT versus new onset AFib with RVR. recurrent symptomatic SVT less likely Afib while on Tele normal TSH Increase Metoprolol to 50 bid Echo Cardiology input appreciated Keep on Tele abnormal UA Negative cultures discontinue antibiotics at this time Major depressive disorder get psychiatry evaluation for medication advice Glaucoma Continue latanoprost Rheumatoid arthritis Continue leflunomide GERD Continue PPI Full Code DVT Prophylaxis: Lovenox Pt will require a hospitalization overnight for treatment of?symptomatic tachycardia concerning for SVT Quality Stroke Does the patient have a stroke diagnosis?: No VTE Prior VTE?: No VTE Risk Level:: Medical - moderate - high VTE Device Contraindication: Treatment Not Indicated VTE Drug Contraindication: N/A - Med Ordered
[2023-08-18] MEDS: Enoxaparin Sodium 40 MG/0.4 ML SYRINGE SUBCUT (15:58)
[2023-08-18 16:00] VITALS: BP 140/60; PULSE 77; RESP 18; TEMP 36.3; O2SAT 95
--- NOTE | 2023-08-18 16:28 | P.CNPS_ITS ---
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 She reports to this automobile and property underwriter that prior to this event, she had no depression or problematic anxiety and denies any history of such. It was only after this specific event that she started feeling depressed about her life and her PCP started her on Zoloft however she felt this made her more depressed with some accompanying SI and came to [facility] geriatric unit. Zoloft was discontinued with consideration of trying patient on Lexapro. However within the 1st 24 hours of admission the patient had an two episodes of dizziness with tachycardia, with EKG showing SVT and she was transferred to the medical floor. Psychiatry consulted to see if there is any follow-up medication recommendations. Patient resting comfortably on the medical floor; organized behavior and speech. She denies any depression or anxiety and all SI fully resolved. She does not feel any need to be on a psychiatric unit and all SI. She explained how she was not depressed at all until this recent episode of falling on the floor and had no other history of SI until after she was started on Zoloft. She reiterates that is all resolved. Shallot Packer discussed this and medication management and both automobile and property underwriter and patient agree that her depression was situational, resolved and at this time she does not need to be restarted on an antidepressant. She feels very comfortable talking to her PCP to restart an antidepressant if anything changes for her. Shallot Packer talked with Dr. Fergsuon saw patient on the geriatric unit and agrees that she is stable, able to be discharged home and does not necessarily need to be restarted on an antidepressant. Past Psychiatric History: She denies prior psychiatric admissions, she started Zoloft recently by his primary care physician. [facility] Medical History Depression Macular degeneration Glaucoma Urinary tract infection Asthma Surgical History History of hysterectomy History of total knee replacement Family History: Denies Social History: The patient is the 2nd of 3 children, her milestones were achieved at expected age and she was raised by her parents. 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 She has never been she does not have any children. Trauma History: Denies Diagnostics Vital Signs (24Hr): Vital Signs - 24 hr 08/17/23 20:00 08/17/23 23:22 08/18/23 03:50 Temperature 98.8 F 99.2 F 97.6 F Pulse Rate 74 80 98 Respiratory Rate 18 18 18 Blood Pressure 129/60 136/74 159/83 H Pulse Oximetry 96 98 94 Oxygen Delivery Method Room Air Room Air Room Air 08/18/23 08:00 08/18/23 11:33 Temperature 98.4 F 98.4 F Pulse Rate 98 68 Respiratory Rate 18 18 Blood Pressure 140/79 H 128/61 Pulse Oximetry 96 96 Oxygen Delivery Method Room Air Room Air BMI result Body Mass Index 28.9 Labs 08/18/23 06:04 08/18/23 06:04 Labs: Laboratory Results - last 48 hr 08/18/23 08/18/23 06:04 10:30 WBC 6.8 RBC 3.65 L Hgb 10.9 L Hct 33.3 L MCV 91.2 MCH 29.9 MCHC 32.7 RDW 16.5 H Plt Count 156 L D MPV 11.2 Absolute Nucleated RBC 0.000 Nucleated RBC % (auto) 0.0 Sodium 137 Potassium 3.9 Chloride 106 Carbon Dioxide 23 Anion Gap 12 BUN 12 Creatinine 0.64 Estim Creat Clear Calc 58.3 Estimated GFR > 60 Random Glucose 119 H Calcium 8.3 L Troponin I High Sens 9.9 Mental Status Exam Mental Status Exam Narrative: Pt is alert and oriented; behavior is cooperative, friendly and calm; patient is not in distress; dressed in hospital attire with unkempt hair but adequate hygiene; mood is described as good and affect congruent; eye contact appropriate; Speech is normal rate, volume and prosody and not pressured; no psychomotor agitation/retardation present; thought process is organized and goal directed; Thought content is on tx and discharge; otherwise pertinent to relevant topics and without any delusional content, paranoid ideations or grandiosity; denies any SI/HI. There is no evidence of perceptual disturbance. Patients insight and judgment appear intact. Medications Medications Current Medications Acetaminophen (Acetaminophen 325 Mg Tablet) 650 mg PO Q6H PRN PRN Reason: Pain, Mild (Pain Scale 1-3), fever or headache Benzonatate (Benzonatate 100 Mg Capsule) 100 mg PO TID PRN PRN Reason: Cough Calcium Carbonate (Calcium Carbonate 750 Mg Tab.Chew) 750 mg PO Q4H PRN PRN Reason: Heartburn Enoxaparin Sodium (Enoxaparin Sodium 40 Mg/0.4 Ml Syringe) 40 mg SUBCUT Q24H [facility] Last Admin: 08/18/23 15:58 Dose: 40 mg Magnesium Hydroxide (Milk Of Magnesia 30 Ml Oral.Susp) 30 ml PO DAILY PRN PRN Reason: Constipation Melatonin (Melatonin 3 Mg Tablet) 6 mg PO BEDTIME PRN PRN Reason: Insomnia Metoprolol Tartrate (Metoprolol Tartrate 50 Mg Tablet) 50 mg PO BID [facility]; Protocol Last Admin: 08/18/23 10:31 Dose: 50 mg Ondansetron HCl (Ondansetron Hcl 4 Mg/2 Ml Vial) 4 mg IVPUSH Q8H PRN PRN Reason: Nausea and Vomiting Sodium Chloride (0.9 % Sodium Chloride Flush 3 Ml Syringe) 3 ml IVFLUSH QSHIFT [facility] Last Admin: 08/18/23 16:00 Dose: 3 ml Allergies Allergies Allergy/AdvReac Type Severity Reaction Status Date / Time etanercept [From Enbrel] Allergy Unknown Unknown Verified 08/15/23 18:23 Assessment & Plan Assessment & Plan (1) Adjustment disorder with mixed disturbance of emotions and conduct in remission: Status: Acute Code(s): F43.25 - Adjustment disorder with mixed disturbance of emotions and conduct (2) SVT (supraventricular tachycardia): Status: Acute Code(s): I47.10 - Supraventricular tachycardia, unspecified Plan Patient is a 77-year-old female, single, with no children, 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 She reports to this automobile and property underwriter that prior to this event, she had no depression or problematic anxiety and denies any history of such. It was only after this specific event that she started feeling depressed about her life and her PCP started her on Zoloft however she felt this made her more depressed with some accompanying SI and came to [facility] geriatric unit. Zoloft was discontinued with consideration of trying patient on Lexapro. However within the 1st 24 hours of admission the patient had an two episodes of dizziness with tachycardia, with EKG showing SVT and she was transferred to the medical floor. Psychiatry consulted to see if there is any follow-up medication recommendations. Patient resting comfortably on the medical floor; organized behavior and speech. She denies any depression or anxiety and all SI fully resolved. She does not feel any need to be on a psychiatric unit and all SI. She explained how she was not depressed at all until this recent episode of falling on the floor and had no other history of SI until after she was started on Zoloft. She reiterates that is all resolved. Shallot Packer discussed this and medication management and both automobile and property underwriter and patient agree that her depression was situational, resolved and at this time she does not need to be restarted on an antidepressant. She feels very comfortable talking to her PCP to restart an antidepressant if anything changes for her. Shallot Packer talked with Dr. Ferguson saw patient on the geriatric unit and agrees that she is stable, able to be discharged home and does not necessarily need to be restarted on an antidepressant. Impression: Patient denies any current depression or SI; denies any history of depression. SI or significant anxiety, other than for 1 week following an upsetting and scary falling episode. She is logical, linear, organized in speech and behavior and appears to have good insight and judgment. Patient feels back to her regular self. Patient is psychiatrically cleared She does not need to return to the psychiatric unit Recommend no antidepressants at this time; patient will reach out to her PCP if her mood changes in any way. Total time managing care of this patient today ____ minutes. Patient educated on: diagnosis, medication risk/benefits and medical condition Informed Consent: understands
[2023-08-18 20:00] VITALS: BP 159/68; PULSE 84; RESP 26; TEMP 39.1; O2SAT 95
[2023-08-18] MEDS: Acetaminophen 325 MG TABLET 650 MG PO (20:36)
--- NOTE | 2023-08-18 20:50 | P.EN_ITS ---
Event Note Date of Service: 08/18/23 Event Note: Nurse reported fever of 102.4. Meets sepsis criteria. Ordering bolus fluids, lactic acid and blood culture. Also initiated empiric IV antibiotics. Chest x- ray and UA pending. Time Spent With Patient Time: Total time managing care of this patient today ____ minutes.
[2023-08-18] MEDS: cefTRIAXone sodium 1 GM in 0.9 % Sodium Chloride 50 ML IV (22:15)
[2023-08-18] MEDS: 0.9 % Sodium Chloride 1,000 ML 999 ML IV (22:15)
[2023-08-19] VITALS (9 sets, daily range): BP systolic 100–137; BP diastolic 55–96; PULSE 65–94; RESP 18–36; TEMP 36.2–40.5; O2SAT 93–96
[2023-08-19] MEDS: Acetaminophen 325 MG TABLET 650 MG PO ×2 (03:43→20:51)
--- NOTE | 2023-08-19 05:49 | PC.NURSE ---
Patient is alert and oriented to self only during inital assessment , her vitals obtained and her temp was elevated 102.4 and patient is warm to touch. Patient was then given tylenol for fever and MD made aware . Orders for bolus of fluids , ABX, CXR and labs placed. Patient was also noted to be progressively weaker and needing more assistance with transfers from the bed to the commode. A cold wash cloth was placed over the patient forehead and tylenol was effective for the fever. Around 0400 patient started to shiver and shake stating that she is cold , RN administered another dose of tylenol and results are pending. Patient is also noted to have urgency and frequency with urination jumping out of bed to use the commode multiple times in the night with no success. UA is currently attempted to be taken. MD made aware and bladder scan is under way.
[2023-08-19] MEDS: Metoprolol Tartrate 50 MG TABLET PO ×2 (07:35→20:51)
[2023-08-19] MEDS: 0.9 % Sodium Chloride Flush 3 ML SYRINGE IVFLUSH ×3 (07:38→23:58)
--- NOTE | 2023-08-19 10:25 | PM.PNCARD ---
Subjective Subjective Date of Service: 08/19/23 Interval history: Patient states she feels fine. No clear-cut cardiac complaints. Review of Systems Review of Systems Yes all other systems are reviewed and are negative Constitutional: Reports as per HPI and Reports no additional constitutional complaints Eyes: Reports as per HPI and Denies no additional eye complaints Denies system reviewed and no additional complaints, except as documented and Reports as per HPI Cardiovascular: Reports as per HPI, Reports no additional cardiovascular complaints, Denies acrocyanosis, Denies cool extremities, Denies chest pain, Denies leg edema, Denies lightheadedness, Denies palpitations and Denies dyspnea Respiratory: Reports as per HPI, Denies no additional respiratory complaints and Denies dyspnea Gastrointestinal: Reports as per HPI and Denies no additional gastrointestinal complaints Genitourinary: Reports as per HPI Musculoskeletal: Reports no additional musculoskeletal complaints and Reports as per HPI Skin/Breast: Reports system reviewed and no additional complaints, except as docu Reports system reviewed and no additional complaints, except as documented and Reports as per HPI Psychiatric: Reports no additional psychiatric complaints and Reports as per HPI Endocrine: Reports no additional endocrine complaints, Reports as per HPI and Denies palpitations Hematologic/Lymphatic: Reports no additional hematologic/lymphatic complaints and Reports as per HPI Allergic/Immunologic: Reports no additional allergic/immunologic complaints and Reports as per HPI Physical Exam Vital Signs: Last Vital Signs Temp 97.1 F 08/19/23 07:35 Pulse 81 08/19/23 07:35 Resp 18 08/19/23 07:35 BP 117/56 L 08/19/23 07:35 Pulse Ox 96 08/19/23 07:35 O2 Del Method Room Air 08/19/23 07:35 BMI result Body Mass Index 28.9 Const General: comfortable and no acute distress Orientation/consciousness: patient oriented x3 HEENT Other: Unremarkable Head: Yes normal to inspection Neck Neck: Yes normal visual inspection Chest Chest palpation & inspection: normal inspection of the chest Resp Auscultation: clear to auscultation bilaterally Cardio Palpation: normal PMI Heart sounds: S1 normal heart sound present, S2 normal heart sound present, no gallops, no murmurs and no rubs GI Palpation (GI): Soft to palpation Back/Spine/Pelvis Other: unremarkable Skin General skin exam: no rashes or lesions noted Neuro General: patient oriented x3 Extrem General: Yes normal to inspection Psych Mental Status: mental status grossly normal Objective Labs and Meds 08/18/23 06:04 08/18/23 06:04 Lab results: Laboratory Results - last 24 hr 08/18/23 08/18/23 10:30 21:08 Lactic Acid 1.0 Troponin I High Sens 9.9 Imaging Radiologist's impression: Impressions Chest X-Ray 08/18/23 21:17 IMPRESSION: Hypoexpanded but otherwise no evidence of acute disease. Progress Note: A&P Assessment and plan (1) SVT (supraventricular tachycardia): Status: Acute Plan EKG as well as telemetry suggestive of short runs of supraventricular tachycardia. Less likely other atrial arrhythmias. Started on metoprolol and it seems much better. Nothing over the last 24 hours. Echocardiogram with LVEF of 64%. No wall motion abnormalities and otherwise unremarkable. At this time, continue beta-blockers. We will arrange outpatient follow-up. Total time spent including review of data, counseling, documentation, coordination of care-[address] Quinn. Time Spent With Patient Time: Total time managing care of this patient today ____ minutes. Progress Note: Quality Stroke Does the patient have a stroke diagnosis?: No Procedures Date of Service Date of Service: 08/19/23
[2023-08-19 12:30] LABS: Appearance Urine Clear; Color Urine Dark Yellow; Glucose Urine UA Negative (Negative); Leukocyte Esterase Urine Trace (Negative); Nitrite Urine Negative (Negative); PH 6.5 (5.0-9.0); UMIC TRIGGER UACC YES; Urine Blood Negative (Negative); Urine Ketones Trace mg/dL (Negative); Urine Protein 30 (1+) mg/dL (Neg-Trace)
[2023-08-19 12:40] LABS: Bacteria Urine 1+ (None Seen); Hyaline Casts Urine 0-2 /LPF (0-2); RBC Urine 0-2 /HPF (0-2); Squamous Epithelial Cell Urine 0-2 /HPF (0-2); WBC Urine 0-5 /HPF (0-5)
[2023-08-19] MEDS: Enoxaparin Sodium 40 MG/0.4 ML SYRINGE SUBCUT (14:24)
--- NOTE | 2023-08-19 15:04 | HO.PM.IMPN ---
Subjective Subjective Date of Service: 08/19/23 Interval History: seen and evaluated this morning HR better controlled Had fever of 102 overnight no complaints Review of Systems Review of Systems: Yes all other systems are reviewed and are negative Physical Exam Vital Signs: Vital Signs: Last Vital Signs Temp 98.2 F 08/19/23 11:23 Pulse 65 08/19/23 11:23 Resp 18 08/19/23 11:23 BP 108/57 L 08/19/23 11:23 Pulse Ox 96 08/19/23 11:23 O2 Del Method Room Air 08/19/23 11:23 BMI result Body Mass Index 28.9 Const: Other: Constitutional : Awake, interactive, not in distress Neck : Normal inspection, Supple Cardiovascular : regularly irregular , no JVP, no lower extremity edema Respiratory : good bilateral air entry, no crackles, wheezes or rhonchi Gastrointestinal: soft, lax, Normal bowel sounds, Non tender Skin : Warm, Dry Neurological : Alert & oriented x3, No focal deficit Objective Data Active Medications Acetaminophen (Acetaminophen 325 Mg Tablet) 650 mg PO Q6H PRN PRN Reason: Pain, Mild (Pain Scale 1-3), fever or headache Last Admin: 08/19/23 03:43 Dose: 650 mg Documented By: JAS Benzonatate (Benzonatate 100 Mg Capsule) 100 mg PO TID PRN PRN Reason: Cough Calcium Carbonate (Calcium Carbonate 750 Mg Tab.Chew) 750 mg PO Q4H PRN PRN Reason: Heartburn Enoxaparin Sodium (Enoxaparin Sodium 40 Mg/0.4 Ml Syringe) 40 mg SUBCUT Q24H [facility] Last Admin: 08/19/23 14:24 Dose: 40 mg Documented By: NICO Ceftriaxone Sodium 1 gm/ (Sodium Chloride) 50 mls @ 100 mls/hr IV Q24H [facility] Last Infusion: 08/19/23 01:22 Dose: Infused Documented By: JAS Magnesium Hydroxide (Milk Of Magnesia 30 Ml Oral.Susp) 30 ml PO DAILY PRN PRN Reason: Constipation Melatonin (Melatonin 3 Mg Tablet) 6 mg PO BEDTIME PRN PRN Reason: Insomnia Metoprolol Tartrate (Metoprolol Tartrate 50 Mg Tablet) 50 mg PO BID [facility]; Protocol Last Admin: 08/19/23 07:35 Dose: 50 mg Documented By: NICO Ondansetron HCl (Ondansetron Hcl 4 Mg/2 Ml Vial) 4 mg IVPUSH Q8H PRN PRN Reason: Nausea and Vomiting Sodium Chloride (0.9 % Sodium Chloride Flush 3 Ml Syringe) [facility] Last Admin: 08/19/23 07:38 Dose: 3 ml Documented By: NICO Labs 08/18/23 06:04 08/18/23 06:04 Labs: Laboratory Results - last 24 hr 08/18/23 08/19/23 21:08 12:16 Lactic Acid 1.0 Urine Color Dark Yellow Urine Appearance Clear Urine pH 6.5 Ur Specific [place] 1.020 Urine Protein 30 (1+) H Urine Glucose (UA) Negative Urine Ketones Trace Urine Blood Negative Urine Nitrite Negative Ur Leukocyte Esterase Trace H Urine RBC 0-2 Urine WBC 0-5 Ur Squamous Epith Cells 0-2 Urine Bacteria 1+ Hyaline Casts 0-2 Assessment and Plan (1) Adjustment disorder with mixed disturbance of emotions and conduct in remission: Status: Acute (2) SVT (supraventricular tachycardia): Status: Acute (3) SIRS (systemic inflammatory response syndrome): Status: Acute Plan Pt is a 77-year-old female with a PMH significant for?mild intermittent asthma, rheumatoid arthritis, glaucoma, and depression who was admitted to [facility] psych for increasing depression with SI with plans for overdosing on home medications. Yesterday patient was seen and evaluated for rapid response for abnormal EKG and elevated heart rate. Today patient had repeat episode with EKG concerning for SVT versus AFib. Patient will be brought to medical floor for treatment and further evaluation of symptomatic tachycardia concerning for SVT versus new onset AFib with RVR. SIRS No clear source of infection, could be acute urine infection or viral CXR negative unable to provide a sample prior to IV Abx administration Continue Ceftriaxone pending final cultures recurrent symptomatic SVT less likely Afib while on Tele normal TSH Increase Metoprolol to 50 bid Echo Cardiology input appreciated Keep on Tele abnormal UA, on admission Negative cultures discontinue antibiotics at this time Major depressive disorder psychiatry input appreciated, OP follow up, no need for readmission Glaucoma Continue latanoprost Rheumatoid arthritis Continue leflunomide GERD Continue PPI Full Code DVT Prophylaxis: Lovenox Pt will require a hospitalization overnight for treatment of?symptomatic tachycardia concerning for SVT Quality Stroke Does the patient have a stroke diagnosis?: No VTE Prior VTE?: No VTE Risk Level:: Medical - moderate - high VTE Device Contraindication: Treatment Not Indicated VTE Drug Contraindication: N/A - Med Ordered
[2023-08-19] MEDS: cefTRIAXone sodium 1 GM in 0.9 % Sodium Chloride 50 ML IV (20:51)
[2023-08-20] VITALS (10 sets, daily range): BP systolic 110–131; BP diastolic 57–80; PULSE 69–87; RESP 18–20; TEMP 37–38.2; O2SAT 95–96
[2023-08-20] MEDS: Acetaminophen 325 MG TABLET 650 MG PO ×2 (04:03→13:35)
[2023-08-20] MEDS: Metoprolol Tartrate 50 MG TABLET PO ×2 (08:35→19:56)
[2023-08-20] MEDS: 0.9 % Sodium Chloride Flush 3 ML SYRINGE IVFLUSH ×3 (08:39→23:45)
--- NOTE | 2023-08-20 10:11 | MHC.CM.PN ---
Per ROUNDS discussion, Patient is spiking fevers and is not yet medically cleared for dc ; Per MD, home is the goal (cleared by Psych)and CM will continue to follow.
--- NOTE | 2023-08-20 11:33 | HO.PM.IMPN ---
Subjective Subjective Date of Service: 08/20/23 Interval History: seen and evaluated this morning Spiking fever for the 2nd night in row, no fever recorded during the day reports mild chest congestion no complaints Review of Systems Review of Systems: Yes all other systems are reviewed and are negative Physical Exam Vital Signs: Vital Signs: Last Vital Signs Temp 98.6 F 08/20/23 11:09 Pulse 69 08/20/23 11:09 Resp 20 08/20/23 11:09 BP 122/57 L 08/20/23 11:09 Pulse Ox 95 08/20/23 11:09 O2 Del Method Room Air 08/20/23 11:09 BMI result Body Mass Index 28.9 Const: Other: Constitutional : Awake, interactive, not in distress Neck : Normal inspection, Supple Cardiovascular : regularly irregular , no JVP, no lower extremity edema Respiratory : good bilateral air entry, no crackles, wheezes or rhonchi Gastrointestinal: soft, lax, Normal bowel sounds, Non tender Skin : Warm, Dry Neurological : Alert & oriented x3, No focal deficit Objective Data Active Medications Acetaminophen (Acetaminophen 325 Mg Tablet) 650 mg PO Q6H PRN PRN Reason: Pain, Mild (Pain Scale 1-3), fever or headache Last Admin: 08/20/23 04:03 Dose: 650 mg Documented By: WEST Benzonatate (Benzonatate 100 Mg Capsule) 100 mg PO TID PRN PRN Reason: Cough Calcium Carbonate (Calcium Carbonate 750 Mg Tab.Chew) 750 mg PO Q4H PRN PRN Reason: Heartburn Enoxaparin Sodium (Enoxaparin Sodium 40 Mg/0.4 Ml Syringe) 40 mg SUBCUT Q24H [facility] Last Admin: 08/19/23 14:24 Dose: 40 mg Documented By: NICO Ceftriaxone Sodium 1 gm/ (Sodium Chloride) 50 mls @ 100 mls/hr IV Q24H [facility] Last Infusion: 08/19/23 21:24 Dose: Infused Documented By: BENITO Magnesium Hydroxide (Milk Of Magnesia 30 Ml Oral.Susp) 30 ml PO DAILY PRN PRN Reason: Constipation Melatonin (Melatonin 3 Mg Tablet) 6 mg PO BEDTIME PRN PRN Reason: Insomnia Metoprolol Tartrate (Metoprolol Tartrate 50 Mg Tablet) 50 mg PO BID [facility]; Protocol Last Admin: 08/20/23 08:35 Dose: 50 mg Documented By: MIRZA Ondansetron HCl (Ondansetron Hcl 4 Mg/2 Ml Vial) 4 mg IVPUSH Q8H PRN PRN Reason: Nausea and Vomiting Sodium Chloride (0.9 % Sodium Chloride Flush 3 Ml Syringe) [facility] Last Admin: 08/20/23 08:39 Dose: 3 ml Documented By: MIRZA Labs 08/18/23 06:04 08/18/23 06:04 Labs: Laboratory Results - last 24 hr 08/19/23 12:16 Urine Color Dark Yellow Urine Appearance Clear Urine pH 6.5 Ur Specific [place] 1.020 Urine Protein 30 (1+) H Urine Glucose (UA) Negative Urine Ketones Trace Urine Blood Negative Urine Nitrite Negative Ur Leukocyte Esterase Trace H Urine RBC 0-2 Urine WBC 0-5 Ur Squamous Epith Cells 0-2 Urine Bacteria 1+ Hyaline Casts 0-2 Microbiology Microbiology Results: Microbiology 08/18/23 21:08 Blood Culture - Preliminary Blood - Venous No growth after 24 hours. 08/18/23 21:08 Blood Culture - Preliminary Blood - Venous No growth after 24 hours. Assessment and Plan (1) SIRS (systemic inflammatory response syndrome): Status: Acute (2) Adjustment disorder with mixed disturbance of emotions and conduct in remission: Status: Acute (3) SVT (supraventricular tachycardia): Status: Acute Plan Pt is a 77-year-old female with a PMH significant for?mild intermittent asthma, rheumatoid arthritis, glaucoma, and depression who was admitted to [facility] for increasing depression with SI with plans for overdosing on home medications. Yesterday patient was seen and evaluated for rapid response for abnormal EKG and elevated heart rate. Today patient had repeat episode with EKG concerning for SVT versus AFib. Patient will be brought to medical floor for treatment and further evaluation of symptomatic tachycardia concerning for SVT versus new onset AFib with RVR. SIRS No clear source of infection, could be acute urine infection or viral CXR negative , UA was drawn 9 hours after starting Abx Continue Ceftriaxone pending final cultures check viral panel looks good, consider add 2nd antibitics if continues to have fever with negative resp panel recurrent symptomatic SVT controlled normal TSH Metoprolol to 50 bid Echo LVEF of 64%. No wall motion abnormalities Cardiology input appreciated Keep on Tele Abnormal UA on admission, with Negative cultures. discontinue antibiotics at that time Major depressive disorder psychiatry input appreciated, OP follow up w PCP, no need for readmission or antidepressant this time Glaucoma Continue latanoprost Rheumatoid arthritis Continue leflunomide GERD Continue PPI Full Code DVT Prophylaxis: Lovenox Pt will require a hospitalization overnight for treatment of?SIRS, fever pending cultures Quality Stroke Does the patient have a stroke diagnosis?: No VTE Prior VTE?: No VTE Risk Level:: Medical - moderate - high VTE Device Contraindication: Treatment Not Indicated VTE Drug Contraindication: N/A - Med Ordered
[2023-08-20 14:22] LABS: Adenovirus PCR Not Detected (Not Detect.); Bordetella parapertussis PCR Not Detected (Not Detect.); Bordetella pertussis PCR Not Detected (Not Detect.); Chlamydia pneumoniae PCR Not Detected (Not Detect.); Coronavirus 229E PCR Not Detected (Not Detect.); Coronavirus HKU1 PCR Not Detected (Not Detect.); Coronavirus NL63 PCR Not Detected (Not Detect.); Coronavirus OC43 PCR Not Detected (Not Detect.); Human metapneumovirus PCR Not Detected (Not Detect.); Influenza A PCR Not Detected (Not Detect.); Influenza B PCR Not Detected (Not Detect.); Mycoplasma pneumoniae PCR Not Detected (Not Detect.); Parainfluenza 1 PCR Not Detected (Not Detect.); Parainfluenza 2 PCR Not Detected (Not Detect.); Parainfluenza 3 PCR Not Detected (Not Detect.); Parainfluenza 4 PCR Not Detected (Not Detect.); RSV PCR Not Detected (Not Detect.); Rhino/Enterovirus PCR Not Detected (Not Detect.)
[2023-08-20 14:39] LABS: SARS-CoV-2 PCR Not Detected (Not Detect.)
[2023-08-20] MEDS: Enoxaparin Sodium 40 MG/0.4 ML SYRINGE SUBCUT (15:49)
[2023-08-20] MEDS: LORazepam 0.5 MG TABLET 0.25 MG PO (15:50)
[2023-08-20] MEDS: Doxycycline Monohydrate 100 MG CAPSULE PO ×2 (17:06→19:56)
[2023-08-20] MEDS: cefTRIAXone sodium 1 GM in 0.9 % Sodium Chloride 50 ML IV (19:57)
[2023-08-20] MEDS: Latanoprost 0.005 % Ophth Sol 2.5 ML DROPS 1 DROP EYE-BOTH (20:04)
[2023-08-21] VITALS (8 sets, daily range): BP systolic 111–142; BP diastolic 54–75; PULSE 66–89; RESP 18; TEMP 36.3–37.2; O2SAT 95–99
[2023-08-21 07:36] LABS: Hematocrit 30.4 % (37.0-47.0); Mean Corpuscular HGB Conc 32.9 g/dl (31.0-35.0); Mean Corpuscular Volume 88.1 fL (80.0-98.0); Red Blood Count 3.45 X10*6/uL (4.20-5.50); Red Cell Distribution Width 16.4 % (11.0-16.0); White Blood Count 5.4 X10*3/uL (4.8-10.8)
[2023-08-21 07:53] LABS: Anion Gap 9 (12-20); Blood Urea Nitrogen 12 mg/dL (9-16); Calcium 7.9 mg/dL (8.4-10.2); Carbon Dioxide 26 mmol/L (22-29); Chloride 106 mmol/L (96-108); Creatinine Clr Calc Pharmacy 70.4; Estimated Glomerular Filt Rate > 60; Glucose Random 95 mg/dL (60-115); Potassium 3.4 mmol/L (3.3-5.1); Sodium 138 mmol/L (135-145)
[2023-08-21 08:33] LABS: Platelet Count 42 X10*3/uL (160-400)
[2023-08-21 08:34] LABS: Mean Platelet Volume 12.4 fL (9.4-12.3)
[2023-08-21] MEDS: Metoprolol Tartrate 50 MG TABLET PO ×2 (08:58→20:29)
[2023-08-21] MEDS: Doxycycline Monohydrate 100 MG CAPSULE PO ×2 (08:58→20:29)
[2023-08-21] MEDS: 0.9 % Sodium Chloride Flush 3 ML SYRINGE IVFLUSH ×3 (08:59→20:31)
--- NOTE | 2023-08-21 09:58 | HO.PM.IMPN ---
Subjective Subjective Date of Service: 08/21/23 Interval History: And examined this morning Follow-up for fever No fever overnight, overall feeling better no cough, abdominal pain, nausea, vomiting, diarrhea Review of Systems Review of Systems: Yes all other systems are reviewed and are negative Constitutional Constitutional: Denies chills and Denies fever(s) Cardiovascular Cardiovascular: Denies chest pain, Denies palpitations and Denies dyspnea Respiratory Respiratory: Denies cough and Denies dyspnea Gastrointestinal Gastrointestinal: Denies abdominal pain, Denies nausea and Denies vomiting Endocrine Endocrine: Denies palpitations Physical Exam Vital Signs: Vital Signs: Last Vital Signs Temp 98.3 F 08/21/23 07:31 Pulse 89 08/21/23 07:31 Resp 18 08/21/23 07:31 BP 129/68 08/21/23 07:31 Pulse Ox 96 08/21/23 07:31 O2 Del Method Room Air 08/21/23 07:31 BMI result Body Mass Index 28.9 Const: General: cooperative, comfortable, no acute distress, alert and awake Nutritional Appearance: average body habitus Orientation/consciousness: patient oriented x3 Resp: Effort & Inspection: normal respiratory effort, able to speak in complete sentences, no respiratory distress and no use of accessory muscles Cardio: Rate: regular rate GI: Inspection: No distended Palpation (GI): Soft to palpation and nontender Neuro: General: patient oriented x3 and moves all extremities Objective Data Active Medications Acetaminophen (Acetaminophen 325 Mg Tablet) 650 mg PO Q6H PRN PRN Reason: Pain, Mild (Pain Scale 1-3), fever or headache Last Admin: 08/20/23 13:35 Dose: 650 mg Documented By: MIRZA Benzonatate (Benzonatate 100 Mg Capsule) 100 mg PO TID PRN PRN Reason: Cough Calcium Carbonate (Calcium Carbonate 750 Mg Tab.Chew) 750 mg PO Q4H PRN PRN Reason: Heartburn Doxycycline Monohydrate (Doxycycline Monohydrate 100 Mg Capsule) 100 mg PO BID [facility] Last Admin: 08/21/23 08:58 Dose: 100 mg Documented By: ELVIS Enoxaparin Sodium (Enoxaparin Sodium 40 Mg/0.4 Ml Syringe) 40 mg SUBCUT Q24H [facility] Last Admin: 08/20/23 15:49 Dose: 40 mg Documented By: HO.CARRAM Ceftriaxone Sodium 1 gm/ (Sodium Chloride) 50 mls @ 100 mls/hr IV Q24H [facility] Last Infusion: 08/20/23 20:28 Dose: Infused Documented By: BENITO Latanoprost (Latanoprost 0.005 % Ophth Susana 2.5 Ml Drops) 1 drop EYE-BOTH BEDTIME [facility] Last Admin: 08/20/23 20:04 Dose: 1 drop Documented By: BENITO Magnesium Hydroxide (Milk Of Magnesia 30 Ml Oral.Susp) 30 ml PO DAILY PRN PRN Reason: Constipation Melatonin (Melatonin 3 Mg Tablet) 6 mg PO BEDTIME PRN PRN Reason: Insomnia Metoprolol Tartrate (Metoprolol Tartrate 50 Mg Tablet) 50 mg PO BID [facility]; Protocol Last Admin: 08/21/23 08:58 Dose: 50 mg Documented By: ELVIS Ondansetron HCl (Ondansetron Hcl 4 Mg/2 Ml Vial) 4 mg IVPUSH Q8H PRN PRN Reason: Nausea and Vomiting Sodium Chloride (0.9 % Sodium Chloride Flush 3 Ml Syringe) 3 ml IVFLUSH QSHIFT [facility] Last Admin: 08/21/23 08:59 Dose: 3 ml Documented By: ELVIS Labs 08/21/23 10:11 08/21/23 06:29 Labs: Laboratory Results - last 24 hr 08/20/23 08/21/23 11:00 06:29 MCV 88.1 MCH 29.0 MCHC 32.9 RDW 16.4 H Plt Count 42 L D MPV 12.4 H Absolute Nucleated RBC 0.000 Nucleated RBC % (auto) 0.0 Anion Gap 9 L Estim Creat Clear Calc 70.4 Estimated GFR > 60 Random Glucose 95 Calcium 7.9 L Respiratory Panel Mims See Note Adenovirus (Rapid PCR) Not Detected B.pert (TEM-PCR) Not Detected B.parapertussis DNA PCR Not Detected C. pneumoniae DNA (PCR) Not Detected Coronavirus OC43 (PCR) Not Detected Coronavirus HKU1 (PCR) Not Detected Coronavirus 229E (PCR) Not Detected Coronavirus NL63 (PCR) Not Detected Human Metapneumovir PCR Not Detected Influenza A (RT-PCR) Not Detected Influenza B (RT-PCR) Not Detected M. pneumoniae (PCR) Not Detected Parainfluenza 1 (PCR) Not Detected Parainfluenza 2 (PCR) Not Detected Parainfluenza 3 (PCR) Not Detected Parainfluenza 4 (PCR) Not Detected RSV (PCR) Not Detected Entero/Rhino (PCR) Not Detected SARS-CoV-2 RNA (RT-PCR) Not Detected Microbiology Microbiology Results: Microbiology 08/18/23 21:08 Blood Culture - Preliminary Blood - Venous No growth after 48 hours. 08/18/23 21:08 Blood Culture - Preliminary Blood - Venous No growth after 48 hours. Assessment and Plan (1) SIRS (systemic inflammatory response syndrome): Status: Acute (2) Thrombocytopenia: Status: Acute Plan Pt is a 77-year-old female with a PMH significant for?mild intermittent asthma, rheumatoid arthritis, glaucoma, and depression who was admitted to [facility] psych for increasing depression with SI with plans for overdosing on home medications. 08/15 patient was seen and evaluated for rapid response for abnormal EKG and elevated heart rate. On day of admission patient had repeat episode with EKG concerning for SVT versus AFib. Patient will be brought to medical floor for treatment and further evaluation of symptomatic tachycardia concerning for SVT versus new onset AFib with RVR and fever . SIRS No clear source of infection, ?viral ?tick borne. no specific symptoms CXR negative, UA was drawn 9 hours after starting Abx, no urinary symptoms, urine culture negative. had been started on cefuroxime 08/15 and received 3 doses RPP negative blood cultures negative Continue doxycycline for now, will hold ceftriaxone as no clear source and possibly contributing to thrombocytopenia ID consult acute thrombocytopenia ? due to acute viral infection vs abx or less likely HIT stop lovenox repeat check manual dif hold ceftriaxone for now hematology consult will defer HIT panel to hematology as scoring low on 4Ts recurrent symptomatic SVT controlled normal TSH Metoprolol to 50 bid Echo LVEF of 64%. No wall motion abnormalities Cardiology input appreciated Keep on Tele Major depressive disorder psychiatry input appreciated, OP follow up w PCP, no need for readmission or antidepressant this time Glaucoma Continue latanoprost Rheumatoid arthritis Continue leflunomide GERD Continue PPI Full Code DVT Prophylaxis: Lovenox d/c due to thrombocytopenia, mechanical devices Requires ongoing inpatient hospitalization for fever, acute thrombocytopenia Quality Stroke Does the patient have a stroke diagnosis?: No VTE Prior VTE?: No VTE Risk Level:: Medical - moderate - high VTE Device Contraindication: Treatment Not Indicated VTE Drug Contraindication: N/A - Med Ordered
[2023-08-21 10:15] LABS: Baso%MD 0.8 %; Lymph%MD 63.8 %; Mono%MD 12.7 %; Neut%MD 21.7 %
[2023-08-21 10:40] LABS: Platelet Count 40 X10*3/uL (160-400)
[2023-08-21 10:50] LABS: Alanine Aminotransferase 24 U/L (0-31); Albumin Level 2.3 g/dL (3.5-5.0); Alkaline Phosphatase 138 U/L (39-117); Aspartate Amino Transferase 43 U/L (5-31); Bilirubin Direct 0.2 mg/dL (0.0-0.5); Bilirubin Total 0.4 mg/dL (0.0-1.0); Total Protein 4.6 g/dL (6.5-8.0)
[2023-08-21 11:00] LABS: Atypical Lymph Absolute Manual 0.2 x10*3/uL; Atypical Lymphs Percent Manual 3 % (0-6); Band Neutrophils Percent 10 % (3-5); Lymphocytes Absolute Manual 3.3 X10*3/uL (1.2-4.9); Lymphocytes Percent Manual 62 % (20-40); Monocytes Absolute Manual 0.7 X10*3/uL (0.1-1.2); Monocytes Percent Manual 13 % (2-11); Neutrophils Absolute Manual 1.2 X10*3/uL (2.0-8.3); Neutrophils Percent Manual 12 % (45-73)
[2023-08-21 11:02] LABS: Acanthocytes 2+ (3-5) /OIF; Ovalocytes 1+ (5-14) /OIF; Polychromasia 1+ (0-2) /OIF; RBC Morphology NOTED
[2023-08-21 11:03] LABS: Large Platelet PRESENT; Platelet Estimate DECREASED (NORMAL); Platelet Morphology Comment NOTED
[2023-08-21 11:04] LABS: Smudge Cells PRESENT
--- NOTE | 2023-08-21 11:47 | P.CNHO_ITS ---
Subjective - Subjective Chief complaint: Consult for: Thrombocytopenia. Patient: new to practice Consult date: 08/21/23 Requesting Physician: Pily Ferrer Primary Care Provider: Noe Dejesus MD Family Provider: Noe Dejesus MD Medical Summary: DIAGNOSIS: THROMBOCYTOPENIA. HPI - Consult Narrative Reason for consult: Consult for: Thrombocytopenia Narrative: Fatmata Talbert is a 77 year old lady, who was admitted to [facility] for increasing depression with SI with plans for overdosing on home medications. On 08/16, was seen and evaluated for rapid response for abnormal EKG and elevated heart rate. Initial EKG showed supraventricular with mild, diffuse ST depressions, and repeat EKG showed sinus rhythm of wine a 6 with PACs, similar to previous taken at [facility]. She was given metoprolol 25 mg p.o.. During this time patient remained largely asymptomatic: Reports felt flushed, but denied chest pain or pressure. No shortness of breath or difficulty breathing. That afternoon, after lunch, patient had repeat episode of feeling hot, lightheaded, diaphoretic, ?spacey?, and like her was racing. EKG was taken which showed AFib with RVR 117. Patient was placed on continuous monitoring on EKG machine, and rhythm strip occasionally going in and out of what appeared to be other episodes of SVT into the 160s. Patient again denied chest pain or pressure during this time. Denies any significant past cardiac history or similar episodes. Was again given metoprolol 25 mg p.o.. Lab work from08/16: showed low albumin of 2.9 and slightly low sodium of 134, otherwise grossly unremarkable. No leukocytosis. Stable H&H. No significant electrolyte abnormalities. UA negative for UTI. Tox screen negative. CXR negative for focal consolidation. Given repeat episodes of symptomatic tachycardia, patient will be brought to the hospital floor for further treatment and evaluation of intermittent SVT versus new onset AFib. DATABASE: 08/15. 7/1. 7/4. WBC. 10.8. 6.8. 5.4. HGB 12.4. 10.9. 10. PLT. 232. 156. 42. Diff: Segs 12, Bands 10, Lymphs 62, mon0 13, Jaffrey 1. Smudge cells noted. [facility]LY [facility], [facility] Medical History: PMH significant for: 1.?Mild intermittent asthma, 2. Rheumatoid arthritis, she is on methotrexate, Resuvo and Rinvoq. She is under the care of Dr. Perkins. 3. Glaucoma, 4. Depression. 5. Macular degeneration 6. Glaucoma 7. Urinary tract infection 8. Asthma. Surgical History: History of hysterectomy the age of 23, for endometriosis and ovarian cyst. History of total knee replacement Family History: Mom had colon cancer in her 40s. Brother had it in her 30s. She had a colonoscopy about 5 years ago at [facility]. Father H/O heart surgery Social History: She worked at a [employer] for 20 years. 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. She is single. She could not have children so did not get . Household Members: None Housing: House Do you presently have visiting nurse or other home services: No Patient Tobacco Use Status: She smoked in her 20s. Did not use Tobacco recently. e-Cigarette/Vaping Use: Never Used Use of substances other than those prescribed or required for medical reasons: Yes Substance Use Type: Marijuana with honey to help promote sleep. Substance Use Frequency: Occasionally ROS: She is feeling much better today now that she had a good night's sleep. Energy level has improved. Denies any further fever nor chills. Appetite is good. Weight has remained stable. Denies any headache no dizziness. No chest pain or trouble breathing, now. However she gets it from time to time related to her asthma. She has noticed some heartburn. No abdominal pain nausea or vomiting her bowels are regular without any gross blood in it. No dysuria or hematuria. No muscle pain. She has arthralgias related to rheumatoid arthritis. She has history of depression. She was prescribed Zoloft that caused suicidal ideation. That is why she was admitted. No focal weakness. No skin rashes or pruritus. No easy bruising nor systemic bleeding. Review of Systems - Constitutional Reports system reviewed and no additional complaints, except as documented, Reports fatigue, Reports fever(s), Reports lack of energy, Reports malaise, Reports poor appetite, Reports weight loss - Eyes Reports system reviewed and no additional complaints, except as documented - ENT Reports system reviewed and no additional complaints, except as documented - Cardiovascular Reports system reviewed and no additional complaints, except as documented - Respiratory Reports no additional respiratory complaints - Gastrointestinal Reports system reviewed and no additional complaints, except as documented - Genitourinary Reports no additional female genitourinary complaints - Musculoskeletal Reports system reviewed and no additional complaints, except as documented - Integumentary/Breasts Skin/Breast: Reports no additional skin complaints - Neurologic Reports system reviewed and no additional complaints, except as documented, Reports as per HPI - Psychiatric Reports system reviewed and no additional complaints, except as documented - Endocrine Reports no additional endocrine complaints - Hematologic/Lymphatic Reports system reviewed and no additional complaints, except as documented - Allergic/Immunologic Reports system reviewed and no additional complaints, except as documented Oncology Screenings - ECOG Performance Status ECOG Performance Status: 2 [facility] Medical History: Medical History (Last Reviewed 08/23/23 @ 14:00 by Vera Arndt MD) Asthma Depression Glaucoma Macular degeneration Urinary tract infection Functional capacity: wheelchair bound Patient : No Family History: Family History (Last Reviewed 08/23/23 @ 14:00 by Vera Arndt MD) Father H/O heart surgery Surgical History: Surgical History (Last Reviewed 08/23/23 @ 14:01 by Vera Arndt MD) History of hysterectomy History of total knee replacement Social History: Social History (Last Reviewed 08/23/23 @ 14:01 by Vera Arndt MD) Living Situation History: Household Members: None Housing: House Do you presently have visiting nurse or other home services: No Tobacco History: Patient Tobacco Use Status: Never used Tobacco e-Cigarette/Vaping Use: Never Used Substance Use History: Substance Use Type: Marijuana Occupation Assessmet: service: No Home Medications and Allergies Current Medications: Current Medications Acetaminophen (Acetaminophen 325 Mg Tablet) 650 mg PO Q6H PRN PRN Reason: Pain, Mild (Pain Scale 1-3), fever or headache Last Admin: 08/20/23 13:35 Dose: 650 mg Benzonatate (Benzonatate 100 Mg Capsule) 100 mg PO TID PRN PRN Reason: Cough Calcium Carbonate (Calcium Carbonate 750 Mg Tab.Chew) 750 mg PO Q4H PRN PRN Reason: Heartburn Doxycycline Monohydrate (Doxycycline Monohydrate 100 Mg Capsule) 100 mg PO BID [facility] Last Admin: 08/21/23 08:58 Dose: 100 mg Ceftriaxone Sodium 1 gm/ (Sodium Chloride) 50 mls @ 100 mls/hr IV Q24H [facility] Last Infusion: 08/20/23 20:28 Dose: Infused Latanoprost (Latanoprost 0.005 % Ophth Susana 2.5 Ml Drops) 1 drop EYE-BOTH BEDTIME [facility] Last Admin: 08/20/23 20:04 Dose: 1 drop Magnesium Hydroxide (Milk Of Magnesia 30 Ml Oral.Susp) 30 ml PO DAILY PRN PRN Reason: Constipation Melatonin (Melatonin 3 Mg Tablet) 6 mg PO BEDTIME PRN PRN Reason: Insomnia Metoprolol Tartrate (Metoprolol Tartrate 50 Mg Tablet) 50 mg PO BID [facility]; Protocol Last Admin: 08/21/23 08:58 Dose: 50 mg Ondansetron HCl (Ondansetron Hcl 4 Mg/2 Ml Vial) 4 mg IVPUSH Q8H PRN PRN Reason: Nausea and Vomiting Sodium Chloride (0.9 % Sodium Chloride Flush 3 Ml Syringe) 3 ml IVFLUSH QSHIFT [facility] Last Admin: 08/21/23 08:59 Dose: 3 ml Home Medications ?Medication ?Instructions ?Recorded ?Confirmed ?Type pantoprazole 40 mg tablet,delayed 40 mg PO DAILY@0630 08/17/23 08/17/23 History release Allergies Allergy/AdvReac Type Severity Reaction Status Date / Time etanercept [From Enbrel] Allergy Unknown Unknown Verified 08/15/23 18:23 Physical Exam Vital signs: Vital Signs Temp 97.8 F 08/21/23 11:10 Pulse 88 08/21/23 11:10 Resp 18 08/21/23 11:10 BP 128/60 08/21/23 11:10 Pulse Ox 97 08/21/23 11:10 O2 Del Method Room Air 08/21/23 11:10 Intake & Output 08/20/23 08/21/23 08/21/23 18:59 06:59 18:59 Intake Total 720 / 1070 350 / 1070 Output Total 300 / 300 Balance 720 / 770 50 / 770 Urine Output (Average ml/kg/hr) 0.39 Intake: Intake, Oral Amount 720 / 1020 300 / 1020 Intake, IV Amount 50 / 50 cefTRIAXone sodium 1 gm In 0.9 50 / 50 % Sodium Chloride 50 ml @ 100 mls/hr IV Q24H [facility] Rx#: [id number] Output: Output, Urine Amount 300 / 300 Other: Breakfast % Eaten 100% Lunch % Eaten 100% Eating (Feeding) Ability Independent Number of Unmeasured Voids 3 1 Number of Bowel Movements 1 Urine Bathroom Bathroom Urine Color Yellow Yellow Last Bowel Movement 08/20/23 Stool Bathroom Stool Amount Moderate Stool Color Brown Stool Consistency Formed Weight 64.8 kg - Constitutional Present: mild distress - Routine HEENT Exam Head: Present: normal inspection, normocephalic Eye: Present: normal appearance ENT: Present: mucous membranes moist - Routine Neck Exam Present: supple Hem/Onc Consult Result - Labs CBC & Chem 7: 08/23/23 06:36 08/21/23 06:29 Labs: Short CBC 08/21/23 08/21/23 Range/Units 06:29 10:11 WBC 5.4 (4.8-10.8) X10*3/uL Hgb 10.0 L (12.0-16.0) g/dl Hct 30.4 L (37.0-47.0) % Plt Count 42 L D 40 L (160-400) X10*3/uL BMP 08/21/23 06:29 Sodium 138 Potassium 3.4 Chloride 106 Carbon Dioxide 26 BUN 12 Creatinine 0.53 Calcium 7.9 L Liver Function 08/21/23 Range/Units 06:29 Total Bilirubin 0.4 (0.0-1.0) mg/dL Direct Bilirubin 0.2 (0.0-0.5) mg/dL AST 43 H (5-31) U/L ALT 24 (0-31) U/L Alkaline Phosphatase 138 H (39-117) U/L Albumin 2.3 L (3.5-5.0) g/dL Assessment and Plan Patient Active problem list reviewed?: Yes (1) Thrombocytopenia Status: Acute Assessment and plan: This is a pleasant 77-year-old lady, who was admitted to [facility], for increasing depression with SI with plans for overdosing on home medications. 08/15 patient was seen and evaluated for rapid response for abnormal EKG and elevated heart rate. She had repeat episode with EKG concerning for SVT versus AFib. So she was brought to medical floor for treatment and further evaluation of symptomatic tachycardia concerning for SVT versus new onset AFib with RVR and fever . DATABASE: 08/15. 7/1. 7/4. WBC. 10.8. 6.8. 5.4. HGB 12.4. 10.9. 10. PLT. 232. 156. 42. Diff: Segs 12, Bands 10, Lymphs 62, mon0 13, Jaffrey 1. Smudge cells noted. DIFFERENTIAL DIAGNOSIS: 1. MEDICATION RELATED: The sudden acute drop is most likely due to medications. New medicines she has been on are: Lovenox, Ceftin and ceftriaxone. HIT is a possibility. She has rheumatoid arthritis. She is on weekly methotrexate and Resuvo. She gets Rinvoq monthly. But the thing that she has received recently. 2. RELATED TO INFECTION: SIRS. At this point there is no clear source of infection, no specific symptoms. UA was drawn 9 hours after starting Abx, no urinary symptoms, urine culture negative. had been started on cefuroxime 08/15 and received 3 doses ?viral ?tick borne. CXR negative, blood cultures negative, RPP negative, On empiric Doxycycline for now. Anaplasma: Detected. 3. ITP: Is in the differential. 4. DIC/TTP: Not likely. No abnormality in renal function. No fragments. 5. UNDERLYING MYELO INFILTRATIVE DISORDER: MDS, multiple myeloma or lymphoma. She does have a relative lymphocytosis with smudge cells indicated of CLL/MBL (with normal WBC count, MBL is likely.) PLAN: Currently, Lovenox and ceftriaxone are on hold, no clear source and possibly contributing to thrombocytopenia Will proceed with HIT workup. DIC screen: PTT: 30.4,Fibrinogen 458. Will check peripheral blood for flow cytometry to confirm MBL. Follow labs closely. Thank you, CC: Noe Dejesus. - Time Spent With Patient Time Spent with Patient (in minutes): 30
[2023-08-21 13:58] LABS: Fibrinogen 458 MG/DL (259-690)
[2023-08-21 14:01] LABS: Partial Thromboplastin Time 30.4 SEC (26.0-36.8)
[2023-08-21] MEDS: Calcium Carbonate 750 MG TAB.CHEW PO (16:31)
[2023-08-21] MEDS: Latanoprost 0.005 % Ophth Sol 2.5 ML DROPS 1 DROP EYE-BOTH (20:29)
[2023-08-21] MEDS: Acetaminophen 325 MG TABLET 650 MG PO (20:29)
[2023-08-21] MEDS: Benzonatate 100 MG CAPSULE PO (21:50)
[2023-08-22] VITALS (9 sets, daily range): BP systolic 115–141; BP diastolic 54–70; PULSE 67–80; RESP 18–20; TEMP 36.3–36.9; O2SAT 97–98
[2023-08-22 08:42] LABS: Basophils Percent Auto 0.6 % (0-2); Eosinophils Absolute Auto 0.1 X10*3/uL (0.0-0.4); Eosinophils Percent Auto 0.9 % (0-4); Hematocrit 32.6 % (37.0-47.0); Hemoglobin 10.8 g/dl (12.0-16.0); Imm Gran Abs Auto 0.05 X10*3/uL (0.00-0.03); Imm Gran Pct Auto 0.7 % (0.0-0.4); Lymphocytes Absolute Auto 4.4 X10*3/uL (1.2-4.9); Lymphocytes Percent Auto 65.9 % (20-40); MANUAL DIFF FLAG SCAN; Mean Corpuscular HGB Conc 33.1 g/dl (31.0-35.0); Mean Corpuscular Volume 87.4 fL (80.0-98.0); Mean Platelet Volume 13.4 fL (9.4-12.3); Monocytes Absolute Auto 0.7 X10*3/uL (0.1-1.2); Monocytes Percent Auto 10.9 % (2-11); Neutrophils Absolute Auto 1.4 x10*3/uL (2.0-8.3); Red Blood Count 3.73 X10*6/uL (4.20-5.50); Red Cell Distribution Width 16.6 % (11.0-16.0); SCAN SMEAR FLAG 1; White Blood Count 6.7 X10*3/uL (4.8-10.8)
[2023-08-22 08:43] LABS: PLT ABN DIST 1; Platelet Count 58 X10*3/uL (160-400)
[2023-08-22] MEDS: Metoprolol Tartrate 50 MG TABLET PO ×2 (08:58→20:45)
[2023-08-22] MEDS: Doxycycline Monohydrate 100 MG CAPSULE PO ×2 (08:59→20:47)
[2023-08-22] MEDS: 0.9 % Sodium Chloride Flush 3 ML SYRINGE IVFLUSH ×3 (08:59→20:47)
[2023-08-22 09:14] LABS: SLIDE REVIEW VERIFIED
--- NOTE | 2023-08-22 10:23 | MHC.CM.PN ---
Per ROUNDS discussion, Patient may be ready for dc tomorrow. Per MD, Psych has cleared Patient and Patient wants to go home. 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 CM will follow.
--- NOTE | 2023-08-22 11:18 | MHC.CM.PN ---
CM assisted Patient with the completion of a HCP; she has named her Nephew and his as her Agents. HCP has been uploaded into [employer] and a copy has been placed on the chart.
[2023-08-22] MEDS: Calcium Carbonate 750 MG TAB.CHEW PO (11:59)
--- NOTE | 2023-08-22 13:34 | P.PNIM_ITS ---
Subjective Subjective Date of Service: 08/22/23 Interval History: Seen and examined morning Follow-up for thrombocytopenia, fever No fever overnight. Feeling well Review of Systems Review of Systems: Yes all other systems are reviewed and are negative Constitutional Constitutional: Denies chills and Denies fever(s) Cardiovascular Cardiovascular: Denies chest pain and Denies palpitations Endocrine Endocrine: Denies palpitations Physical Exam 2 Vital Signs: Vital Signs: Last Vital Signs Temp 98.0 F 08/22/23 11:03 Pulse 70 08/22/23 11:03 Resp 18 08/22/23 11:03 BP 132/62 08/22/23 11:03 Pulse Ox 97 08/22/23 11:03 O2 Del Method Room Air 08/22/23 11:03 BMI result Body Mass Index 28.9 Const: General: cooperative, comfortable, no acute distress, alert and awake Nutritional Appearance: average body habitus Orientation/consciousness: p atient oriented x3 Resp: Effort & Inspection: normal respiratory effort, able to speak in complete sentences, no respiratory distress and no use of accessory muscles Cardio: Rate: regular rate GI: Inspection: No distended Palpation (GI): Soft to palpation and nontender Neuro: General: patient oriented x3 and moves all extremities Extrem: General: Yes no pedal edema Objective Data Active Medications Acetaminophen (Acetaminophen 325 Mg Tablet) 650 mg PO Q6H PRN PRN Reason: Pain, Mild (Pain Scale 1-3), fever or headache Last Admin: 08/21/23 20:29 Dose: 650 mg Documented By: CELE Benzonatate (Benzonatate 100 Mg Capsule) 100 mg PO TID PRN PRN Reason: Cough Last Admin: 08/21/23 21:50 Dose: 100 mg Documented By: CELE Calcium Carbonate (Calcium Carbonate 750 Mg Tab.Chew) 750 mg PO Q4H PRN PRN Reason: Heartburn Last Admin: 08/22/23 11:59 Dose: 750 mg Documented By: NICO Doxycycline Monohydrate (Doxycycline Monohydrate 100 Mg Capsule) 100 mg PO BID [facility] Last Admin: 08/22/23 08:59 Dose: 100 mg Documented By: NICO Latanoprost (Latanoprost 0.005 % Ophth Susana 2.5 Ml Drops) 1 drop EYE-BOTH BEDTIME [facility] Last Admin: 08/21/23 20:29 Dose: 1 drop Documented By: CELE Magnesium Hydroxide (Milk Of Magnesia 30 Ml Oral.Susp) 30 ml PO DAILY PRN PRN Reason: Constipation Melatonin (Melatonin 3 Mg Tablet) 6 mg PO BEDTIME PRN PRN Reason: Insomnia Metoprolol Tartrate (Metoprolol Tartrate 50 Mg Tablet) 50 mg PO BID [facility]; Protocol Last Admin: 08/22/23 08:58 Dose: 50 mg Documented By: NICO Ondansetron HCl (Ondansetron Hcl 4 Mg/2 Ml Vial) 4 mg IVPUSH Q8H PRN PRN Reason: Nausea and Vomiting Sodium Chloride (0.9 % Sodium Chloride Flush 3 Ml Syringe) 3 ml IVFLUSH QSHIFT ADWO[facility] Last Admin: 08/22/23 08:59 Dose: 3 ml Documented By: NICO Labs 08/22/23 07:46 08/21/23 06:29 Labs: Laboratory Results - last 24 hr 08/21/23 08/22/23 13:38 07:46 MCV 87.4 MCH 29.0 MCHC 33.1 RDW 16.6 H Plt Count 58 L D MPV 13.4 H Immature Gran % (Auto) 0.7 H Neut % (Auto) 21.0 L Lymph % (Auto) 65.9 H [place] % (Auto) 10.9 Eos % (Auto) 0.9 Baso % (Auto) 0.6 Lymph # (Auto) 4.4 [place] # (Auto) 0.7 Eos # (Auto) 0.1 Baso # (Auto) 0.0 Abs Immat Gran (auto) 0.05 H Absolute Neuts (auto) 1.4 L Absolute Nucleated RBC 0.000 Nucleated RBC % (auto) 0.0 Smear Tech's Comments VERIFIED APTT 30.4 Fibrinogen 458 Assessment and Plan (1) Thrombocytopenia: Status: Acute (2) SIRS (systemic inflammatory response syndrome): Status: Acute Plan Pt is a 77-year-old female with a PMH significant for?mild intermittent asthma, rheumatoid arthritis, glaucoma, and depression who was admitted to [facility] psych for increasing depression with SI with plans for overdosing on home medications. 08/15 patient was seen and evaluated for rapid response for abnormal EKG and elevated heart rate. On day of admission patient had repeat episode with EKG concerning for SVT versus AFib. Patient will be brought to medical floor for treatment and further evaluation of symptomatic tachycardia concerning for SVT versus new onset AFib with RVR and fever . SIRS No clear source of infection, ?viral ?tick borne. no specific symptoms CXR negative, UA was drawn 9 hours after starting Abx, no urinary symptoms, urine culture negative. had been started on cefuroxime 08/15 and received 3 doses and then was changed to IV ceftriaxone upon admission to the medical floor. RPP negative blood cultures negative Has been afebrile since starting doxycycline so will continue for now, will d/c ceftriaxone as no clear source and possibly contributing to thrombocytopenia Tick-borne panel pending ID consult pending acute thrombocytopenia ? due to acute viral infection vs abx or less likely HIT stop lovenox repeat check manual dif hold ceftriaxone for now hematology following HIT panel pending as well as workup for myelo infiltrative disorder due to lymphocytosis with smudge cells. Platelets trending up somewhat today Follow CBC hold aspirin recurrent symptomatic SVT controlled normal TSH Metoprolol to 50 bid Echo LVEF of 64%. No wall motion abnormalities Cardiology input appreciated Major depressive disorder psychiatry input appreciated, OP follow up w PCP, no need for readmission or antidepressant this time Glaucoma Continue latanoprost Rheumatoid arthritis Continue leflunomide on discharge GERD Continue PPI Full Code DVT Prophylaxis: Lovenox d/c due to thrombocytopenia, mechanical devices Requires ongoing inpatient hospitalization for fever, acute thrombocytopenia Quality Stroke Does the patient have a stroke diagnosis?: No VTE Prior VTE?: No VTE Risk Level:: Medical - moderate - high VTE Device Contraindication: Treatment Not Indicated VTE Drug Contraindication: N/A - Med Ordered
[2023-08-22] MEDS: Melatonin 3 MG TABLET 6 MG PO (20:44)
[2023-08-22] MEDS: Acetaminophen 325 MG TABLET 650 MG PO (20:44)
[2023-08-22] MEDS: Benzonatate 100 MG CAPSULE PO (20:44)
[2023-08-22] MEDS: Latanoprost 0.005 % Ophth Sol 2.5 ML DROPS 1 DROP EYE-BOTH (20:47)
[2023-08-23 04:00] VITALS: BP 139/67; PULSE 67; RESP 20; TEMP 36.7; O2SAT 96
[2023-08-23 04:43] LABS: A. Phagocytphilium DNA,RT-PCR DETECTED (NOT DETECTED); Babesia Microti DNA, RT-PCR NOT DETECTED (NOT DETECTED); Borrelia Miyamotoi,DNA RT-PCR NOT DETECTED (NOT DETECTED); E.Chaffeensis DNA RT-PCR NOT DETECTED (NOT DETECTED); Lyme(Borrelia ssp)DNA RT-PCR NOT DETECTED (NOT DETECTED)
[2023-08-23 07:58] LABS: Monocytes Percent Auto 9.6 % (2-11); Neutrophils Percent Auto 22.6 % (45-73)
[2023-08-23 08:00] VITALS: BP 156/78; PULSE 69; RESP 20; TEMP 36.3; O2SAT 97
[2023-08-23 08:00] LABS: Basophils Absolute Auto 0.1 X10*3/uL (0.0-0.2); Basophils Percent Auto 0.9 % (0-2); Eosinophils Percent Auto 0.3 % (0-4); Hematocrit 29.6 % (37.0-47.0); Hemoglobin 9.8 g/dl (12.0-16.0); Imm Gran Abs Auto 0.05 X10*3/uL (0.00-0.03); Imm Gran Pct Auto 0.7 % (0.0-0.4); Lymphocytes Absolute Auto 4.6 X10*3/uL (1.2-4.9); Lymphocytes Percent Auto 65.9 % (20-40); Mean Corpuscular HGB Conc 33.1 g/dl (31.0-35.0); Mean Corpuscular Volume 87.6 fL (80.0-98.0); Mean Platelet Volume 13.3 fL (9.4-12.3); Monocytes Absolute Auto 0.7 X10*3/uL (0.1-1.2); Neutrophils Absolute Auto 1.6 x10*3/uL (2.0-8.3); Red Blood Count 3.38 X10*6/uL (4.20-5.50); Red Cell Distribution Width 16.4 % (11.0-16.0)
[2023-08-23 08:01] LABS: Platelet Count 72 X10*3/uL (160-400)
[2023-08-23 08:02] LABS: MANUAL DIFF FLAG SCAN
[2023-08-23 08:26] LABS: SLIDE REVIEW VERIFIED
[2023-08-23 08:55] VITALS: BP 156/78; PULSE 69
[2023-08-23] MEDS: Folic Acid 1 MG TABLET PO (08:55)
[2023-08-23] MEDS: Metoprolol Tartrate 50 MG TABLET PO (08:55)
[2023-08-23] MEDS: Doxycycline Monohydrate 100 MG CAPSULE PO (08:55)
[2023-08-23] MEDS: 0.9 % Sodium Chloride Flush 3 ML SYRINGE IVFLUSH (09:02)
--- NOTE | 2023-08-23 11:31 | HO.PM.IMPN ---
Subjective Subjective Date of Service: 08/23/23 Interval History: Seen and examined morning Follow-up for thrombocytopenia, fever No fever overnight. Feeling well Review of Systems Review of Systems: Yes all other systems are reviewed and are negative Constitutional Constitutional: Denies chills and Denies fever(s) Cardiovascular Cardiovascular: Denies chest pain and Denies palpitations Endocrine Endocrine: Denies palpitations Physical Exam Vital Signs: Vital Signs: Last Vital Signs Temp 97.4 F 08/23/23 08:00 Pulse 69 08/23/23 08:55 Resp 20 08/23/23 08:00 BP 156/78 H 08/23/23 08:55 Pulse Ox 97 08/23/23 08:00 O2 Del Method Room Air 08/23/23 08:00 BMI result Body Mass Index 28.9 Appearing in no acute distress lung sounds are clear to auscultation heart regular rate rhythm, clear S1, S2 positive bowel sounds, abdomen is soft, nontender neuro patient is alert x3, no focal deficits Objective Data Active Medications Acetaminophen (Acetaminophen 325 Mg Tablet) 650 mg PO Q6H PRN PRN Reason: Pain, Mild (Pain Scale 1-3), fever or headache Last Admin: 08/22/23 20:44 Dose: 650 mg Documented By: CELE Benzonatate (Benzonatate 100 Mg Capsule) 100 mg PO TID PRN PRN Reason: Cough Last Admin: 08/22/23 20:44 Dose: 100 mg Documented By: CELE Calcium Carbonate (Calcium Carbonate 750 Mg Tab.Chew) 750 mg PO Q4H PRN PRN Reason: Heartburn Last Admin: 08/22/23 11:59 Dose: 750 mg Documented By: NICO Doxycycline Monohydrate (Doxycycline Monohydrate 100 Mg Capsule) 100 mg PO BID [facility] Last Admin: 08/23/23 08:55 Dose: 100 mg Documented By: THUY Folic Acid (Folic Acid 1 Mg Tablet) 1 mg PO DAILY [facility] Last Admin: 08/23/23 08:55 Dose: 1 mg Documented By: THUY Latanoprost (Latanoprost 0.005 % Ophth Susana 2.5 Ml Drops) 1 drop EYE-BOTH BEDTIME [facility] Last Admin: 08/22/23 20:47 Dose: 1 drop Documented By: CELE Magnesium Hydroxide (Milk Of Magnesia 30 Ml Oral.Susp) 30 ml PO DAILY PRN PRN Reason: Constipation Melatonin (Melatonin 3 Mg Tablet) 6 mg PO BEDTIME PRN PRN Reason: Insomnia Last Admin: 08/22/23 20:44 Dose: 6 mg Documented By: CELE Metoprolol Tartrate (Metoprolol Tartrate 50 Mg Tablet) 50 mg PO BID [facility]; Protocol Last Admin: 08/23/23 08:55 Dose: 50 mg Documented By: THUY Ondansetron HCl (Ondansetron Hcl 4 Mg/2 Ml Vial) 4 mg IVPUSH Q8H PRN PRN Reason: Nausea and Vomiting Sodium Chloride (0.9 % Sodium Chloride Flush 3 Ml Syringe) 3 ml IVFLUSH QSHIFT [facility] Last Admin: 08/23/23 09:02 Dose: 3 ml Documented By: THUY Labs 08/23/23 06:36 08/21/23 06:29 Labs: Laboratory Results - last 24 hr 08/21/23 08/23/23 10:11 06:36 MCV 87.6 MCH 29.0 MCHC 33.1 RDW 16.4 H Plt Count 72 L MPV 13.3 H Immature Gran % (Auto) 0.7 H Neut % (Auto) 22.6 L Lymph % (Auto) 65.9 H [place] % (Auto) 9.6 Eos % (Auto) 0.3 Baso % (Auto) 0.9 Lymph # (Auto) 4.6 [place] # (Auto) 0.7 Eos # (Auto) 0.0 Baso # (Auto) 0.1 Abs Immat Gran (auto) 0.05 H Absolute Neuts (auto) 1.6 L Absolute Nucleated RBC 0.000 Nucleated RBC % (auto) 0.0 Smear Tech's Comments VERIFIED A.phagocytophil DNA PCR DETECTED A Babesia microti DNA PCR NOT DETECTED Borrelia sp DNA (PCR) NOT DETECTED Borrelia miyamotoi (PCR) NOT DETECTED E.chaffeensis DNA (PCR) NOT DETECTED Tick-borne Disease PCR SEE NOTE Assessment and Plan (1) Thrombocytopenia: Status: Acute (2) SIRS (systemic inflammatory response syndrome): Status: Acute Plan Pt is a 77-year-old female with a PMH significant for?mild intermittent asthma, rheumatoid arthritis, glaucoma, and depression who was admitted to [facility] psych for increasing depression with SI with plans for overdosing on home medications. 08/15 patient was seen and evaluated for rapid response for abnormal EKG and elevated heart rate. On day of admission patient had repeat episode with EKG concerning for SVT versus AFib. Patient will be brought to medical floor for treatment and further evaluation of symptomatic tachycardia concerning for SVT versus new onset AFib with RVR and fever . SIRS No clear source of infection, ?viral ?tick borne. no specific symptoms CXR negative, UA was drawn 9 hours after starting Abx, no urinary symptoms, urine culture negative. had been started on cefuroxime 08/15 and received 3 doses and then was changed to IV ceftriaxone upon admission to the medical floor. RPP negative blood cultures negative Has been afebrile since starting doxycycline so will continue for now, will d/c ceftriaxone as no clear source and possibly contributing to thrombocytopenia Tick-borne panel pending ID consult pending acute thrombocytopenia ? due to acute viral infection vs abx or less likely HIT stop lovenox repeat check manual dif hold ceftriaxone for now hematology following HIT panel pending as well as workup for myelo infiltrative disorder due to lymphocytosis with smudge cells. Platelets trending up somewhat today Follow CBC hold aspirin recurrent symptomatic SVT controlled normal TSH Metoprolol to 50 bid Echo LVEF of 64%. No wall motion abnormalities Cardiology input appreciated Major depressive disorder psychiatry input appreciated, OP follow up w PCP, no need for readmission or antidepressant this time Glaucoma Continue latanoprost Rheumatoid arthritis Continue leflunomide on discharge GERD Continue PPI Full Code DVT Prophylaxis: Lovenox d/c due to thrombocytopenia, mechanical devices Requires ongoing inpatient hospitalization for fever, acute thrombocytopenia Quality Stroke Does the patient have a stroke diagnosis?: No VTE Prior VTE?: No VTE Risk Level:: Medical - moderate - high VTE Device Contraindication: Treatment Not Indicated VTE Drug Contraindication: N/A - Med Ordered
[2023-08-23 11:59] VITALS: BP 130/66; PULSE 69; RESP 20; TEMP 36.7; O2SAT 98
--- NOTE | 2023-08-23 12:12 | PM.DS ---
DS: Providers Provider Date of Service: 08/23/23 Date of admission: 08/17/23 13:45 Primary care physician: Noe Dejesus MD Consults: 08/17/23 14:45 Consult to Cardiology Routine Consulting [place] [facility] Reason for consultation: Symptomatic SVT vs AFib w/RVR 08/18/23 09:31 Consult to Psychiatry Routine Consulting Provider: Psych Covering Reason for consultation: discharge medications planning. does not want to go back to psych floor. 08/21/23 07:38 Consult to Infectious Diseases Routine Consulting Provider: [facility] Reason for consultation: fever Has provider been notified: No 08/21/23 10:17 Consult to Hematology / Oncology Routine Consulting Provider: [facility] [place] [facility] Reason for consultation: acute thrombocytopenia ?HIT Has provider been notified: No DS: Diagnosis Discharge Diagnosis (1) Thrombocytopenia: Status: Acute (2) SIRS (systemic inflammatory response syndrome): Status: Acute DS: Summary Hospital Course Hospital Course: History and physical as per admitting provider. Pt is a 77-year-old female with a PMH significant for?mild intermittent asthma, rheumatoid arthritis, glaucoma, and depression who was admitted to [facility] for increasing depression with SI with plans for overdosing on home medications. Yesterday patient was seen and evaluated for rapid response for abnormal EKG and elevated heart rate. Initial EKG showed supraventricular with mild, diffuse ST depressions, and repeat EKG showed sinus rhythm of wine a 6 with PACs, similar to previous taken at [facility]. Patient was given metoprolol 25 mg p.o.. During this time patient remained largely asymptomatic: Reports still felt flushed, but denied chest pain or pressure. No shortness of breath or difficulty breathing. This afternoon after lunch, patient had repeat episode of feeling hot, lightheaded, diaphoretic, ?spacey?, and like her was racing. EKG was taken which showed AFib with RVR 117. Patient was placed on continuous monitoring on EKG machine, and rhythm strip occasionally going in and out of what appeared to be other episodes of SVT into the 160s. Patient again denied chest pain or pressure during this time. Denies any significant past cardiac history or similar episodes. Was again given metoprolol 25 mg p.o.. Lab work yesterday showed low albumin of 2.9 and slightly low sodium of 134, otherwise grossly unremarkable. No leukocytosis. Stable H&H. No significant electrolyte abnormalities. UA negative for UTI. Tox screen negative. CXR negative for focal consolidation. Given repeat episodes of symptomatic tachycardia, patient will be brought to the hospital floor for further treatment and evaluation of intermittent SVT versus new onset AFib. 77-year-old woman treated for SIRS with initially no clear infection. There was a question of tick-borne illness. Lyme panel still pending, Babesia negative but Anaplasma phagocytophilum positive. She has been on doxycycline and will continue a total of 10 day treatment. Her blood cultures have remained negative, she has had no more fevers. She did develop acute thrombocytopenia with platelets as low as 40 but up to 72 today related to the anaplasma. She was seen evaluated by Hematology and can follow-up as an outpatient for the thrombocytopenia but hopefully it should improve with treatment of the tick-borne illness. She had some episodes of recurrent symptomatic SVT, normal TSH, echo with EF of 64% without wall motion abnormalities. He was started on metoprolol 50 mg b.i.d. and has been in normal sinus rhythm with no further episodes of SVT Depression. She was transferred to the medical floor from psychiatric floor. Was seen evaluated by Psychiatry who discharged her from his service and thought that she could return home. Glaucoma continue latanoprost Rheumatoid arthritis. Continue home medications GERD. Continue PPI Time Attestation Discharge Coordination Time (in mins): 35 Quality: Safe Use of Opioids Does Pt have an Active Cancer Diagnosis on the Problem List?: No Quality: Stroke Does the patient have a stroke diagnosis?: No Physical Exam Vital Signs: Vital Signs: Last Vital Signs Temp 98.1 F 08/23/23 11:59 Pulse 69 08/23/23 11:59 Resp 20 08/23/23 11:59 BP 130/66 08/23/23 11:59 Pulse Ox 98 08/23/23 11:59 O2 Del Method Room Air 08/23/23 11:59 BMI result Body Mass Index 28.9 Appearing in no acute distress head is normocephalic atraumatic eyes pupils are PERRLA sclera is anicteric mouth throat mucous membranes are intact and moist neck is supple no lymphadenopathy, no JVD noted lung sounds are clear to auscultation heart regular rate rhythm, clear S1, S2 positive bowel sounds, abdomen is soft, nontender neuro patient is alert x3, no focal deficits DS: Data Data Completed and Pending Labs on day of discharge: Laboratory Results - last 24 hr 08/21/23 08/23/23 10:11 06:36 WBC 7.0 RBC 3.38 L Hgb 9.8 L Hct 29.6 L MCV 87.6 MCH 29.0 MCHC 33.1 RDW 16.4 H Plt Count 72 L MPV 13.3 H Immature Gran % (Auto) 0.7 H Neut % (Auto) 22.6 L Lymph % (Auto) 65.9 H Whitley % (Auto) 9.6 Eos % (Auto) 0.3 Baso % (Auto) 0.9 Lymph # (Auto) 4.6 [place] # (Auto) 0.7 Eos # (Auto) 0.0 Baso # (Auto) 0.1 Abs Immat Gran (auto) 0.05 H Absolute Neuts (auto) 1.6 L Absolute Nucleated RBC 0.000 Nucleated RBC % (auto) 0.0 Smear Tech's Comments VERIFIED A.phagocytophil DNA PCR DETECTED A Babesia microti DNA PCR NOT DETECTED Borrelia sp DNA (PCR) NOT DETECTED Borrelia miyamotoi (PCR) NOT DETECTED E.chaffeensis DNA (PCR) NOT DETECTED Tick-borne Disease PCR SEE NOTE Preliminary micro results at discharge 08/18/23 21:08 Blood Culture - Preliminary Blood - Venous No growth after 48 hours. 08/18/23 21:08 Blood Culture - Preliminary Blood - Venous No growth after 48 hours. Discharge Plan Discharge Anticipated Discharge Date/Time: 08/23/23 12:11 Patient Disposition: Home, Self-Care Discharge Diagnosis: Acute thrombocytopenia SVT Anaplasma phagocytophilum Referrals: Lissa Burgos MD [Physician] - 1 Week (Follow-up for thrombocytopenia) Noe Dejesus MD [Primary Care Provider] - 1 Week Discharge Medications: New metoprolol tartrate 50 mg Tablet 50 mg PO BID Qty: 60 0RF Protocol: Hold for SBP/HR < HOLD for SBP < : 90 HOLD for HR < : 60 doxycycline monohydrate 100 mg Capsule 100 mg PO BID Qty: 14 0RF Continued celecoxib 200 mg Capsule 200 mg PO DAILY 30 Days Qty: 30 0RF latanoprost 0.005 % drops 1 drp ophthalmic (eye) BEDTIME 30 Days Qty: 5 0RF leflunomide 20 mg tablet 20 mg PO DAILY 30 Days Qty: 30 0RF folic acid 1 mg tablet 1 mg PO DAILY 30 Days Qty: 30 0RF pantoprazole 40 mg tablet,delayed release (DR/EC) 40 mg PO DAILY@0630 Discontinued cefuroxime axetil 250 mg Tablet 250 mg PO Q12H 5 Days Qty: 10 0RF Rx Instructions: END DATE: 08/22/23 aspirin 325 mg Tablet 325 mg PO BID Qty: 60 0RF Discharge Orders: Discharge Order (Routine); Ordered 08/23/23 Ordered By: Kareen Peterson Diet: Advance to usual diet Activity on Discharge: As tolerated Stand Alone Forms: Patient Portal Discharge page Print Language: [place]serratian Care Plan Goals: Follow up outpatient with Hematology for thrombocytopenia Health Concerns: Acute thrombocytopenia SVT Anaplasma phagocytophilum Plan of Treatment: Follow-up with primary care provider as needed Take all medications as prescribed Assessment: See discharge summary
[2023-08-23 12:21] VITALS: BP 133/66
--- NOTE | 2023-08-23 12:55 | MHC.CM.PN ---
Second IMM 08/23/23, pt has been medically cleared for DC, she will go home via private transport, DCP: Self Care.
--- NOTE | 2023-08-23 13:58 | W.PM.IDCN ---
History of Present Illness Data of Consult Service Date: 08/22/23 Requesting physician: Pily Ferrer Primary Care Provider: Noe Dejesus MD HPI Reason for consult: fever of unknown origin,rheumatoid arthritis She presents with weakness after falling on the floor and found to have temperature Temperature on 08/18 high as 104.9 and last temperature 100.8 on 08/19. She has RA,not active joints now. Review of Systems Review of Systems: Yes all other systems are reviewed and are negative PMFSH Past Medical History Medical History Depression Macular degeneration Glaucoma Urinary tract infection Asthma Family History Family History Father H/O heart surgery Family history: reviewed and not pertinent Surgical History Surgical History History of hysterectomy History of total knee replacement Social History Social History Household Members: None Housing: House Do you presently have visiting nurse or other home services: No Patient Tobacco Use Status: Never used Tobacco e-Cigarette/Vaping Use: Never Used Use of substances other than those prescribed or required for medical reasons: Yes Substance Use Type: Marijuana Substance Use Frequency: Occasionally Last Used Substance: Weeks (ago) Currently Displaying Signs/Symptoms of Drug Intoxication Withdrawal: No Have you been hit, kicked, punched, or otherwise hurt by someone within the past year? If so, by whom?: No Do you feel safe in your current relationship?: Yes Is there a partner from a previous relationship who is making you feel unsafe now?: No Are you made to feel afraid or neglected: No Advance Directives: No Advance Directives Information Provided: No Do you have a plan to hurt others: No Plan Recently lost weight without trying: Yes How much weight loss: 2-13 pounds Eating poorly because of decreased appetite: Yes Nutrition screen score: 4 Nutrition Risks: No Nutritional Risk Patient : No : No Poor oral hygiene: No service: No Meds Allergies Allergy/AdvReac Type Severity Reaction Status Date / Time etanercept [From Enbrel] Allergy Unknown Unknown Verified 08/15/23 18:23 Active Medications: Current Medications Acetaminophen (Acetaminophen 325 Mg Tablet) 650 mg PO Q6H PRN PRN Reason: Pain, Mild (Pain Scale 1-3), fever or headache Last Admin: 08/22/23 20:44 Dose: 650 mg Benzonatate (Benzonatate 100 Mg Capsule) 100 mg PO TID PRN PRN Reason: Cough Last Admin: 08/22/23 20:44 Dose: 100 mg Calcium Carbonate (Calcium Carbonate 750 Mg Tab.Chew) 750 mg PO Q4H PRN PRN Reason: Heartburn Last Admin: 08/22/23 11:59 Dose: 750 mg Doxycycline Monohydrate (Doxycycline Monohydrate 100 Mg Capsule) 100 mg PO BID [facility] Last Admin: 08/23/23 08:55 Dose: 100 mg Folic Acid (Folic Acid 1 Mg Tablet) 1 mg PO DAILY [facility] Last Admin: 08/23/23 08:55 Dose: 1 mg Latanoprost (Latanoprost 0.005 % Ophth Susana 2.5 Ml Drops) 1 drop EYE-BOTH BEDTIME [facility] Last Admin: 08/22/23 20:47 Dose: 1 drop Magnesium Hydroxide (Milk Of Magnesia 30 Ml Oral.Susp) 30 ml PO DAILY PRN PRN Reason: Constipation Melatonin (Melatonin 3 Mg Tablet) 6 mg PO BEDTIME PRN PRN Reason: Insomnia Last Admin: 08/22/23 20:44 Dose: 6 mg Metoprolol Tartrate (Metoprolol Tartrate 50 Mg Tablet) 50 mg PO BID [facility]; Protocol Last Admin: 08/23/23 08:55 Dose: 50 mg Ondansetron HCl (Ondansetron Hcl 4 Mg/2 Ml Vial) 4 mg IVPUSH Q8H PRN PRN Reason: Nausea and Vomiting Sodium Chloride (0.9 % Sodium Chloride Flush 3 Ml Syringe) 3 ml IVFLUSH QSHIFT [facility] Last Admin: 08/23/23 09:02 Dose: 3 ml Home Medications ?Medication ?Instructions ?Recorded ?Confirmed ?Last Taken ?Type pantoprazole 40 mg tablet,delayed 40 mg PO DAILY@0630 08/17/23 08/17/23 Unknown History release Physical Exam Vital Signs: Vital Signs: Last Vital Signs Temp 98.1 F 08/23/23 11:59 Pulse 69 08/23/23 11:59 Resp 20 08/23/23 11:59 BP 133/66 08/23/23 12:21 Pulse Ox 98 08/23/23 11:59 O2 Del Method Room Air 08/23/23 11:59 BMI result Body Mass Index 28.9 Extrem: Other: arthritic hands Results Labs 08/23/23 06:36 08/21/23 06:29 Labs: Short CBC 08/23/23 Range/Units 06:36 WBC 7.0 (4.8-10.8) X10*3/uL Hgb 9.8 L (12.0-16.0) g/dl Hct 29.6 L (37.0-47.0) % Plt Count 72 L (160-400) X10*3/uL Microbiology Microbiology Results: Microbiology 08/18/23 21:08 Blood - Venous Blood Culture - Preliminary No growth after 48 hours. 08/18/23 21:08 Blood - Venous Blood Culture - Preliminary No growth after 48 hours. Assessment and Plan (1) Thrombocytopenia: Status: Acute (2) Major depressive disorder: Status: Acute Plan She has some thrombocytopenia,possible tickborne or related to RA. She has RA as well so may have some activity. She is not on oxygen. Await tick serologies, check anaplasmosis and babesiosis. Doxycycline 100 mg po bid for 10 days cover tick borne bacteria.
[2023-08-25 13:27] LABS: Lyme Abs Screen <0.90 index
== END 2023-08-23 15:08 | disposition home or self-care (01) | DRG 309 ==
PROVIDERS: Internal Medicine Medical Oncology; Physician Assistant Medical; Student in an Organized Health Care Education/Training Program; Admitting Provider Student in an Organized Health Care Education/Training Program; PCP Internal Medicine; Visit Provider Nurse Practitioner Acute Care
DX: I47.10 Supraventricular tachycardia, unspecified (principal); A79.82 Anaplasmosis [A. phagocytophilum]; J45.20 Mild intermittent asthma, uncomplicated; K21.9 Gastro-esophageal reflux disease without esophagitis; F43.25 Adjustment disorder with mixed disturbance of emotions and conduct; D69.59 Other secondary thrombocytopenia; H40.9 Unspecified glaucoma; F32.9 Major depressive disorder, single episode, unspecified; R82.90 Unspecified abnormal findings in urine; M06.9 Rheumatoid arthritis, unspecified; Z79.899 Other long term (current) drug therapy
CPT/HCPCS: 36415; 70450; 71045; 80048; 80076; 81001; 83605; 84484; 85007; 85025; 85027; 85049; 85384; 85730; 86022; 86617; 86618; 87040; 87468; 87469; 87478; 87484; 87633; 87798; 88184; 88185; 92950; 93005; 93306; 97161; J0696; J1650; Q9957

== ENCOUNTER 2023-08-17 13:45 | Outpatient (BNV) | payer MEDICARE, SELFPAY | END 2023-08-18 07:00 | PROVIDERS: Admitting Provider Student in an Organized Health Care Education/Training Program; PCP Internal Medicine; Visit Provider Internal Medicine | DX: I36.1 Nonrheumatic tricuspid (valve) insufficiency (principal); R93.1 Abnormal findings on diagnostic imaging of heart and coronary circulation; I47.10 Supraventricular tachycardia, unspecified | CPT/HCPCS: 93010; 93306 ==

== ENCOUNTER → 2023-08-17 13:45 | Outpatient (BNV) | payer MEDICARE, SELFPAY | PROVIDERS: Admitting Provider Student in an Organized Health Care Education/Training Program; Visit Provider Student in an Organized Health Care Education/Training Program | DX: R65.10 Systemic inflammatory response syndrome (SIRS) of non-infectious origin without acute organ dysfunction (principal); D69.6 Thrombocytopenia, unspecified | CPT/HCPCS: 99223; 99232; 99233; 99239 ==

== ENCOUNTER → 2023-08-17 13:45 | Outpatient (BNV) | payer MEDICARE, SELFPAY | PROVIDERS: Admitting Provider Student in an Organized Health Care Education/Training Program; PCP Internal Medicine; Visit Provider Internal Medicine | DX: D69.6 Thrombocytopenia, unspecified (principal); F32.9 Major depressive disorder, single episode, unspecified | CPT/HCPCS: 99222 ==

== ENCOUNTER → 2023-08-17 13:45 | Outpatient (BNV) | payer MEDICARE, SELFPAY | PROVIDERS: Admitting Provider Student in an Organized Health Care Education/Training Program; PCP Internal Medicine; Visit Provider Psychiatry & Neurology Psychiatry | DX: F43.25 Adjustment disorder with mixed disturbance of emotions and conduct (principal); I47.10 Supraventricular tachycardia, unspecified | CPT/HCPCS: 99222 ==

== ENCOUNTER → 2023-08-17 13:45 | Outpatient (BNV) | payer MEDICARE, SELFPAY | PROVIDERS: Admitting Provider Student in an Organized Health Care Education/Training Program; Visit Provider Internal Medicine | DX: I47.10 Supraventricular tachycardia, unspecified (principal) | CPT/HCPCS: 93010; 99223; 99233 ==

== ENCOUNTER → 2023-08-17 13:45 | Outpatient (BNV) | payer MEDICARE, SELFPAY | PROVIDERS: Admitting Provider Student in an Organized Health Care Education/Training Program; PCP Internal Medicine; Visit Provider Internal Medicine Medical Oncology | DX: D69.6 Thrombocytopenia, unspecified (principal) | CPT/HCPCS: 99222 ==

== ENCOUNTER → 2023-09-04 10:24 | Outpatient (REF) | payer MEDICARE, SELFPAY ==
--- NOTE | 2023-09-04 10:27 | HM_ITS ---
Conclusion: 1. Patient was monitored for total period of 4 days and 16 hours 2. Baseline was normal sinus rhythm with average heart of 74 beats per minute 3. Occasional PACs noted 4. Frequent PVCs noted with total burden of about 16% mostly isolated 5. No significant pauses noted 6. No patient reported events MTDD
== END ==
LOC: HO.CARD 10:24
PROVIDERS: PCP Internal Medicine; Visit Provider Internal Medicine
DX: I47.10 Supraventricular tachycardia, unspecified (principal)
CPT/HCPCS: 93242

== ENCOUNTER → 2023-09-04 10:27 | Outpatient (BNV) | payer MEDICARE, SELFPAY | PROVIDERS: PCP Internal Medicine; Visit Provider Internal Medicine Cardiovascular Disease | DX: I49.1 Atrial premature depolarization (principal); I49.3 Ventricular premature depolarization | CPT/HCPCS: 93244 ==

== ENCOUNTER → 2023-09-11 11:15 | Outpatient (BNV) | payer MEDICARE, SELFPAY | PROVIDERS: Visit Provider Internal Medicine Medical Oncology | DX: D69.6 Thrombocytopenia, unspecified (principal) | CPT/HCPCS: 99443 ==

== ENCOUNTER 2023-09-15 09:45 | Outpatient (REF) | payer MEDICARE, SELFPAY ==
[2023-09-15 10:05] LABS: MANUAL DIFF FLAG NO
[2023-09-15 10:07] LABS: Basophils Absolute Auto 0.1 X10*3/uL (0.0-0.2); Eosinophils Absolute Auto 0.2 X10*3/uL (0.0-0.4); Eosinophils Percent Auto 2.1 % (0-4); Hematocrit 36.9 % (37.0-47.0); Hemoglobin 11.5 g/dl (12.0-16.0); Imm Gran Abs Auto 0.03 X10*3/uL (0.00-0.03); Imm Gran Pct Auto 0.4 % (0.0-0.4); Lymphocytes Absolute Auto 3.3 X10*3/uL (1.2-4.9); Lymphocytes Percent Auto 46.2 % (20-40); Mean Corpuscular HGB Conc 31.2 g/dl (31.0-35.0); Mean Corpuscular Hemoglobin 29.4 pg (27.0-33.0); Mean Corpuscular Volume 94.4 fL (80.0-98.0); Mean Platelet Volume 9.8 fL (9.4-12.3); Monocytes Absolute Auto 1.1 X10*3/uL (0.1-1.2); Monocytes Percent Auto 14.8 % (2-11); Neutrophils Absolute Auto 2.5 x10*3/uL (2.0-8.3); Neutrophils Percent Auto 35.5 % (45-73); Platelet Count 308 X10*3/uL (160-400); Red Blood Count 3.91 X10*6/uL (4.20-5.50); Red Cell Distribution Width 19.2 % (11.0-16.0); White Blood Count 7.1 X10*3/uL (4.8-10.8)
[2023-09-15 10:23] LABS: Alanine Aminotransferase 13 U/L (0-31); Albumin Level 3.5 g/dL (3.5-5.0); Alkaline Phosphatase 117 U/L (39-117); Anion Gap 11 (12-20); Aspartate Amino Transferase 19 U/L (5-31); Bilirubin Total 0.3 mg/dL (0.0-1.0); Blood Urea Nitrogen 18 mg/dL (9-16); Calcium 9.3 mg/dL (8.4-10.2); Carbon Dioxide 27 mmol/L (22-29); Chloride 107 mmol/L (96-108); Estimated Glomerular Filt Rate > 60; Glucose Random 122 mg/dL (60-115); Potassium 5.4 mmol/L (3.3-5.1); Sodium 140 mmol/L (135-145); Total Protein 6.6 g/dL (6.5-8.0)
== END 2023-09-15 09:46 | disposition home or self-care (01) ==
LOC: HO.LAB 09:45
PROVIDERS: PCP Internal Medicine; Visit Provider Internal Medicine Medical Oncology
DX: D69.6 Thrombocytopenia, unspecified (principal)
CPT/HCPCS: 36415; 80053; 85025

== ENCOUNTER 2023-10-09 07:55 | Outpatient (AMB) | payer MEDICARE, SELFPAY ==
--- NOTE | 2023-10-09 08:16 | MHC.OFFVIS ---
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: No Allergies etanercept [From Enbrel] Allergy (Unknown, Verified 10/09/23 08:22) Unknown Medication List - Last Reconciled 10/09/23 by Miroslava Hernandez NP-C citalopram (Celexa) 20 mg PO DAILY folic acid 1 mg PO DAILY 30 days latanoprost 0.005% 1 drp ophthalmic (eye) BEDTIME 30 days leflunomide 20 mg PO DAILY 30 days metoprolol tartrate 50 mg See Protocol PO BID HPI HPI F/U Holter: Details: Fatmata is an 78-year-old female with past medical history of asthma, depression who recently had psychiatric admission to [facility] and had EKG findings of tachycardia, most suggestive of supraventricular tachycardia. There was concern for possible atrial fibrillation with RVR and she was put on heparin. Her platelets dropped and she was seen by Hematology for possible HIT. She was started on metoprolol for heart rate control. She had an outpatient Holter monitor and now presents for follow-up. Today she reports she has been doing well since her hospital discharge. She denies any feelings of heart palpitations. She does not recall feeling a fast heart rate when she was in the hospital. She has no chest discomfort at rest or with activity. She denies shortness of breath but at times will feel a heaviness with her breathing that she relates to her asthma. No lightheadedness, presyncope, syncope, falls. No PND, orthopnea or edema. Has been taking her metoprolol as directed. [facility] Medical History SVT (supraventricular tachycardia) Adjustment disorder with mixed disturbance of emotions and conduct in remission Major depressive disorder Depression Macular degeneration Glaucoma Urinary tract infection Asthma Surgical History History of hysterectomy History of total knee replacement Family History Father H/O heart surgery Social History Household Members: None Housing: House Do you presently have visiting nurse or other home services: No Patient Tobacco Use Status: Never used Tobacco e-Cigarette/Vaping Use: Never Used Substance Use Type: Marijuana service: No Review of Systems Const All systems reviewed & are unremarkable except as noted in HPI and below ENT Denies dizziness Card Denies chest pain, Denies chest pain at rest, Denies chest pain with activity, Denies rapid heart rate, Denies pedal edema, Denies edema, Denies leg edema, Denies lightheadedness, Denies palpitations, Denies dyspnea, Denies dyspnea on exertion and Denies orthopnea Resp Denies cough, Denies dyspnea and Denies dyspnea on exertion GI Denies hematochezia and Denies change in stool character Musc Denies abnormal gait, Denies limited range of motion, Denies muscle cramps, Denies muscle weakness, Denies numbness, Denies radiating pain into limb, Denies stiffness and Denies tingling Neuro Denies abnormal gait, Denies dizziness, Denies numbness and Denies tingling Endo Denies palpitations Physical Exam Vital Signs: Last Vital Signs Pulse 54 10/09/23 08:20 BP 134/72 10/09/23 08:20 BMI result Body Mass Index 28.5 Const General: cooperative, healthy appearing, comfortable and no acute distress Orientation/consciousness: patient oriented x3 Neck Neck: Yes normal visual inspection and Yes no JVD Resp Effort & Inspection: normal respiratory effort Auscultation: clear to auscultation bilaterally, no rales, no rhonchi and no wheezes Cardio Jugular venous distension: no JVD Rate: regular rate Rhythm: regular rhythm Heart sounds: S1 normal heart sound present, S2 normal heart sound present, no murmurs and no rubs Neuro General: patient oriented x3 Extrem General: Yes normal to inspection and No no pedal edema Psych Appearance: grossly normal Mental Status: mental status grossly normal Speech and movement: Normal speech and movement present Assessment & Plan Assessment & Plan (1) SVT (supraventricular tachycardia): Code(s): I47.10 - Supraventricular tachycardia, unspecified Category: Medical Plan: Episode of tachycardia during recent hospital admission. EKGs reviewed by Dr. Gimenez and thought to be supraventricular tachycardia. There was concern for possible atrial fibrillation. She has no history of cardiac rhythm disturbances. She was initially put on heparin and did have a drop in platelets. 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 Her platelets have improved back to normal. She was not discharged on anticoagulation. She was sent home with metoprolol 50 mg b.i.d.. Since her discharge she has not felt any heart palpitations. She denies feeling rapid heartbeat when she was hospitalized. A Holter monitor was done on 09/04/2023 for 4.5 days showing sinus rhythm with average heart rate 74, occasional PACs and frequent PVCs, 16%. She tells me she drinks 2 caffeinated beverages in the morning and has a high caffeine lactate in the afternoon. She did have recent lab work showing elevated potassium at 5.4. She is not on medications that can raise potassium with the exception of OTC vitamins. Informed her to reduce her caffeinated beverages and suggested decaf. Low-potassium diet reviewed and suggested she stop her OTC vitamins. Echocardiogram while hospitalized had shown EF 64% no regional wall motion abnormalities. In the setting of her normal EF her PVCs are likely benign and may be contributed to high stimulant intake, abnormal potassium. Pulse is regular on exam today. Will have her continue on current metoprolol. Continue physical activity as tolerated. Recommend recheck of her electrolytes, order entered in patient informed. If she has any anginal symptoms then a nuclear stress test will be ordered. Cardiology follow-up 4 months, sooner if needed. (2) PVC (premature ventricular contraction): Code(s): I49.3 - Ventricular premature depolarization Category: Medical Plan: As above (3) Hospital discharge follow-up: Code(s): Z09 - Encounter for follow-up examination after completed treatment for conditions other than malignant neoplasm Category: Medical Plan: As above Plan Time spent on chart review, documentation, interview and assessment Orders: Orders Basic Metabolic Panel Today I49.3 - Ventricular premature depolarization Coding Level of Care Code Est Pt Level 4 (92162) Diagnoses SVT (supraventricular tachycardia) I47.10 PVC (premature ventricular contraction) I49.3 Hospital discharge follow-up Z09 Time Spent (min) 28
[2023-10-09 08:20] VITALS: BP 134/72; PULSE 54; BMI 28.5
== END 2023-10-09 08:46 | disposition home or self-care (01) ==
PROVIDERS: PCP Internal Medicine; Visit Provider Nurse Practitioner Family
DX: I47.10 Supraventricular tachycardia, unspecified (principal); I49.3 Ventricular premature depolarization; Z09 Encounter for follow-up examination after completed treatment for conditions other than malignant neoplasm
CPT/HCPCS: 99214

== ENCOUNTER → 2023-10-09 07:55 | Outpatient (BNVA) | payer MEDICARE, SELFPAY | PROVIDERS: PCP Internal Medicine; Visit Provider Nurse Practitioner Family | DX: Z09 Encounter for follow-up examination after completed treatment for conditions other than malignant neoplasm (principal); I47.10 Supraventricular tachycardia, unspecified; I49.3 Ventricular premature depolarization | CPT/HCPCS: 99212 ==

== ENCOUNTER 2024-04-22 15:18 | Outpatient (AMB) | payer MEDICARE, SELFPAY ==
--- NOTE | 2024-04-22 15:23 | MHC.OFFVIS ---
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 Allergies etanercept [From Enbrel] Allergy (Unknown, Verified 04/22/24 15:26) Unknown Medication List - Last Reconciled 04/22/24 by Miroslava Hernandez, DIRECTOR OF BUSINESS SERVICES-C citalopram (Celexa) 20 mg PO DAILY folic acid 1 mg PO DAILY 30 days latanoprost 0.005% 1 drp ophthalmic (eye) BEDTIME 30 days leflunomide 20 mg PO DAILY 30 days metoprolol tartrate 50 mg See Protocol PO BID HPI HPI r/s 01/22/24 4 mos followup: Details: Fatmata is an 78-year-old female with past medical history of asthma, depression, who recently had psychiatric admission to [facility] and had EKG findings of tachycardia, most suggestive of supraventricular tachycardia. There was concern for possible atrial fibrillation with RVR and she was put on heparin. Her platelets dropped and she was seen by Hematology for possible HIT. She was started on metoprolol for heart rate control. Outpt holter showed frequent PVCs. Today she reports she has been doing well since her last visit in September. At times she will notice her heart beating but does not feel that it is rapid or irregular. No reports of chest discomfort at rest or with activity. She denies shortness of breath but at times will feel a heaviness with her breathing that she relates to her asthma. No lightheadedness, presyncope, syncope, falls. No PND, orthopnea or edema. Good activity tolerance. 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 Has been taking her metoprolol as directed. [facility] Medical History SVT (supraventricular tachycardia) Adjustment disorder with mixed disturbance of emotions and conduct in remission Major depressive disorder Depression Macular degeneration Glaucoma Urinary tract infection Asthma Surgical History History of hysterectomy History of total knee replacement Family History Father H/O heart surgery Social History Household Members: None Housing: House Do you presently have visiting nurse or other home services: No Patient Tobacco Use Status: Never used Tobacco e-Cigarette/Vaping Use: Never Used Substance Use Type: Marijuana service: No Review of Systems Const All systems reviewed & are unremarkable except as noted in HPI and below ENT Denies dizziness Card Denies chest pain, Denies chest pain at rest, Denies chest pain with activity, Denies rapid heart rate, Denies pedal edema, Denies edema, Denies leg edema, Denies lightheadedness, Denies palpitations, Denies dyspnea, Denies dyspnea on exertion and Denies orthopnea Resp Denies cough, Denies dyspnea and Denies dyspnea on exertion GI Denies hematochezia and Denies change in stool character Musc Denies abnormal gait, Denies limited range of motion, Denies muscle cramps, Denies muscle weakness, Denies numbness, Denies radiating pain into limb, Denies stiffness and Denies tingling Neuro Denies abnormal gait, Denies dizziness, Denies numbness and Denies tingling Endo Denies palpitations Physical Exam Vital Signs: BMI result Body Mass Index 28.9 Const General: cooperative, healthy appearing, comfortable and no acute distress Orientation/consciousness: patient oriented x3 Neck Neck: Yes normal visual inspection and Yes no JVD Resp Effort & Inspection: normal respiratory effort Auscultation: clear to auscultation bilaterally, no rales, no rhonchi and no wheezes Cardio Jugular venous distension: no JVD Rate: regular rate Rhythm: regular rhythm Heart sounds: S1 normal heart sound present, S2 normal heart sound present, no murmurs and no rubs Neuro General: patient oriented x3 Extrem General: Yes normal to inspection and No no pedal edema Psych Appearance: grossly normal Mental Status: mental status grossly normal Speech and movement: Normal speech and movement present Assessment & Plan Assessment & Plan (1) SVT (supraventricular tachycardia): Code(s): I47.10 - Supraventricular tachycardia, unspecified Category: Medical Plan: Episode of tachycardia during 08/2023 hospital admission. EKGs reviewed by Dr. Gimenez and thought to be supraventricular tachycardia. There was concern for possible atrial fibrillation. She was initially put on heparin and did have a drop in platelets. 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 She was not discharged on anticoagulation. She was sent home with metoprolol 50 mg b.i.d.. Echocardiogram while hospitalized had shown EF 64% no regional wall motion abnormalities. Outpatient Holter monitor 09/04/2023 for 4.5 days showing sinus rhythm with average heart rate 74, occasional PACs and frequent PVCs, 16%. At that time she was drinking up to 3 caffeinated beverages daily and was instructed to stop. In the setting of her normal EF her PVCs are likely benign and may be contributed to high stimulant intake, abnormal potassium. She has no concerning heart palpitations at this time. Pulse is regular on exam. Will recheck Holter monitor to reassess number of PVCs and for asymptomatic SVT. If she continues to have very frequent PVC will check nuclear stress test. Continue metoprolol. If Holter findings much improved will plan for cardiology follow-up in 1 year, sooner if needed. (2) PVC (premature ventricular contraction): Code(s): I49.3 - Ventricular premature depolarization Category: Medical Plan: As above (3) Elevated blood pressure reading: Code(s): R03.0 - Elevated blood-pressure reading, without diagnosis of hypertension Category: Medical Plan: Blood pressure elevated today. She blames this on being late for her appointment. Blood pressure checked monthly when she has Orencia infusions. Typically systolic runs 120-130. No med changes made. Plan Time spent on chart review, documentation, interview and assessment Orders: Orders ECG 3 day holter monitor Today I47.10 - Supraventricular tachycardia, unspecified, I49.3 - Ventricular premature depolarization Coding Level of Care Code Est Pt Level 3 (12242) Complex EM visit Add On G2211 Diagnoses SVT (supraventricular tachycardia) I47.10 PVC (premature ventricular contraction) I49.3 Elevated blood pressure reading R03.0 Time Spent (min) 24
[2024-04-22 15:24] VITALS: BP 160/72; PULSE 60; BMI 28.9
--- OUTSIDE RECORDS SUMMARY | 2024-04-22 18:47 | XMS_ITS | Patient Health Record ---
Author Organization [facility] Address [address] [place] [address] Care Team Providers Care Career Technical Education Instructor Name Role Phone Noe Dejesus Primary Care Provider Unavailabl e Allergies Allergen (clinical drug ingredient) Drug/Non Drug Allergy documented on EMR Reaction Allergy Type Onset Date Status etanercept Enbrel SOB, Wheezing Drug Allergy Ac tive Reason For Referral No Information Medications Medication SIG (Take, Route, Fr equency, Duration) Notes Start Date End Date Status Ibuprofen 600 MG 1 tablet with food o r milk as needed Orally Three times a day Active Leflunomide 20 MG 1 tablet Orally Once a day Active Turmeric Active Latanoprost 0.005 % 1 drop into affected eye in the evening Ophthalmic Once a day Ac tive Methotrexate Active Orencia Active Folic Acid 1 MG 1 tablet Orally Once a day Active Dorzolamide HCl 2 % 1 drop into affected eye Ophthalmic Three times a day Act [place] Problems Problem Type SNOMED Code ICD Code Onset Dates Problem Status W/U Status Risk Notes Problem [id number] 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 Problem [id number] Rheumatoid arthritis involving multiple sites with positive rheumatoid factor (M05.79) Active confirmed Plan Of Treatment Pending Test Test Name Order Date X ray : Foot, left 3v 09/25/2020 Insurance Providers Payer Name Payer Address Payer Phone Subscriber Number Group Number Insured Name Patient Relationship to Insured Coverage Start Date Coverage End Date [facility] [address] [place] [phone] [id number] Fatmata Talbert Self - patient is the insured Medical (General) History Medical History History ICD Code Rheumatoid arthritis Controlled type 2 Diabetes Mellitus Surgical History Surgery Date(Month/Year) Breast Biopsy Historical hysterectomy Historical Right and left total knee rep lacement.
== END 2024-04-22 15:44 | disposition home or self-care (01) ==
LOC: HO.HCS 15:18
PROVIDERS: PCP Internal Medicine; Visit Provider Nurse Practitioner Family
DX: I47.10 Supraventricular tachycardia, unspecified (principal); I49.3 Ventricular premature depolarization; R03.0 Elevated blood-pressure reading, without diagnosis of hypertension
CPT/HCPCS: 99213; G2211

== ENCOUNTER → 2024-04-22 15:18 | Outpatient (BNVA) | payer MEDICARE, SELFPAY | PROVIDERS: PCP Internal Medicine; Visit Provider Nurse Practitioner Family | DX: I47.10 Supraventricular tachycardia, unspecified (principal); I49.3 Ventricular premature depolarization; R03.0 Elevated blood-pressure reading, without diagnosis of hypertension | CPT/HCPCS: 99212 ==

== ENCOUNTER → 2024-05-03 08:50 | Outpatient (REF) | payer MEDICARE, SELFPAY ==
--- OUTSIDE RECORDS SUMMARY | 2024-05-03 09:13 | XMS_ITS | Clinical Summary ---
Author Organization [address] Building Address [address] [place] [address] Phone Care Team Providers Care Ornament Stapler Name Role Phone Noe Dejesus MD Primary Care Provider [phone] Allergies No known active allergies Medications citalopram (CeleXA) 20 mg tablet Take 1 tablet (20 mg total) by mouth 1 (one) time each day. Active metoprolol tartrate (LOPRESSOR) 25 mg tablet Take 1 tablet (25 mg total) by mouth 2 (two) times a day. Active folic acid (FOLVITE) 1 mg tablet Take 1 tablet (1 mg total) by mouth 1 (one) time each day. Active leflunomide (ARAVA) 20 mg tablet Take 1 tablet (20 mg total) by mouth 1 (one) time each day. Active methotrexate, PF, (Rasuvo, PF,) 25 mg/0.5 mL auto-injector Inject 25 mg under the skin every 30 (thirty) days. Active brimonidine (ALPHAGAN) 0.2 % ophthalmic solution Administer 1 drop into both eyes 2 (two) times a day. Active Encounters Date Type Department Care Team Description 04/26/2024 9:00 AM EDT Telemedicine Internal Medicine - [address] [phone] Encounter for subsequent annual wellness visit (AWV) in Medicare patient (Primary Dx) from Last 3 Months Surgical History Surgery Date Site/Laterality Comments HYSTERECTOMY PROCEDURE: HISTORICAL HYSTERECTOMY; COMMENT: age 23 KNEE SURGERY PROCEDURE: HISTORICAL KNEE SURGERY BREAST BIOPSY PROCEDURE: BX BREAST; PERC NEEDLE CORE W/IMAG GUID; COMMENT: ? left breast bx many years ago neg TOTAL KNEE ARTHROPLASTY Bilateral PROCEDURE: HISTORICAL TOTAL KNEE REPLACE Medical History Medical History Date Comments Age-related macular degeneration DX:Age-related macular degeneration; COMMENT: damaged Glaucoma DX:Glaucoma Rheumatoid arthritis (CMS/HCC) D X:Rheumatoid arthritis (HCC) Malignant melanoma of skin (CMS/HCC) DX:Malignant melanoma of skin (HCC) Asthma Family History Medical History Relation Name Comments Colon cancer Brother 1 Coronary artery disease Brother 1 rheu matic fever Heart attack Brother 1 Stroke Brother 1 No Known Problems Brother 2 toño Coronary artery disease Father cabg x1 Glaucoma Father Colon cancer Mother Coronary artery disease Mother from rheumatic fever Glaucoma Mother Breast cancer Other maternal aunt Relation Name Status Comments Brother 1 Brother 2 toño Alive Father Mother Other Social History Tobacco Use Types Packs/Day Years Used Date Smoking Tobacco: Former Cigarettes Q uit: 02/17/1993 Smokeless Tobacco: Never Alcohol Use Standard Drinks/Week Comments Yes 0 (1 standard drink = 0.6 oz pur e alcohol) Housing Instability Answer Date Recorde d Are you worried that in the next 2 months you may not have stable housing? No 04/26/2024 Food Access & Nutrition Answer Date Rec orded Do you have access to a vari ety of food including fruits and vegetables? Yes 04/26/2024 Health Literacy Answer Date Recorded How often do you need to hav e someone help you when you read instructions, pamphlets, or other written material from your doctor or pharmacy? Never 04/26/2024 Caregiver: How often do you need to have someone help you when you read instructions, pamphlets, or other written material from your doctor or pharmacy? Not on file 04/26/2024 Financial Risk Answer Date Recorded How hard is it for you to pa y for the very basics like food, housing, medical care, and air conditioning / heating? Not very hard 04/26/2024 Transportation Answer Date Recorded Has the lack of transportati on kept you from meetings, work, or from getting things needed for daily living? No Has the lack of transportati on kept you from medical appointments or from getting medications? No 04/26/2024 Social Isolation Answer Date Recorded How often do you feel lonely or isolated from th ose around you? Never 04/26/2024 Food Risk Answer Date Recorded Within the past 12 months we worried whether our food would run out before we got money to buy more. Never true 04/26/2024 Within the past 12 months th e food we bought just didn? t last and we didn? t have money to get more. Not on file 04/26/2024 Dependent Care Answer Date Recorded Do you need help finding or paying for care for your loved ones. For example, children teacher or elderly care for an older adult? No 04/26/2024 Education Answer Date Recorded Do you think completing more education or training, like finishing a GED, going to college, or learning a trade, would be helpful for you? No 04/26/2024 Employment and Income Answer Date Recor ded During the last four weeks, have you been actively looking for work? No 04/26/2024 Living Situation Answer Date Recorded What is your living situation? 0 04/26/2024 Comments Unknown Sex and Gender Information Value Date Recorded Sex Assigned at Not on file Legal Sex Female 9:55 AM EST Gender Identity Not on file Sexual Orientation Not on file Obstetrics History Last Filed Vital Signs Vital Sign Reading Time Taken Comments Blood Pressure 121/60 11/26/2023 3:16 PM EDT Pulse 73 11/26/2023 3:16 PM EDT Temperature - - Respiratory Rate - - Oxygen Saturation - - Inhaled Oxygen Concentration - - Weight 63 kg (139 lb) 11/26/2023 3:16 PM EDT Height 149.9 cm (4' 11 ) 11/26/2023 3:16 PM EDT Body Mass Index 28.07 11/26/2023 3:16 PM EDT Plan of Treatment Health Maintenance Due Date Last Done Comments Diabetes: Annual Foot Exam 08/30/1955 Diabetes: Annual Retina Eye Exam 08/30/1955 DTaP,Tdap,and Td Vaccines (1 - Tdap) 08/30/1962 Zoster Vaccines (1 of 2) 08/30/1993 Pneumococcal Vaccine: 50+ Years (2 of 2 - PPSV23) 07/24/2015 05/29/2015 Osteoporosis Screening (Bone Density Screening) 01/26/2022 Diabetes: Annual Urine Albumin-Creatinine Ratio (uACR) 01/31/2022 Diabetes: Blood Sugar Control Test (HGBA1C) 05/26/2024 11/26/2023, 07/16/2023 Diabetes: Annual GFR (Glomerular Filtration Rate) 11/25/2024 11/26/2023, 08/14/2023, 07/16/2023 Hypertension/CHF/CAD Annual BMP Blood Test 11/25/2024 11/26/2023, 08/14/2023, 07/16/2023 Depression Screening 04/26/2025 04/26/2024 Falls Risk Assessment 04/26/2025 04/26/2024 Medicare Annual Wellness Visit 04/26/2025 04/26/2024 Social Influencers of Health Screening 04/26/2025 04/26/2024 Cholesterol Screening (Lipid Panel) 11/25/2028 11/26/2023, 07/16/2023 Influenza Vaccine Completed 11/20/2023, , 10/01/2021, Additional history exists RSV Immunization Patients 60+ Years Old Completed 02/27/2024 COVID-19 Vaccine Completed 02/29/2024, 08/2022, 11/16/2021, Additional history exists HIB Vaccines Aged Out No longer eligi ble based on patient's age to complete this topic HPV Vaccines Aged Out No longer eligi ble based on patient's age to complete this topic Hepatitis A Vaccines Aged Out No long er eligible based on patient's age to complete this topic Hepatitis B Vaccines Aged Out No long er eligible based on patient's age to complete this topic IPV Vaccines Aged Out No longer eligi ble based on patient's age to complete this topic MMR Vaccines Aged Out No longer eligi ble based on patient's age to complete this topic Meningococcal ACWY Vaccine Aged Out N o longer eligible based on patient's age to complete this topic Meningococcal B Vacine Aged Out No lo nger eligible based on patient's age to complete this topic RSV Immunization Patients Under 20 months Aged Out No longer eligible based on patient's age to complete this topic Varicella Vaccines Aged Out No longer eligible based on patient's age to complete this topic Insurance [employer] MEDICARE Care Teams Ornament Stapler Relationship Specialty Start Date End Date Noe Dejesus MD [address] [place] [id number] PCP - General Internal Medicine 01/30/15
--- OUTSIDE RECORDS SUMMARY | 2024-05-03 09:13 | XMS_ITS | Encounter Summary ---
Author Organization [facility] Address [address] [place] [address] Care Team Providers Care Crack Off Person Name Role Phone Noe Dejesus MD Primary Care Provider [phone] Reason for Visit * Reason Comments Medicare Annual Wellness Visit Subsequen t Encounter Details Date Type Department Care Team (Latest Contact Info) Description 04/26/2024 9:00 AM EDT Telemedicine [facility] - [facility] [address] [place], [place] [address] [id number] Encounter for subsequent annual wellness visit (AWV) in Medicare patient (Primary Dx) Social History Tobacco Use Types Packs/Day Years [...] care for your loved ones. 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 [...] on file Sexual Orientation Not on file documented as of this encounter Progress Notes * Sarah Finley RN - 04/26/2024 9:00 AM EDT Subjective Fatmata Talbert is a 78 y.o. female who presents for a Subsequent Medicare Annual Wellness Visit. Patient opted for an audio-only visit because patient doesn't have acess to a computer or smart phone I ensured compliance with state and federal regulations by utilizing audio only telecommunication technology. Through verbal confirmation, I verified the patient???s identity and provided information on telephonic delivery of care, HIPAA privacy, and the risks of communicating over the phone. The patient acknowledged the limitations of treatment via telephone and consented to the audio visit. They also confirmed their comfort in a quiet and private location to discuss their health freely. The patient was informed that the visit would be submitted to their insurance,and any applicable co-pay or deductible would be their responsibility. Additionally, if the patient is Limited EnglishProficient, deaf, or hard of hearing, speech impaired, or has another disability which impairs their ability to communicate, the services of a qualified head mechanic will be provided during the visit. Patients Location: home Additional individuals participating in remote visit: self Total Time: 30 minutes Provider's Location: providers office Current Providers List: Patient Care Team: Noe Dejesus MD as PCP - General (Internal Medicine) Risk Assessments There is no height or weight on file to calculate BMI. The BMI NA Calculated fall risk level: Depression Risk Score: 0 Depression Severity: None-minimal Proposed Treatment Actions: None Hearing No data recorded Vision Screening No data recorded Mini Cog Word Recall: 3 STEADI Fall Risk Have you fallen in the past year? yes Number of falls in the past year?2 or more Any injuries from falls? no Feels unsteady when standing or walking? no Are you worried about falling? no Activity of Daily Living (ADLs) Do you need help from others for your personal care such as eating, dressing, toileting, or gettingaround the house?: No Do you experience incontinence?: No Instrumental Activities of Daily Living (IADLs) Do you need help with using the telephone?: No Do you need help with shopping?: No Do you need help with food preparation?: No Do you need help with housekeeping?: No Do you need help with laundry?: No Do you need help handling finances?: No Do you drive?: Yes Do you manage your own medication?: Yes, independent Health Status In general, the patient reports health as: good In general, patient reports life as: good Patient reports sleep pattern as: restless Have you seen a dentist in the last year?: Yes Physical Activity Do you exercise for about 20 minutes or more three days a week?: Yes, most of the time Nutritional Assessment Do you eat a balanced diet including daily serving of fruits, vegetables, and whole grains?: Yes, sometimes Depression Screening (PHQ2) Will the patient answer the depression risk questions?: Y Over the last 2 weeks, how often have you been bothered by little interest or pleasure in doing things?: 0 Over the last 2 weeks, how often have you been bothered by feeling down, depressed, or hopeless?: 0 Depression Risk: 0 Additional Depression Screening (PHQ9) Depression Risk Score NEW: 0 Opioid Risk Tool No data recorded [facility] Mental Status ([facility]) No data recorded Comprehensive Medical and Social History There is no problem list on file for this patient. Past Medical History: Diagnosis Date Age-related macular degeneration DX:Age-related macular degeneration; COMMENT: damaged Asthma Glaucoma DX:Glaucoma Malignant melanoma of skin (CMS/HCC) DX:Malignant melanoma of skin (HCC) Rheumatoid arthritis (CMS/HCC) DX:Rheumatoid arthritis (HCC) Family History Problem Relation Name Age of Onset Coronary artery disease Mother from rheumatic fever Glaucoma Mother Colon cancer Mother Coronary artery disease Father cabg x1 Glaucoma Father Coronary artery disease Brother rheumatic fever Heart attack Brother Stroke Brother Colon cancer Brother No Known Problems Brother toño Breast cancer Other 40 maternal aunt reports that she quit smoking about 31 years ago. Her smoking use included cigarettes. She has never used smokeless tobacco. She reports current alcohol use. She reports that she does not use drugs. Past Surgical History: Procedure Laterality Date BREAST BIOPSY PROCEDURE: BX BREAST; PERC NEEDLE CORE W/IMAG GUID; COMMENT: ? left breast bx many years ago neg HYSTERECTOMY PROCEDURE: HISTORICAL HYSTERECTOMY; COMMENT: age 23 KNEE SURGERY PROCEDURE: HISTORICAL KNEE SURGERY TOTAL KNEE ARTHROPLASTY Bilateral PROCEDURE: HISTORICAL TOTAL KNEE REPLACE No Known Allergies Current Outpatient Medications Medication Sig Dispense Refill brimonidine (ALPHAGAN) 0.2 % ophthalmic solution Administer 1 drop into both eyes 2 (two) times a day. citalopram (CeleXA) 20 mg tablet Take 1 tablet (20 mg total) by mouth 1 (one) time each day. folic acid (FOLVITE) 1 mg tablet Take 1 tablet (1 mg total) by mouth 1 (one) time each day. leflunomide (ARAVA) 20 mg tablet Take 1 tablet (20 mg total) by mouth 1 (one) time each day. methotrexate, PF, (Rasuvo, PF,) 25 mg/0.5 mL auto-injector Inject 25 mg under the skin every 30 (thirty) days. metoprolol tartrate (LOPRESSOR) 25 mg tablet Take 1 tablet (25 mg total) by mouth 2 (two) times a day. No current facility-administered medications for this visit. Review of Systems Objective: There were no vitals filed for this visit. Physical Exam Assessment/Plan: Plan Health Maintenance Topic Date Due Diabetes: Annual Foot Exam Never done Diabetes: Annual Retina Eye Exam Never done DTaP,Tdap,and Td Vaccines (1 - Tdap) Never done Zoster Vaccines (1 of 2) Never done Pneumococcal Vaccine: 50+ Years (2 of 2 - PPSV23) 07/24/2015 Osteoporosis Screening (Bone Density Screening) Never done Social Influencers of Health Screening Never done Medicare Annual Wellness Visit Never done Diabetes: Annual Urine Albumin-Creatinine Ratio (uACR) Never done Diabetes: Blood Sugar Control Test (HGBA1C) 05/26/2024 Diabetes: Annual GFR (Glomerular Filtration Rate) 11/25/2024 Hypertension/CHF/CAD Annual BMP Blood Test 11/25/2024 Falls Risk Assessment 04/26/2025 Depression Screening 04/26/2025 Cholesterol Screening (Lipid Panel) 11/25/2028 Influenza Vaccine Completed COVID-19 Vaccine Completed RSV Immunization Patients 60+ Years Old Completed HIB Vaccines Aged Out Hepatitis B Vaccines Aged Out IPV Vaccines Aged Out Hepatitis A Vaccines Aged Out MMR Vaccines Aged Out Varicella Vaccines Aged Out Meningococcal ACWY Vaccine Aged Out Meningococcal B Vacine Aged Out HPV Vaccines Aged Out RSV Immunization Patients Under 20 months Aged Out Code status: No Order Preventative recommendations were reviewed and discussed with the patient. During the visit we discussed: NA Advanced Directives: NA Patient Instructions (the written plan) were given to the patient. NA No follow-ups on file. documented in this encounter Plan of Treatment Not on file documented as of this encounter Visit Diagnoses Diagnosis Encounter for subsequent annual wellness visit (AWV) in Medicare patient- Primary documented in this encounter Historical Medications * This list may reflect changes made after this encounter. brimonidine (ALPHAGAN) 0.2 % ophthalmic solution Administer 1 drop into both eyes 2 (two) times a day. methotrexate, PF, (Rasuvo, PF,) 25 mg/0.5 mL auto-injector Inject 25 mg under the skin every 30 (thirty) days. leflunomide (ARAVA) 20 mg tablet Take 1 tablet (20 mg total) by mouth 1 (one) time each day. folic acid (FOLVITE) 1 mg tablet Take 1 tablet (1 mg total) by mouth 1 (one) time each day. metoprolol tartrate (LOPRESSOR) 25 mg tablet Take 1 tablet (25 mg total) by mouth 2 (two) times a day. citalopram (CeleXA) 20 mg tablet Take 1 tablet (20 mg total) by mouth 1 (one) time each day. added in this encounter Additional Health Concerns Assessment Noted Time PHQ-9 Depression Total Score: 0 04/27/19 25 9:29 AM EDT documented as of this encounter Care Teams Crack Off Person Relationship Specialty Start Date End Date Noe Dejesus MD [address] [place] [id number] PCP - General Internal Medicine 01/30/15 documented as of this encounter
--- OUTSIDE RECORDS SUMMARY | 2024-05-03 09:13 | XMS_ITS | Patient Health Record ---
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 Problem [id number] Rheumatoid arthritis involving multiple sites with positive rheumatoid factor (M05.79) Active confirmed Plan Of Treatment Pending Test Test Name Order Date X ray : Foot, left 3v 09/25/2020 Insurance Providers Payer Name Payer Address Payer Phone Subscriber Number Group Number Insured Name Patient Relationship to Insured Coverage Start Date Coverage End Date [facility] [address] [place] [address] [phone] [id number] Fatmata Talbert Self - patient is the insured Medical (General) History Medical History History ICD Code Rheumatoid arthritis Controlled type 2 Diabetes Mellitus Surgical History Surgery Date(Month/Year) Breast Biopsy Historical hysterectomy Historical Right and left total knee rep lacement.
== END ==
LOC: HO.CARD 08:50
PROVIDERS: PCP Internal Medicine; Visit Provider Nurse Practitioner Family
DX: I49.3 Ventricular premature depolarization (principal); I47.10 Supraventricular tachycardia, unspecified
CPT/HCPCS: 93242

== ENCOUNTER → 2024-05-03 08:55 | Outpatient (BNV) | payer MEDICARE, SELFPAY | PROVIDERS: PCP Internal Medicine; Visit Provider Internal Medicine Cardiovascular Disease | DX: I49.3 Ventricular premature depolarization (principal) | CPT/HCPCS: 93244 ==